=== PATIENT | female | born 1940 | race Caucasian/White ===

== ENCOUNTER 2018-07-04 18:54 | Inpatient (IN) | payer OTHER, MEDICARE, SELFPAY ==
--- NOTE | 2018-07-04 01:15 | RAD_ITS ---
STUDY: X-RAY - ABDOMEN/PELVIS REASON FOR EXAM: Female, 78 years old. MID AND LOWER ABD PAIN ALONG WITH N/V/D THAT STARTED YESTERDAY. NG PLACEMENT. TECHNIQUE: Single AP view of the abdomen / pelvis. COMPARISON: None. FINDINGS: Normal visualized lung bases. NG tube is seen its tip is at the gastric fundus is in good position. There is an unremarkable bowel gas pattern. There is no demonstrated free abdominal air. The visualized liver, spleen and kidneys are grossly normal in size and morphology. Normal soft tissue structures. Normal visualized osseous structures. RAD/Abdomen Single View (Portable) IMPRESSION: Normal x-ray examination of the abdomen and pelvis. Electronically Signed: Alexi John MD at 2:31 EDT Tel , Service support ,
[2018-07-04 18:55] VITALS: BP 155/90; PULSE 73; PULSE 81; RESP 14; RESP 18; TEMP 36.2; O2SAT 97; O2SAT 99; BMI 28.4
--- NOTE | 2018-07-04 20:11 | CT_ITS ---
STUDY: CT ABDOMEN AND PELVIS WITH CONTRAST REASON FOR EXAM: Female, 78 years old. Low abdominal pain RADIATION DOSAGE (If Supplied By Facility): CTDIvol = ( 16.19 ) mGy, DLP = ( 1059.67 ) mGycm TECHNIQUE: Transaxial images were obtained from the lower chest to the upper thighs with oral contrast. 100 ml of Isovue 300 contrast was administered. Sagittal and coronal images were reconstructed. Individualized dose optimization techniques were used for this CT. COMPARISON: None. FINDINGS: There is a small calcified granuloma in the periphery of the right lower lobe. There is no pleural effusion. The heart is normal in size. The liver is unremarkable. The gallbladder and biliary system are unremarkable. The spleen is unremarkable. The pancreas is unremarkable. The adrenal glands are unremarkable. The right kidney is unremarkable. There is no dilatation of the collecting system in the right kidney. There are benign cysts in the left kidney. The largest measures 4.5 cm in the lower pole. There is no dilatation of the collecting system in the left kidney. There is pyloric wall thickening. There are dilated loops of small bowel. Distal small bowel is decompressed. There are diverticula in the distal colon without adjacent stranding. The appendix is visualized and appears normal. There are minimal vascular calcifications. The inferior vena cava is unremarkable. The retroperitoneum is unremarkable. There is minimal free fluid in the left paracolic gutter. The urinary bladder is unremarkable. The uterus is normal in appearance. There are no abnormal masses in the adnexal regions. There is minimal fluid in the pelvis. There is a small umbilical hernia containing fat. There are moderate degenerative changes in the visualized spine. There is mild levoscoliosis of the lumbar spine. CT/Abdomen/Pelvis WITH Contrast IMPRESSION: There are findings of small bowel obstruction. The transition may be in the left pelvis or left lower quadrant. There is minimal ascites. There is no free air. There is diverticulosis of the distal colon. Electronically Signed: Tonya Alexander MD at 22:46 EDT Tel Direct: [phone], Service support ,
--- NOTE | 2018-07-04 20:11 | EKG12_ITS ---
Test Reason : NAUSEA Blood Pressure : / mmHG Vent. Rate : 060 BPM Atrial Rate : 060 BPM P-R Int : 134 ms QRS Dur : 074 ms QT Int : 480 ms P-R-T Axes : 067 070 231 degrees QTc Int : 480 ms Normal sinus rhythm Left ventricular hypertrophy T wave abnormality, consider inferior ischemia T wave abnormality, consider anterolateral ischemia Prolonged QT Abnormal ECG Confirmed by BJ JONES ([id number]), makeup editor ASHLEY TELLEZ ([id number]) on 07/09/2018 8:47:55 AM Referred By: Confirmed By:BJ JONES
[2018-07-04 20:13] LABS: Absolute Lymphocyte Count 1.32 X10^3/ul (0.83-4.51); Hematocrit 44.1 % (37-47); Hemoglobin 14.6 g/dl (12.0-15.0); Lymphocyte # 1.32 X10^3/ul (4.0); Lymphocyte % 17.1 % (19-41); Mean Corp Hgb Conc 33.1 g/gl (32-36); Mean Corpuscular Volume 87.5 fL (81-99); Mean Platelet Vol. 11.3 fl (6.2-12.0); Monocyte# 0.42 X10^3/uL; Monocyte% 5.4 % (0-10); Neutrophil # 5.96 X10^3/uL (2.7-7.7); Neutrophil % 77.4 % (47-70); Platelet Count 320 K/mm3 (150-450); RBC Distribution Width SD 44.2 fl (35.1-43.9); Red Blood Count 5.04 M/mm3 (4.2-5.4); White Blood Count 7.7 K/mm3 (4.4-11.0)
--- NOTE | 2018-07-04 20:14 | ED.DCSUM_ITS ---
- ER Visit Summary Date of Service: 07/04/18 Chief Complaint: Abdominal pain History of Present Illness: The patient is a 78 F presenting with nausea, vomiting, abdominal pain. She states this started yesterday. She had constipation yesterday but was able to have a small bowel movement this morning. She has felt nauseated with abdominal cramping throughout the day today. She denies fever. Denies chest pain or shortness of breath. Physical Examination: Vitals are stable. Patient is afebrile. Alert no acute distress. HEENT exam is unremarkable. Neck is supple. Lungs are clear and equal bilaterally. Heart is regular rate and rhythm. Abdomen is soft mild diffuse tenderness, no rebound or guarding. Extremities are unremarkable. Skin is warm and dry. No focal neurologic deficit. Remainder of exam is unremarkable. Emergency Department Course and Treatment: Patient was given morphine, Zofran IV. CBC, chemistries unremarkable other than glucose 147. AST is 39. Lipase is 52. Urinalysis unremarkable. Troponin is negative. Lactic acid is 1.9. EKG is sinus with anterior lateral and inferior T wave inversion. This is seen on previous EKG, T wave inversion is now more pronounced. Patient denies chest pain. CT abdomen pelvis shows there are findings of small bowel obstruction. The transition may be in the left pelvis or left lower quadrant. There is minimal ascites. There is no free air. There is diverticulosis of the distal colon. NG tube was ordered. Discussed with Dr. Sultana and Dr. Christine. Patient will be admitted. Disposition: Admission Impression: Small bowel obstruction This note was generated with [employer] dictation software. It may contain incorrect words, spelling, and punctuation that were not noted in review of the chart prior to signing ED Disposition - Plan for ED Patient: Chief Complaint: Nausea/Vomiting/Diarrhea Referrals: Meryl Mott MD [Primary Care Provider] -
[2018-07-04 20:19] LABS: POSITIVE COUNT NO; POSITIVE DIFFERENTIAL NO; POSITIVE MORPHOLOGY NO
[2018-07-04] MEDS: Ondansetron 4 MG/2 ML Vial IV (20:25)
[2018-07-04] MEDS: Morphine 4 MG/ML Syringe IV (20:29)
[2018-07-04 20:35] LABS: Anion Gap 8 (5-15); BUN 16 mg/dL (7-18); BUN/Creat Ratio 19.3 RATIO (10-20); Calcium,Total 10.2 mg/dL (8.5-10.1); Chloride 99 mmol/L (98-107); Creatinine, Serum 0.83 mg/dL (0.55-1.02); EST Glomerular Filtration Rate 71 mL/min (>60); Est Glom Filt Rate - Afr Amer 86 mL/min (>60); Estimated Creatinine Clearance 53.98 ml/min; Glucose 147 mg/dL (74-106); Potassium 4.8 mmol/L (3.5-5.1); Sodium Level 137 mmol/L (136-145)
[2018-07-04 20:54] VITALS: BP 148/70; PULSE 66; RESP 14; O2SAT 95
[2018-07-04 21:01] LABS: AST(SGOT) 39 U/L (15-37); Alanine Aminotransfer ALT/SGPT 31 U/L (13-56); Albumin, Serum 3.8 g/dL (3.2-5.0); Alkaline Phosphatase 81 U/L (45-117); Globulin 4.7 g/dL (2.2-4.2); Lipase 52 U/L (73-393); Protein, Total 8.5 g/dL (6.4-8.2)
[2018-07-04 21:06] LABS: Lactic Acid 1.9 mmol/L (0.4-2.0)
[2018-07-04 21:26] LABS: Bacteria 0 SEEN /hpf (None Seen); Mucous, Urine 0 SEEN /hpf (<or=2+)
[2018-07-04 21:33] LABS: Color, Urine Yellow (Yellow); Glucose, Dipstick Normal (Normal); Leukocyte Esterase-Dipstick 25 /ul (Negative); Nitrite-Dipstick Negative (Negative); Occult Blood-Urine 10 /ul (Negative); Protein-Dipstick 30 mg/dl (Negative); Urine Clarity Sl. Cloudy (Clear); Urine Urobilinogen 1 mg/dl (Normal)
[2018-07-04 21:47] LABS: Urine Bilirubin Dipstick 1 mg/dL (Negative)
[2018-07-04 21:49] LABS: Ketone-Dipstick 150 mg/dl (Negative)
--- NOTE | 2018-07-04 21:49 | ED.RN ---
lab called with critical lab results. urine ketones 150. Dr. kirby made aware no new orders at this time
[2018-07-04 21:50] LABS: Hyaline Cast 0-5 SEEN /lpf (0-5); Red Blood Cells-Urine 0-5 SEEN /hpf (0-5); Squamous Epithelial Cells - UA 0-5 SEEN /hpf (5-10); White Blood Cells 0-5 SEEN /hpf (0-5)
[2018-07-04 22:25] VITALS: BP 150/78; PULSE 83; RESP 16; O2SAT 98
--- NOTE | 2018-07-04 23:45 | PCM.HP.STD ---
Problem List (1) SBO (small bowel obstruction) Status: Acute (2) Acute electrocardiogram changes Status: Acute (3) HTN (hypertension) Status: Chronic Qualifiers: Hypertension type: essential hypertension Qualified Code(s): I10 - Essential (primary) hypertension (4) HLD (hyperlipidemia) Status: Chronic Qualifiers: Hyperlipidemia type: unspecified Qualified Code(s): E78.5 - Hyperlipidemia, unspecified (5) Diabetes mellitus, type II Status: Chronic Qualifiers: Diabetes mellitus termite control service representative insulin use: without senior care use Diabetes mellitus complication status: with unspecified complications Qualified Code(s): E11.8 - Type 2 diabetes mellitus with unspecified complications History of Present Illness Date of Admission: 07/04/18 Chief Complaint: Abdominal pain, N/V 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 Patient noted following initial loose stools she had no stools until this morning and noted it was a small mildly loose brown stool. Patient notes that her abdomen has felt bloated. Any attempts at oral intake today have resulted in emesis. Workup in the ED included CBC with WBC 7.7, heme globin 14.6, platelet 320 without marked shift, CMP with glucose 147, lactic acid 1.9, calcium 10.2, AST/ALT 39/31, troponin <0.015, EKG w/ non-specific T wave inversions noted on prior EKGs, more marked than prior, lipase 52, urinalysis with specific gravity 1.020 with ketones with evidence of dehydration, CT A/P w/ findings of a small bowel obstruction with possible transition in the left pelvis or left lower quadrant with minimal ascites and no evidence of free air with noted diverticulosis of the distal colon. In the ED patient administered normal saline, Zofran and morphine. Following discussions with the ED physician planned placement NG tube in the ED. ED physician discussed case with Dr. Sultana, surgeon who plans to continue to follow. Past Medical History Past Medical History (Chronic Problems): Chronic Problems HTN (hypertension) (Chronic) HLD (hyperlipidemia) (Chronic) Diabetes mellitus, type II (Chronic) Allergies Penicillins [PCN] Allergy (Verified 07/04/18 19:44) Rash albuterol [From Ventolin HFA] Adverse Reaction (Verified 07/04/18 19:44) Other Home Medications: Ambulatory Orders Medication Instructions Recorded Albuterol IH (ProAir) [Proair Hfa] 2 puff INHALATION Q4H PRN PRN 07/04/18 Aspirin E.C. [Ecotrin] 325 mg PO DAILY 07/04/18 Atorvastatin Calcium [Lipitor] 40 mg PO DAILY 07/04/18 Budesonide/Formoterol 160/4.5 2 puff INHALATION BID PRN 07/04/18 [Symbicort 160/4.5 Mcg Inhaler (SP)] Felodipine [Plendil] 10 mg PO DAILY 07/04/18 Hydrochlorothiazide [Hctz] 25 mg PO DAILY 07/04/18 Metoprolol Succinate 100 mg PO DAILY 07/04/18 Potassium Chloride 10 meq PO DAILY 07/04/18 Ramipril 10 mg PO DAILY 07/04/18 Surgical History: - - Fibroid myomectomy, tonsillectomy, bilateral hand surgery, right knee arthroscopic surgery. 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 Paternal History Items: - - Patient notes a maternal and paternal family history of heart disease with UT in her father at age 45 and in her mother at age 87 as well as a history of diabetes in both. Review of Systems Constitutional: Reports: Malaise, Weakness, Fatigue. Denies: Chills, Fever, Weight Change HEENT: Denies: Head Aches, Sinus Congestion, Sinus Drainage Cardiovascular: Denies: Chest Pain, Palpitations Respiratory: Denies: Cough, Shortness of breath at rest, Sputum production Gastrointestinal: Reports: Abdominal Pain, Diarrhea, Nausea, Vomiting Genitourinary: Denies: Dysuria Musculoskeletal: Denies: Joint Pain, Joint Tenderness Skin: Denies: Rash, Wounds Neurological: Denies: Numbness, Tingling, Focal weakness Psychiatric: Denies: Anxiety, Depression, Homicidal Ideations, Suicidal Ideations Hematologic/ Lymphatic: Denies: Easy Bruising, Easy Bleeding VTE Information - Inpt Only VTE Present on Admission: No VTE Mechan Device Prophylaxis: SCD's VTE Pharm Prophylaxis ordered?: Yes Patient Problems: Active and Suspected Problems SBO (small bowel obstruction) (Acute) Acute electrocardiogram changes (Acute) Subjective: Seated upright in the ED bed, fatigued appearance, notes pain mildly improved after recent morphine. Objective: Physical Examination: General: awake, alert, oriented x 3 and cooperative, seated upright in the ED bed, notes pain still ongoing, lessened w/ recent regimen. Skin: normal color, turgor, no icterus, cyanosis. HEENT: AT/NC, EOMI, PERRLA, dry MM, no carotid bruits or JVD noted. Lungs: CTA bilaterally, moderate effort, mild decrease BL bases, no rales, ronchi or wheezing. Heart: Regular rate and rhythm; no gallop, rub audible. Abdomen: soft, mildly generalized discomfort w/ palpation, moderate distention, absent BS, difficult to assess HSM secondary to discomfort. Extremities: no cyanosis, clubbing, or edema. Neurological: patient awake, alert, oriented x 3; cognitive function intact; pupils equally reactive to light and accomodation; cranial nerves II-XII grossly normal, moving all 4 extremities, no focal deficits, strength moderately to severely globally decreased secondary to acute presentation. Psychiatric: affect appears fatigued, no acute evidence of depressive or anxiety feelings. - Physical Exam Vital Signs Temp Pulse Resp BP Pulse Ox 97.2 F L 83 16 150/78 H 98 07/04/18 18:55 07/04/18 22:25 07/04/18 22:25 07/04/18 22:25 07/04/18 22:25 Oxygen Delivery Method Room Air Weight: 176 lb 2.389 oz Body Mass Index (BMI) 28.4 Laboratory Tests Past 24 Hrs 07/04/18 07/04/18 07/04/18 19:43 19:43 19:43 WBC 7.7 RBC 5.04 Hgb 14.6 Hct 44.1 MCV 87.5 MCH 29.0 MCHC 33.1 RDW 14.0 RDW Differential 44.2 H Plt Count 320 MPV 11.3 Immature Gran % (Auto) 0.100 Neut % (Auto) 77.4 H Lymph % (Auto) 17.1 L [place] % (Auto) 5.4 Eos % (Auto) 0.0 Baso % (Auto) 0.0 Absolute Neuts (auto) 6.0 Absolute Lymphs (auto) 1.32 Total Counted Not Reportable Sodium 137 Potassium 4.8 Chloride 99 Carbon Dioxide 30.0 Anion Gap 8 BUN 16 Creatinine 0.83 Estim Creat Clear Calc 53.98 Est GFR (MDRD) Af Amer 86 Est GFR (MDRD) Non-Af 71 BUN/Creatinine Ratio 19.3 Glucose 147 H Lactic Acid Calcium 10.2 H Total Bilirubin 0.70 Direct Bilirubin 0.10 AST 39 H ALT 31 Alkaline Phosphatase 81 Troponin I < 0.015 Total Protein 8.5 H Albumin 3.8 Globulin 4.7 H Lipase 52 L Urine Color Urine Clarity Urine pH Ur Specific [place] Urine Protein Urine Glucose (UA) Urine Ketones Urine Occult Blood Urine Nitrite Urine Bilirubin Urine Urobilinogen Ur Leukocyte Esterase Urine RBC Urine WBC Ur Squamous Epith Cells Urine Bacteria Hyaline Casts Urine Mucus 07/04/18 07/04/18 20:20 21:15 WBC RBC Hgb Hct MCV MCH MCHC RDW RDW Differential Plt Count MPV Immature Gran % (Auto) Neut % (Auto) Lymph % (Auto) [place] % (Auto) Eos % (Auto) Baso % (Auto) Absolute Neuts (auto) Absolute Lymphs (auto) Total Counted Sodium Potassium Chloride Carbon Dioxide Anion Gap BUN Creatinine Estim Creat Clear Calc Est GFR (MDRD) Af Amer Est GFR (MDRD) Non-Af BUN/Creatinine Ratio Glucose Lactic Acid 1.9 Calcium Total Bilirubin Direct Bilirubin AST ALT Alkaline Phosphatase Troponin I Total Protein Albumin Globulin Lipase Urine Color Yellow Urine Clarity Sl. Cloudy Urine pH 6.0 Ur Specific [place] 1.020 Urine Protein 30 H Urine Glucose (UA) Normal Urine Ketones 150 H Urine Occult Blood 10 H Urine Nitrite Negative Urine Bilirubin 1 H Urine Urobilinogen 1 H Ur Leukocyte Esterase 25 H Urine RBC 0-5 SEEN Urine WBC 0-5 SEEN Ur Squamous Epith Cells 0-5 SEEN Urine Bacteria 0 SEEN Hyaline Casts 0-5 SEEN Urine Mucus 0 SEEN Assessment/Plan All Active Problems SBO (small bowel obstruction) (Acute) Acute electrocardiogram changes (Acute) The patient is a 78 y/o F w/ PMHx: HTN, HLD, Diabetes mellitus type II, Asthma who presents to the [facility] ED on 07/04/18 with onset of generalized abdominal discomfort described as cramping starting the day prior following food intake, specifically her Cleary with then onset of loose bowels and on day of ED presentation worsened cramping with nausea and vomiting. (1) Abdominal pain, nausea, emesis w/ SBO: In the ED work-up included CT A/P w/ findings of a small bowel obstruction with possible transition in the left pelvis or left lower quadrant with minimal ascites and no evidence of free air with noted diverticulosis of the distal colon. Will admit to MS telemetry, maintain on IVFs, continue NGT to suction, strict I&Os, IV pain/anti-emetics PRN, serial KUB as needed to montior bowel function, Famotidine IV, maintain NPO on bowel rest. General surgery Dr. Sultana consulted, pending. (2) EKG Changes: Diffuse T-wave inversions, noted on prior EKGs, more pronounced upon current presentation, maintain on telemetry, repeat EKG in a.m., cycle cardiac enzymes, obtain magnesium level with supplementation if appropriate, obtain echo in case of operative needs. (3) Diabetes mellitus type II: Hold oral home regimen, NPO status, accu checks q 6 hours w/ ISS. (4) Chronic Asthma: ATC duonebs, PRN albuterol, HOB, IS parameters. (5) Hypertension: Holding oral medications, PRN hydralazine. (6) Hyperlipidemia: Hold home statin regimen. (7) DVT Prophylaxis: SCDs, lovenox. Code Visit Inpatient E&M: 47804 Init Hosp L3
--- NOTE | 2018-07-04 23:54 | HP.PCM_ITS ---
Problem List (1) SBO (small bowel obstruction) Status: Acute (2) Acute electrocardiogram changes Status: Acute (3) HTN (hypertension) Status: Chronic Qualifiers: Hypertension type: essential hypertension Qualified Code(s): I10 - Essential (primary) hypertension (4) HLD (hyperlipidemia) Status: Chronic Qualifiers: Hyperlipidemia type: unspecified Qualified Code(s): E78.5 - Hyperlipidemia, unspecified (5) Diabetes mellitus, type II Status: Chronic Qualifiers: Diabetes mellitus long term care administrator insulin use: without residential use Diabetes mellitus complication status: with unspecified complications Qualified Code(s): E11.8 - Type 2 diabetes mellitus with unspecified complications History of Present Illness Date of Admission: 07/04/18 Chief Complaint: Abdominal pain, N/V 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 Patient noted following initial loose stools she had no stools until this morning and noted it was a small mildly loose brown stool. Patient notes that her abdomen has felt bloated. Any attempts at oral intake today have resulted in emesis. Workup in the ED included CBC with WBC 7.7, heme globin 14.6, platelet 320 without marked shift, CMP with glucose 147, lactic acid 1.9, calcium 10.2, AST/ALT 39/31, troponin <0.015, EKG w/ non- specific T wave inversions noted on prior EKGs, more marked than prior, lipase 52, urinalysis with specific gravity 1.020 with ketones with evidence of dehydration, CT A/P w/ findings of a small bowel obstruction with possible transition in the left pelvis or left lower quadrant with minimal ascites and no evidence of free air with noted diverticulosis of the distal colon. In the ED patient administered normal saline, Zofran and morphine. Following discussions with the ED physician planned placement NG tube in the ED. ED physician discussed case with Dr. Sultana, surgeon who plans to continue to follow. Past Medical History Past Medical History (Chronic Problems): Chronic Problems HTN (hypertension) (Chronic) HLD (hyperlipidemia) (Chronic) Diabetes mellitus, type II (Chronic) Allergies Penicillins [PCN] Allergy (Verified 07/04/18 19:44) Rash albuterol [From Ventolin HFA] Adverse Reaction (Verified 07/04/18 19:44) Other Home Medications: Ambulatory Orders Medication Instructions Recorded Albuterol IH (ProAir) [Proair Hfa] 2 puff INHALATION Q4H PRN PRN 07/04/18 Aspirin E.C. [Ecotrin] 325 mg PO DAILY 07/04/18 Atorvastatin Calcium [Lipitor] 40 mg PO DAILY 07/04/18 Budesonide/Formoterol 160/4.5 2 puff INHALATION BID PRN 07/04/18 [Symbicort 160/4.5 Mcg Inhaler (SP)] Felodipine [Plendil] 10 mg PO DAILY 07/04/18 Hydrochlorothiazide [Hctz] 25 mg PO DAILY 07/04/18 Metoprolol Succinate 100 mg PO DAILY 07/04/18 Potassium Chloride 10 meq PO DAILY 07/04/18 Ramipril 10 mg PO DAILY 07/04/18 Surgical History: - - Fibroid myomectomy, tonsillectomy, bilateral hand surgery, right knee arthroscopic surgery. 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 Paternal History Items: - - Patient notes a maternal and paternal family history of heart disease with CA in her father at age 45 and in her mother at age 87 as well as a history of diabetes in both. Review of Systems Constitutional: Reports: Malaise, Weakness, Fatigue. Denies: Chills, Fever, Weight Change HEENT: Denies: Head Aches, Sinus Congestion, Sinus Drainage Cardiovascular: Denies: Chest Pain, Palpitations Respiratory: Denies: Cough, Shortness of breath at rest, Sputum production Gastrointestinal: Reports: Abdominal Pain, Diarrhea, Nausea, Vomiting Genitourinary: Denies: Dysuria Musculoskeletal: Denies: Joint Pain, Joint Tenderness Skin: Denies: Rash, Wounds Neurological: Denies: Numbness, Tingling, Focal weakness Psychiatric: Denies: Anxiety, Depression, Homicidal Ideations, Suicidal Ideations Hematologic/ Lymphatic: Denies: Easy Bruising, Easy Bleeding VTE Information - Inpt Only VTE Present on Admission: No VTE Mechan Device Prophylaxis: SCD's VTE Pharm Prophylaxis ordered?: Yes Patient Problems: Active and Suspected Problems SBO (small bowel obstruction) (Acute) Acute electrocardiogram changes (Acute) Subjective: Seated upright in the ED bed, fatigued appearance, notes pain mildly improved after recent morphine. Objective: Physical Examination: General: awake, alert, oriented x 3 and cooperative, seated upright in the ED bed, notes pain still ongoing, lessened w/ recent regimen. Skin: normal color, turgor, no icterus, cyanosis. HEENT: AT/NC, EOMI, PERRLA, dry MM, no carotid bruits or JVD noted. Lungs: CTA bilaterally, moderate effort, mild decrease BL bases, no rales, ronchi or wheezing. Heart: Regular rate and rhythm; no gallop, rub audible. Abdomen: soft, mildly generalized discomfort w/ palpation, moderate distention, absent BS, difficult to assess HSM secondary to discomfort. Extremities: no cyanosis, clubbing, or edema. Neurological: patient awake, alert, oriented x 3; cognitive function intact; pupils equally reactive to light and accomodation; cranial nerves II-XII grossly normal, moving all 4 extremities, no focal deficits, strength moderately to severely globally decreased secondary to acute presentation. Psychiatric: affect appears fatigued, no acute evidence of depressive or anxiety feelings. - Physical Exam Vital Signs Temp Pulse Resp BP Pulse Ox 97.2 F L 83 16 150/78 H 98 07/04/18 18:55 07/04/18 22:25 07/04/18 22:25 07/04/18 22:25 07/04/18 22:25 Oxygen Delivery Method Room Air Weight: 176 lb 2.389 oz Body Mass Index (BMI) 28.4 Laboratory Tests Past 24 Hrs 07/04/18 07/04/18 07/04/18 19:43 19:43 19:43 WBC 7.7 RBC 5.04 Hgb 14.6 Hct 44.1 MCV 87.5 MCH 29.0 MCHC 33.1 RDW 14.0 RDW Differential 44.2 H Plt Count 320 MPV 11.3 Immature Gran % (Auto) 0.100 Neut % (Auto) 77.4 H Lymph % (Auto) 17.1 L [place] % (Auto) 5.4 Eos % (Auto) 0.0 Baso % (Auto) 0.0 Absolute Neuts (auto) 6.0 Absolute Lymphs (auto) 1.32 Total Counted Not Reportable Sodium 137 Potassium 4.8 Chloride 99 Carbon Dioxide 30.0 Anion Gap 8 BUN 16 Creatinine 0.83 Estim Creat Clear Calc 53.98 Est GFR (MDRD) Af Amer 86 Est GFR (MDRD) Non-Af 71 BUN/Creatinine Ratio 19.3 Glucose 147 H Lactic Acid Calcium 10.2 H Total Bilirubin 0.70 Direct Bilirubin 0.10 AST 39 H ALT 31 Alkaline Phosphatase 81 Troponin I < 0.015 Total Protein 8.5 H Albumin 3.8 Globulin 4.7 H Lipase 52 L Urine Color Urine Clarity Urine pH Ur Specific [place] Urine Protein Urine Glucose (UA) Urine Ketones Urine Occult Blood Urine Nitrite Urine Bilirubin Urine Urobilinogen Ur Leukocyte Esterase Urine RBC Urine WBC Ur Squamous Epith Cells Urine Bacteria Hyaline Casts Urine Mucus 07/04/18 07/04/18 20:20 21:15 WBC RBC Hgb Hct MCV MCH MCHC RDW RDW Differential Plt Count MPV Immature Gran % (Auto) Neut % (Auto) Lymph % (Auto) [place] % (Auto) Eos % (Auto) Baso % (Auto) Absolute Neuts (auto) Absolute Lymphs (auto) Total Counted Sodium Potassium Chloride Carbon Dioxide Anion Gap BUN Creatinine Estim Creat Clear Calc Est GFR (MDRD) Af Amer Est GFR (MDRD) Non-Af BUN/Creatinine Ratio Glucose Lactic Acid 1.9 Calcium Total Bilirubin Direct Bilirubin AST ALT Alkaline Phosphatase Troponin I Total Protein Albumin Globulin Lipase Urine Color Yellow Urine Clarity Sl. Cloudy Urine pH 6.0 Ur Specific [place] 1.020 Urine Protein 30 H Urine Glucose (UA) Normal Urine Ketones 150 H Urine Occult Blood 10 H Urine Nitrite Negative Urine Bilirubin 1 H Urine Urobilinogen 1 H Ur Leukocyte Esterase 25 H Urine RBC 0-5 SEEN Urine WBC 0-5 SEEN Ur Squamous Epith Cells 0-5 SEEN Urine Bacteria 0 SEEN Hyaline Casts 0-5 SEEN Urine Mucus 0 SEEN Assessment/Plan All Active Problems SBO (small bowel obstruction) (Acute) Acute electrocardiogram changes (Acute) The patient is a 78 y/o F w/ PMHx: HTN, HLD, Diabetes mellitus type II, Asthma who presents to the [facility] ED on 07/04/18 with onset of generalized abdominal discomfort described as cramping starting the day prior following food intake, specifically her Cleary with then onset of loose bowels and on day of ED presentation worsened cramping with nausea and vomiting. (1) Abdominal pain, nausea, emesis w/ SBO: In the ED work-up included CT A/P w/ findings of a small bowel obstruction with possible transition in the left pelvis or left lower quadrant with minimal ascites and no evidence of free air with noted diverticulosis of the distal colon. Will admit to MS telemetry, maintain on IVFs, continue NGT to suction, strict I&Os, IV pain/anti-emetics PRN, serial KUB as needed to montior bowel function, Famotidine IV, maintain NPO on bowel rest. General surgery Dr. Sultana consulted, pending. (2) EKG Changes: Diffuse T-wave inversions, noted on prior EKGs, more pronounced upon current presentation, maintain on telemetry, repeat EKG in a.m., cycle cardiac enzymes, obtain magnesium level with supplementation if appropriate, obtain echo in case of operative needs. (3) Diabetes mellitus type II: Hold oral home regimen, NPO status, accu checks q 6 hours w/ ISS. (4) Chronic Asthma: ATC duonebs, PRN albuterol, HOB, IS parameters. (5) Hypertension: Holding oral medications, PRN hydralazine. (6) Hyperlipidemia: Hold home statin regimen. (7) DVT Prophylaxis: SCDs, lovenox. Code Visit Inpatient E&M: 24941 Init Hosp L3
[2018-07-05] VITALS (16 sets, daily range): BP systolic 124–176; BP diastolic 63–90; PULSE 73–102; RESP 16–18; TEMP 36.8–37.2; O2SAT 93–98; BMI 28.4
[2018-07-05] MEDS: Lidocaine 4% 5 ML Ampul 2 ML INHALATION (00:24)
[2018-07-05] MEDS: Morphine 4 MG/ML Syringe IV (00:26)
--- NOTE | 2018-07-05 02:45 | ECHOD_ITS ---
[id number] ECHO^ECHOD^Echo Complete [id number] TAG_START Cardiovascular Services Echocardiogram [facility] [place] [id number] Ordering Physician: Yadira Christine TAG_ENDED TAG_START Name: CARO BARRON Study Date: 07/05/2018 08:16 AM BP: 143/63 mmHg Patient Location: MS3^MS302^1 BSA: 1.9 m2 : 1940 Gender: Female Height: 66 in Age: 78 yrs Weight: 176 lb History: ABD PAIN, HTN, HLD, DM II, + cardiac fam Hx (dad @ 45). TAG_ENDED Reason For Study: ABN EKG Procedure This was a 2D Doppler, Color Flow transthoracic echocardiogram. Exam performed portable in patient room. Left Ventricle Mild concentric left ventricular hypertrophy. The estimated ejection fraction is 75 %. Stage 1 diastolic dysfunction. No regional wall motion abnormalities noted. TAG_START I Segments Size 1-2 small X - Cannot 1 - Normal 2 - 3 - Akinetic 4 - Dyskinetic3-5 moderate Interpret Hypokinetic 6-14 large 5 - Aneurysmal 15-16 diffuse TAG_ENDED Right Ventricle Normal size and thickness. Normal systolic function. Atria Normal left atrium. Normal right atrium. Normal atrial septum. Mitral Valve The mitral valve is structurally normal. No prolapse or stenosis seen. Tricuspid Valve Normal tricuspid valve. Trivial tricuspid valve insufficiency. Right ventricular systolic pressure estimated to be 32 mmHg. Aortic Valve Trisinus/trileaflet aortic valve. Mild diffuse aortic valve thickening. Mild aortic stenosis. Peak aortic valve gradient 19 mmHg. Mean aortic valve gradient 11 mmHg. Pulmonic Valve Normal pulmonic valve. Great Vessels Normal aortic root. Normal arch. Normal inferior vena cava. Inferior vena cava collapse with sniff. Pericardium/Pleural No pericardial effusion. MMode/2D Measurements & Calculations LVIDd: 3.9 cm IVSd: 1.3 cm LVOT diam: 2.0 cm LVIDs: 2.3 cm LVPWd: 1.2 cm LVOT area: 3.1 cm2 RVDd: 2.8 cm FS: 41.2 % Ao root diam: 3.0 cm LAV(MOD-bp): 47.5 ml LA A4 area: 17.7 cm2 LAV(MOD-bp) Indexed: 25.1 ml/m2 LAV(MOD-sp2): 47.0 ml LAV(MOD-sp4): 45.1 ml LA dimension(2D): 3.5 cm RA A4 area: 14.3 cm2 Time Measurements MV dec time: 0.23 sec Doppler Measurements & Calculations MV E max víctor: 75.6 cm/sec Lat Peak E' Víctor: 7.3 cm/sec Med Peak E' Víctor: 5.9 cm/sec MV A max víctor: 95.8 cm/sec E/E' lat: 10.3 E/E' med: 12.7 MV E/A: 0.79 Ao V2 max: 220.3 cm/sec LV V1 max: 143.9 cm/sec SV(LVOT): 94.6 ml Ao max P.4 mmHg LV V1 max P.3 mmHg Ao V2 mean: 153.1 cm/sec LV V1 mean P.8 mmHg Ao mean P.6 mmHg LV V1 mean: 102.8 cm/sec Ao V2 VTI: 39.6 cm LV V1 VTI: 30.9 cm RITA(I,D): 2.4 cm2 RITA(V,D): 2.0 cm2 PA V2 max: 119.2 cm/sec TR max víctor: 258.6 cm/sec TR max P.8 mmHg Interpretation Summary Mild concentric left ventricular hypertrophy. The estimated ejection fraction is 75 %. Stage 1 diastolic dysfunction. Trivial tricuspid valve insufficiency. Right ventricular systolic pressure estimated to be 32 mmHg. Mild aortic stenosis. Compared to echo report dated 06/24/2008, no appreciable changes noted. TAG_START TAG_ENDED Ordering Physician: Yadira Christine Referring Physician: Meryl Mott Performed By: Tatyana Harris RDCS, RVT
[2018-07-05] MEDS: 0.9% NaCl Peripheral Flush Adult/Peds IV (03:05)
[2018-07-05] MEDS: 0.9% Normal Saline 1,000 ML 125 ML IV ×2 (03:05→11:00)
[2018-07-05 03:20] LABS: Bedside Glucose 122 mg/dL (70-110)
--- NOTE | 2018-07-05 05:10 | RAD_ITS ---
STUDY: X-RAY - ABDOMEN/PELVIS REASON FOR EXAM: Female, 78 years old. History of small bowel obstruction. TECHNIQUE: Single AP view of the abdomen / pelvis. COMPARISON: Comparison is made with prior examination dated July 05, 2018 at 1:12 AM. FINDINGS: A nasogastric tube is seen with the tip in the body of the stomach. There are dilated small bowel loops in the left upper quadrant and left mid abdomen suggestive of a early or incomplete small bowel obstruction. A small amount of fecal material is seen in the colon. The visualized liver, spleen and kidneys are grossly normal in size and morphology. Contrast is seen within the urinary bladder. There are diffuse degenerative changes of the visualized lumbar spine. RAD/Abdomen Single View (Portable) IMPRESSION: Mildly distended small bowel loops in the left upper quadrant and left midabdomen. Follow-up is recommended. Electronically Signed: Ajith Blunt MD at 9:49 EDT Tel [phone], Service support ,
--- NOTE | 2018-07-05 05:55 | EKG12_ITS ---
Test Reason : AM Blood Pressure : / mmHG Vent. Rate : 086 BPM Atrial Rate : 086 BPM P-R Int : 138 ms QRS Dur : 074 ms QT Int : 384 ms P-R-T Axes : 061 053 223 degrees QTc Int : 459 ms Normal sinus rhythm T wave abnormality, consider inferior ischemia T wave abnormality, consider anterolateral ischemia Abnormal ECG When compared with ECG of 25-JUN-2008 07:35, MANUAL COMPARISON REQUIRED, DATA IS UNCONFIRMED Confirmed by BJ JONES ([id number]), editorial director ASHLEY TELLEZ ([id number]) on 07/09/2018 12:45:53 PM Referred By: TRAN Confirmed By:BJ JONES
[2018-07-05 06:18] LABS: Absolute Lymphocyte Count 1.34 X10^3/ul (0.83-4.51); Absolute Neutrophil Count 5.1 X10^3/uL (2.0-7.7); Basophil# 0.01 X10^3/uL; Basophil% 0.1 % (0-1); Hematocrit 37.7 % (37-47); Hemoglobin 12.4 g/dl (12.0-15.0); Lymphocyte # 1.34 X10^3/ul (4.0); Lymphocyte % 18.9 % (19-41); Mean Corp Hgb Conc 32.9 g/gl (32-36); Mean Corpuscular Hgb 28.7 pg (27.0-32.0); Mean Corpuscular Volume 87.3 fL (81-99); Mean Platelet Vol. 10.5 fl (6.2-12.0); Monocyte# 0.61 X10^3/uL; Monocyte% 8.6 % (0-10); Neutrophil # 5.13 X10^3/uL (2.7-7.7); Neutrophil % 72.3 % (47-70); Platelet Count 267 K/mm3 (150-450); RBC Distribution Width CV 13.7 % (11.6-14.6); RBC Distribution Width SD 42.9 fl (35.1-43.9); Red Blood Count 4.32 M/mm3 (4.2-5.4); White Blood Count 7.1 K/mm3 (4.4-11.0)
[2018-07-05 06:25] LABS: POSITIVE COUNT NO; POSITIVE DIFFERENTIAL NO; POSITIVE MORPHOLOGY NO
[2018-07-05 06:26] LABS: Bedside Glucose 119 mg/dL (70-110)
[2018-07-05 06:28] LABS: Anion Gap 9 (5-15); BUN 14 mg/dL (7-18); BUN/Creat Ratio 25.5 RATIO (10-20); Calcium,Total 8.9 mg/dL (8.5-10.1); Chloride 104 mmol/L (98-107); Creatinine, Serum 0.55 mg/dL (0.55-1.02); EST Glomerular Filtration Rate 114 mL/min (>60); Est Glom Filt Rate - Afr Amer 138 mL/min (>60); Glucose 120 mg/dL (74-106); Potassium 3.2 mmol/L (3.5-5.1); Sodium Level 141 mmol/L (136-145)
[2018-07-05] MEDS: Ipratropium/Albuterol Sulfate 3 ML AMPUL.NEB INHALATION ×3 (06:43→18:48)
--- NOTE | 2018-07-05 07:26 | PCM.CONS.GEN ---
Reason for Consult Date of Consultation: 07/05/18 History of Present Illness: The patient is a 78 year old F who yesterday noted the onset of abdominal discomfort, abdominal pain nausea and vomiting and obstipation. she is a professor at the [employer]. She initially wondered if she was developing a stomach flu or viral infection related to the students. She stayed home and stayed in bed after canceling her classes when her pain became more severe. As this persisted, she presented to the [facility] emergency department. Evaluation there included a CT scan of the abdomen and pelvis which demonstrated a small bowel obstruction which was felt to be at also having a transition point with a scant amount of free fluid. The patient had a previous laparoscopic uterine myomectomy performed in the past by Dr. Adam. She had no other abdominal surgical procedures. a nasogastric tube was placed. This morning, the patient notes minimal abdominal pain. She feels that her bowels are starting to wake up a bit but she has not had flatus or bowel movement yet Past Medical History Past Medical History (Chronic Problems): Chronic Problems HTN (hypertension) (Chronic) HLD (hyperlipidemia) (Chronic) Diabetes mellitus, type II (Chronic) Allergies Penicillins [PCN] Allergy (Verified 07/04/18 19:44) Rash albuterol [From Ventolin HFA] Adverse Reaction (Verified 07/04/18 19:44) Other Home Medications: Ambulatory Orders Medication Instructions Recorded Albuterol IH (ProAir) [Proair Hfa] 2 puff INHALATION Q4H PRN PRN 07/04/18 Aspirin E.C. [Ecotrin] 325 mg PO DAILY 07/04/18 Atorvastatin Calcium [Lipitor] 40 mg PO DAILY 07/04/18 Budesonide/Formoterol 160/4.5 2 puff INHALATION BID PRN 07/04/18 [Symbicort 160/4.5 Mcg Inhaler (SP)] Felodipine [Plendil] 10 mg PO DAILY 07/04/18 Hydrochlorothiazide [Hctz] 25 mg PO DAILY 07/04/18 Metoprolol Succinate 100 mg PO DAILY 07/04/18 Potassium Chloride 10 meq PO DAILY 07/04/18 Ramipril 10 mg PO DAILY 07/04/18 Surgical History: - - Fibroid myomectomy, tonsillectomy, bilateral hand surgery, right knee arthroscopic surgery. 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 Paternal History Items: - - Patient notes a maternal and paternal family history of heart disease with SC in her father at age 45 and in her mother at age 87 as well as a history of diabetes in both. Review of Systems Constitutional: Reports: Anorexia. Denies: Chills, Fever, Weight Change HEENT: Denies: Head Aches, Sinus Congestion, Sinus Drainage Cardiovascular: Denies: Chest Pain, Palpitations Respiratory: Denies: Cough, Shortness of breath at rest, Sputum production Gastrointestinal: Reports: Abdominal Pain, Nausea, Vomiting Genitourinary: Denies: Dysuria Musculoskeletal: Denies: Joint Pain, Joint Tenderness Skin: Denies: Rash, Wounds Neurological: Denies: Numbness, Tingling, Focal weakness Psychiatric: Denies: Anxiety, Depression, Homicidal Ideations, Suicidal Ideations Hematologic/ Lymphatic: Denies: Easy Bruising, Easy Bleeding Patient Problems: Active and Suspected Problems SBO (small bowel obstruction) (Acute) Acute electrocardiogram changes (Acute) - Physical Exam General: Alert, Oriented x3, Cooperative HEENT: Atraumatic, PERRLA, EOMI, Normocephalic Neck: Supple, No JVD, Negative Carotid Bruits Lungs: Clear to auscultation, Normal air movement Cardiovascular: Regular rate, No murmurs Abdomen: Soft, Non Tender, Hypoactive Bowel Sounds Extremities: No edema, Capillary Refill Less than 3 Seconds Skin: No rashes, No breakdown Musculoskeletal: No Tenderness to Palpation of Joints or Extremities Neurological: Cranial nerves II-XII grossly intact Psych/Mental Status: Normal Affect, Appropriate Vital Signs Temp Pulse Resp BP Pulse Ox 98.9 F 84 16 143/63 H 97 07/05/18 02:39 07/05/18 04:04 07/05/18 02:39 07/05/18 02:39 07/05/18 02:39 Oxygen Delivery Method Room Air Weight: 80 kg Body Mass Index (BMI) 28.4 Intake and Output for Last 24 Hours 07/03/18 07/04/18 07/05/18 23:59 23:59 23:59 Intake Total 644 / 644 Output Total 950 / 950 Balance -306 / -306 Laboratory Tests Past 24 Hrs 07/04/18 07/04/18 07/04/18 19:43 19:43 19:43 WBC 7.7 RBC 5.04 Hgb 14.6 Hct 44.1 MCV 87.5 MCH 29.0 MCHC 33.1 RDW 14.0 RDW Differential 44.2 H Plt Count 320 MPV 11.3 Immature Gran % (Auto) 0.100 Neut % (Auto) 77.4 H Lymph % (Auto) 17.1 L [place] % (Auto) 5.4 Eos % (Auto) 0.0 Baso % (Auto) 0.0 Absolute Neuts (auto) 6.0 Absolute Lymphs (auto) 1.32 Total Counted Not Reportable Sodium 137 Potassium 4.8 Chloride 99 Carbon Dioxide 30.0 Anion Gap 8 BUN 16 Creatinine 0.83 Estim Creat Clear Calc 53.98 Est GFR (MDRD) Af Amer 86 Est GFR (MDRD) Non-Af 71 BUN/Creatinine Ratio 19.3 Glucose 147 H Lactic Acid Calcium 10.2 H Magnesium Total Bilirubin 0.70 Direct Bilirubin 0.10 AST 39 H ALT 31 Alkaline Phosphatase 81 Troponin I < 0.015 Total Protein 8.5 H Albumin 3.8 Globulin 4.7 H Lipase 52 L Urine Color Urine Clarity Urine pH Ur Specific [place] Urine Protein Urine Glucose (UA) Urine Ketones Urine Occult Blood Urine Nitrite Urine Bilirubin Urine Urobilinogen Ur Leukocyte Esterase Urine RBC Urine WBC Ur Squamous Epith Cells Urine Bacteria Hyaline Casts Urine Mucus 07/04/18 07/04/18 07/05/18 20:20 21:15 03:16 WBC RBC Hgb Hct MCV MCH MCHC RDW RDW Differential Plt Count MPV Immature Gran % (Auto) Neut % (Auto) Lymph % (Auto) [place] % (Auto) Eos % (Auto) Baso % (Auto) Absolute Neuts (auto) Absolute Lymphs (auto) Total Counted Sodium Potassium Chloride Carbon Dioxide Anion Gap BUN Creatinine Estim Creat Clear Calc Est GFR (MDRD) Af Amer Est GFR (MDRD) Non-Af BUN/Creatinine Ratio Glucose Lactic Acid 1.9 Calcium Magnesium 2.0 Total Bilirubin Direct Bilirubin AST ALT Alkaline Phosphatase Troponin I < 0.015 Total Protein Albumin Globulin Lipase Urine Color Yellow Urine Clarity Sl. Cloudy Urine pH 6.0 Ur Specific [place] 1.020 Urine Protein 30 H Urine Glucose (UA) Normal Urine Ketones 150 H Urine Occult Blood 10 H Urine Nitrite Negative Urine Bilirubin 1 H Urine Urobilinogen 1 H Ur Leukocyte Esterase 25 H Urine RBC 0-5 SEEN Urine WBC 0-5 SEEN Ur Squamous Epith Cells 0-5 SEEN Urine Bacteria 0 SEEN Hyaline Casts 0-5 SEEN Urine Mucus 0 SEEN 07/05/18 07/05/18 05:50 05:50 WBC 7.1 RBC 4.32 Hgb 12.4 Hct 37.7 MCV 87.3 MCH 28.7 MCHC 32.9 RDW 13.7 RDW Differential 42.9 Plt Count 267 MPV 10.5 Immature Gran % (Auto) 0.100 Neut % (Auto) 72.3 H Lymph % (Auto) 18.9 L [place] % (Auto) 8.6 Eos % (Auto) 0.0 Baso % (Auto) 0.1 Absolute Neuts (auto) 5.1 Absolute Lymphs (auto) 1.34 Total Counted Not Reportable Sodium 141 Potassium 3.2 L Chloride 104 Carbon Dioxide 28.0 Anion Gap 9 BUN 14 Creatinine 0.55 Estim Creat Clear Calc 44.80 Est GFR (MDRD) Af Amer 138 Est GFR (MDRD) Non-Af 114 BUN/Creatinine Ratio 25.5 H Glucose 120 H Lactic Acid Calcium 8.9 Magnesium Total Bilirubin Direct Bilirubin AST ALT Alkaline Phosphatase Troponin I < 0.015 Total Protein Albumin Globulin Lipase Urine Color Urine Clarity Urine pH Ur Specific [place] Urine Protein Urine Glucose (UA) Urine Ketones Urine Occult Blood Urine Nitrite Urine Bilirubin Urine Urobilinogen Ur Leukocyte Esterase Urine RBC Urine WBC Ur Squamous Epith Cells Urine Bacteria Hyaline Casts Urine Mucus POC Glucose 07/05/18 07/05/18 06:19 03:08 POC Glucose 119 H 122 H Assessment/Plan All Active Problems SBO (small bowel obstruction) (Acute) Acute electrocardiogram changes (Acute) small bowel obstruction - pain improving. Will continue NG to low suction and bowel rest. serial exams and obstructive series. anticipate will resolve with conservative treatment. patient is instructed to call the nurse immediately if she is any worsening abdominal pain. We discussed the fact that 70% of small bowel obstructions resolved with conservative treatment.
[2018-07-05] MEDS: Enoxaparin 40 MG/0.4 ML Syringe SC (09:29)
--- NOTE | 2018-07-05 11:01 | PCM.PN.HOSP ---
Patient Problems: Active and Suspected Problems SBO (small bowel obstruction) (Acute) Acute electrocardiogram changes (Acute) Subjective: Abdominal pain is improved, no Flatus or Bm but feels movement Vitals/I&O's: Vital Signs Temp Pulse Resp BP Pulse Ox 98.3 F 93 18 145/68 H 93 07/05/18 08:30 07/05/18 08:30 07/05/18 08:30 07/05/18 08:30 07/05/18 08:30 Oxygen Delivery Method Room Air Weight: 176 lb 5.917 oz Body Mass Index (BMI) 28.4 Intake and Output for Last 24 Hours 07/03/18 07/04/18 07/05/18 23:59 23:59 23:59 Intake Total 769 / 769 Output Total 950 / 950 Balance -181 / -181 General: Alert, Oriented x3, Cooperative, No apparent distress HEENT: Atraumatic, EOMI, Normocephalic Oral: Moist Mucosa Neck: Supple, No JVD Lungs: Clear to auscultation, Normal air movement, No rhonchi, No wheeze, No rales Cardiovascular: Regular rate, Regular Rhythm, Normal S1, Normal S2, No murmurs Abdomen: Soft, Non Tender, Non-Distended, No Hepato-splenomegaly Extremities: No edema, Capillary Refill Less than 3 Seconds Skin: No rashes, No breakdown Neurological: Neuro grossly intact, Sensory exam intact to light touch and pain Psych/Mental Status: Normal Affect, Appropriate Laboratory Results 07/04/18 19:43: WBC 7.7, RBC 5.04, Hgb 14.6, Hct 44.1, MCV 87.5, MCH 29.0, MCHC 33.1, RDW 14.0, RDW Differential 44.2 H, Plt Count 320, MPV 11.3, Immature Gran % (Auto) 0.100, Neut % (Auto) 77.4 H, Lymph % (Auto) 17.1 L, [place] % (Auto) 5.4, Eos % (Auto) 0.0, Baso % (Auto) 0.0, Absolute Neuts (auto) 6.0, Absolute Lymphs (auto) 1.32, Total Counted Not Reportable 07/04/18 19:43: Sodium 137, Potassium 4.8, Chloride 99, Carbon Dioxide 30.0, Anion Gap 8, BUN 16, Creatinine 0.83, Estim Creat Clear Calc 53.98, Est GFR (MDRD) Af Amer 86, Est GFR (MDRD) Non-Af 71, BUN/Creatinine Ratio 19.3, Glucose 147 H, Calcium 10.2 H 07/04/18 19:43: Total Bilirubin 0.70, Direct Bilirubin 0.10, AST 39 H, ALT 31, Alkaline Phosphatase 81, Troponin I < 0.015, Total Protein 8.5 H, Albumin 3.8, Globulin 4.7 H, Lipase 52 L 07/04/18 20:20: Lactic Acid 1.9 07/04/18 21:15: Urine Color Yellow, Urine Clarity Sl. Cloudy, Urine pH 6.0, Ur Specific [place] 1.020, Urine Protein 30 H, Urine Glucose (UA) Normal, Urine Ketones 150 H, Urine Occult Blood 10 H, Urine Nitrite Negative, Urine Bilirubin 1 H, Urine Urobilinogen 1 H, Ur Leukocyte Esterase 25 H, Urine RBC 0-5 SEEN, Urine WBC 0-5 SEEN, Ur Squamous Epith Cells 0-5 SEEN, Urine Bacteria 0 SEEN, Hyaline Casts 0-5 SEEN, Urine Mucus 0 SEEN 07/05/18 03:08: POC Glucose 122 H 07/05/18 03:16: Magnesium 2.0, Troponin I < 0.015 07/05/18 05:50: WBC 7.1, RBC 4.32, Hgb 12.4, Hct 37.7, MCV 87.3, MCH 28.7, MCHC 32.9, RDW 13.7, RDW Differential 42.9, Plt Count 267, MPV 10.5, Immature Gran % (Auto) 0.100, Neut % (Auto) 72.3 H, Lymph % (Auto) 18.9 L, [place] % (Auto) 8.6, Eos % (Auto) 0.0, Baso % (Auto) 0.1, Absolute Neuts (auto) 5.1, Absolute Lymphs (auto) 1.34, Total Counted Not Reportable 07/05/18 05:50: Sodium 141, Potassium 3.2 L, Chloride 104, Carbon Dioxide 28.0, Anion Gap 9, BUN 14, Creatinine 0.55, Estim Creat Clear Calc 44.80, Est GFR (MDRD) Af Amer 138, Est GFR (MDRD) Non-Af 114, BUN/Creatinine Ratio 25.5 H, Glucose 120 H, Calcium 8.9, Troponin I < 0.015 07/05/18 06:19: POC Glucose 119 H 07/05/18 09:15: Troponin I < 0.015 Current Medications Albuterol Sulfate (Ventolin Aerosols) 2.5 mg INHALATION Q2H PRN PRN PRN Reason: dyspnea, wheezing Albuterol/Ipratropium (Duoneb) 3 ml INHALATION Q6HWA.RT [facility] Last Admin: 07/05/18 06:43 Dose: 3 ml Enoxaparin Sodium (Lovenox) 40 mg SC DAILY@1000 JP Last Admin: 07/05/18 09:29 Dose: 40 mg Hydralazine HCl (Apresoline Iv) 10 mg IV Q4H PRN PRN PRN Reason: SBP > 160 Sodium Chloride () 1,000 mls @ 125 mls/hr IV .Q8H [facility] Last Admin: 07/05/18 03:05 Dose: 125 mls/hr Famotidine 20 mg/ Sodium (Chloride) 10 mls @ 300 mls/hr IV Q12 [facility] Last Admin: 07/05/18 10:55 Dose: 300 mls/hr Insulin Human Lispro (Humalog Kwikpen (Bkc)) 0 unit SC Q6 [facility]; Protocol Last Admin: 07/05/18 06:32 Dose: Not Given Magnesium Hydroxide (Milk Of Magnesia) 30 ml PO DAILY PRN PRN PRN Reason: Constipation Metoprolol Succinate (Toprol Xl (Beta Vitor)) 100 mg PO DAILY [facility] Morphine Sulfate () 2 - 4 mg IV Q4H PRN PRN PRN Reason: PAIN Morphine Sulfate () 2 - 4 mg IV Q4H PRN PRN PRN Reason: PAIN Ondansetron HCl (Zofran) 4 mg IV Q8H PRN PRN PRN Reason: NAUSEA/VOMITING Phenol/Menthol (Chloraseptic (Bkc)) 5 spray MM Q2H PRN PRN PRN Reason: SORE THROAT Promethazine HCl (Phenergan) 12.5 mg IV Q6H PRN PRN PRN Reason: NAUSEA/VOMITING Sodium Chloride () 5 - 30 ml IV UD PRN PRN Reason: SALINE FLUSH Last Admin: 07/05/18 03:05 Dose: 10 ml Medical Necessity - Tobacco Use Smoking Status: Never smoker Tobacco Use: Non-smoker Assessment/Plan All Active Problems SBO (small bowel obstruction) (Acute) Acute electrocardiogram changes (Acute) 1. SBO from a prior omentectomy 39 years ago/Hypokalemia - CT consistent with SBO - NGT to LIWS - Can clamp for BB - IVF@100 - replace KCl, if not PO intake tomorrow will switch to D51/2NS+KCl - Pepcid 2. T wave inversion in the inferior and anteriolateral leads/HTN/HLD -She denies chest pain and states that she has never had a heart attack - Not new changes - Troponin is negative x4 - Echo completed, read is pending - Hold oral medications except BB, monitor HTN, PRN hydralazine - Hold statin until tolerating PO 3. DM2 - Hold home regime - SSI and monitor 4. Chronic asthma - Duoneb and albuterol nebs PRN wheeze DVT: SCD/Lovenox Diet: NPO Code Visit Inpatient E&M: 10945 Subs Hosp L2
--- NOTE | 2018-07-05 11:09 | PN_ITS ---
Patient Problems: Active and Suspected Problems SBO (small bowel obstruction) (Acute) Acute electrocardiogram changes (Acute) Subjective: Abdominal pain is improved, no Flatus or Bm but feels movement Vitals/I&O's: Vital Signs Temp Pulse Resp BP Pulse Ox 98.3 F 93 18 145/68 H 93 07/05/18 08:30 07/05/18 08:30 07/05/18 08:30 07/05/18 08:30 07/05/18 08:30 Oxygen Delivery Method Room Air Weight: 176 lb 5.917 oz Body Mass Index (BMI) 28.4 Intake and Output for Last 24 Hours 07/03/18 07/04/18 07/05/18 23:59 23:59 23:59 Intake Total 769 / 769 Output Total 950 / 950 Balance -181 / -181 General: Alert, Oriented x3, Cooperative, No apparent distress HEENT: Atraumatic, EOMI, Normocephalic Oral: Moist Mucosa Neck: Supple, No JVD Lungs: Clear to auscultation, Normal air movement, No rhonchi, No wheeze, No rales Cardiovascular: Regular rate, Regular Rhythm, Normal S1, Normal S2, No murmurs Abdomen: Soft, Non Tender, Non-Distended, No Hepato-splenomegaly Extremities: No edema, Capillary Refill Less than 3 Seconds Skin: No rashes, No breakdown Neurological: Neuro grossly intact, Sensory exam intact to light touch and pain Psych/Mental Status: Normal Affect, Appropriate Laboratory Results 07/04/18 19:43: WBC 7.7, RBC 5.04, Hgb 14.6, Hct 44.1, MCV 87.5, MCH 29.0, MCHC 33.1, RDW 14.0, RDW Differential 44.2 H, Plt Count 320, MPV 11.3, Immature Gran % (Auto) 0.100, Neut % (Auto) 77.4 H, Lymph % (Auto) 17.1 L, [place] % (Auto) 5.4, Eos % (Auto) 0.0, Baso % (Auto) 0.0, Absolute Neuts (auto) 6.0, Absolute Lymphs (auto) 1.32, Total Counted Not Reportable 07/04/18 19:43: Sodium 137, Potassium 4.8, Chloride 99, Carbon Dioxide 30.0, Anion Gap 8, BUN 16, Creatinine 0.83, Estim Creat Clear Calc 53.98, Est GFR (MDRD) Af Amer 86, Est GFR (MDRD) Non-Af 71, BUN/Creatinine Ratio 19.3, Glucose 147 H, Calcium 10.2 H 07/04/18 19:43: Total Bilirubin 0.70, Direct Bilirubin 0.10, AST 39 H, ALT 31, Alkaline Phosphatase 81, Troponin I < 0.015, Total Protein 8.5 H, Albumin 3.8, Globulin 4.7 H, Lipase 52 L 07/04/18 20:20: Lactic Acid 1.9 07/04/18 21:15: Urine Color Yellow, Urine Clarity Sl. Cloudy, Urine pH 6.0, Ur Specific [place] 1.020, Urine Protein 30 H, Urine Glucose (UA) Normal, Urine Ketones 150 H, Urine Occult Blood 10 H, Urine Nitrite Negative, Urine Bilirubin 1 H, Urine Urobilinogen 1 H, Ur Leukocyte Esterase 25 H, Urine RBC 0-5 SEEN, Urine WBC 0-5 SEEN, Ur Squamous Epith Cells 0-5 SEEN, Urine Bacteria 0 SEEN, Hyaline Casts 0-5 SEEN, Urine Mucus 0 SEEN 07/05/18 03:08: POC Glucose 122 H 07/05/18 03:16: Magnesium 2.0, Troponin I < 0.015 07/05/18 05:50: WBC 7.1, RBC 4.32, Hgb 12.4, Hct 37.7, MCV 87.3, MCH 28.7, MCHC 32.9, RDW 13.7, RDW Differential 42.9, Plt Count 267, MPV 10.5, Immature Gran % (Auto) 0.100, Neut % (Auto) 72.3 H, Lymph % (Auto) 18.9 L, [place] % (Auto) 8.6, Eos % (Auto) 0.0, Baso % (Auto) 0.1, Absolute Neuts (auto) 5.1, Absolute Lymphs (auto) 1.34, Total Counted Not Reportable 07/05/18 05:50: Sodium 141, Potassium 3.2 L, Chloride 104, Carbon Dioxide 28.0, Anion Gap 9, BUN 14, Creatinine 0.55, Estim Creat Clear Calc 44.80, Est GFR (MDRD) Af Amer 138, Est GFR (MDRD) Non-Af 114, BUN/Creatinine Ratio 25.5 H, Glucose 120 H, Calcium 8.9, Troponin I < 0.015 07/05/18 06:19: POC Glucose 119 H 07/05/18 09:15: Troponin I < 0.015 Current Medications Albuterol Sulfate (Ventolin Aerosols) 2.5 mg INHALATION Q2H PRN PRN PRN Reason: dyspnea, wheezing Albuterol/Ipratropium (Duoneb) [address] [facility] Last Admin: 07/05/18 06:43 Dose: 3 ml Enoxaparin Sodium (Lovenox) 40 mg SC DAILY@1000 JP Last Admin: 07/05/18 09:29 Dose: 40 mg Hydralazine HCl (Apresoline Iv) 10 mg IV Q4H PRN PRN PRN Reason: SBP > 160 Sodium Chloride () 1,000 mls @ 125 mls/hr IV .Q8H [facility] Last Admin: 07/05/18 03:05 Dose: 125 mls/hr Famotidine 20 mg/ Sodium (Chloride) 10 mls @ 300 mls/hr IV Q12 [facility] Last Admin: 07/05/18 10:55 Dose: 300 mls/hr Insulin Human Lispro (Humalog Kwikpen (Bkc)) 0 unit SC Q6 [facility]; Protocol Last Admin: 07/05/18 06:32 Dose: Not Given Magnesium Hydroxide (Milk Of Magnesia) 30 ml PO DAILY PRN PRN PRN Reason: Constipation Metoprolol Succinate (Toprol Xl (Beta Vitor)) [address] [facility] Morphine Sulfate () 2 - 4 mg IV Q4H PRN PRN PRN Reason: PAIN Morphine Sulfate () 2 - 4 mg IV Q4H PRN PRN PRN Reason: PAIN Ondansetron HCl (Zofran) 4 mg IV Q8H PRN PRN PRN Reason: NAUSEA/VOMITING Phenol/Menthol (Chloraseptic (Bkc)) 5 spray MM Q2H PRN PRN PRN Reason: SORE THROAT Promethazine HCl (Phenergan) 12.5 mg IV Q6H PRN PRN PRN Reason: NAUSEA/VOMITING Sodium Chloride () 5 - 30 ml IV UD PRN PRN Reason: SALINE FLUSH Last Admin: 07/05/18 03:05 Dose: 10 ml Medical Necessity - Tobacco Use Smoking Status: Never smoker Tobacco Use: Non-smoker Assessment/Plan All Active Problems SBO (small bowel obstruction) (Acute) Acute electrocardiogram changes (Acute) 1. SBO from a prior omentectomy 39 years ago/Hypokalemia - CT consistent with SBO - NGT to LIWS - Can clamp for BB - IVF@100 - replace KCl, if not PO intake tomorrow will switch to D51/2NS+KCl - Pepcid 2. T wave inversion in the inferior and anteriolateral leads/HTN/HLD -She denies chest pain and states that she has never had a heart attack - Not new changes - Troponin is negative x4 - Echo completed, read is pending - Hold oral medications except BB, monitor HTN, PRN hydralazine - Hold statin until tolerating PO 3. DM2 - Hold home regime - SSI and monitor 4. Chronic asthma - Duoneb and albuterol nebs PRN wheeze DVT: SCD/Lovenox Diet: NPO Code Visit Inpatient E&M: 66200 Subs Hosp L2
[2018-07-05 11:41] LABS: Bedside Glucose 104 mg/dL (70-110)
--- NOTE | 2018-07-05 11:50 | CASEMGMT ---
RN SHAY Face to Face with patient for initial transition planning/care coordination assessment. RN CM introduced self and role at [facility]. Patient lying in bed, alert and oriented. Patient willing to participate in assessment and is able to answer all questions appropriately. Care providers, pharmacy, and demographics verified. Patient wishes to discharge home, denies need for home health at this time. Patient states she has no further needs or concerns at this time. CM to follow for discharge planning needs that may arise. PCP: [facility] Specialists: None Preferred Pharmacy: [facility] Insurance: [employer] Prescription Benefit: [employer] Living Will/HPOA: yes LNOK: Patient has friends and neighbors Living Arrangements: Lives alone in [address], independent. 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 Angela SIMON, RN, CM
[2018-07-05] MEDS: Metoprolol(XL)Succ 100 MG Tablet PO (14:29)
[2018-07-05 18:15] LABS: Bedside Glucose 99 mg/dL (70-110)
[2018-07-05] MEDS: hydrALAZINE 20 MG/ML Vial 10 MG IV (19:51)
[2018-07-05] MEDS: Ondansetron 4 MG/2 ML Vial IV (20:05)
[2018-07-05] MEDS: Morphine 2 MG/ML Syringe IV (20:06)
--- NOTE | 2018-07-05 23:54 | NURSING ---
pt bs 130, felt warm, temp taken, 100.3 ta.
[2018-07-06] VITALS (16 sets, daily range): BP systolic 144–168; BP diastolic 74–88; PULSE 74–109; RESP 16–18; TEMP 36.7–37.4; O2SAT 93–96
[2018-07-06 00:31] LABS: Bedside Glucose 130 mg/dL (70-110)
--- NOTE | 2018-07-06 01:19 | NURSING ---
assisted the pt up to the restroom, then into bed per her request.
[2018-07-06] MEDS: 0.9% Normal Saline 1,000 ML 125 ML IV ×3 (03:28→20:05)
--- NOTE | 2018-07-06 05:00 | RAD_ITS ---
STUDY: X-RAY - ABDOMEN/PELVIS REASON FOR EXAM: Female, 78 years old. History of small bowel obstruction. TECHNIQUE: AP supine and decubitus views of the abdomen and pelvis. COMPARISON: 07/05/2018. FINDINGS: There again is a nasogastric tube with its tip in the region of the gastric fundus however the sidehole is close to the gastroesophageal junction. There again are dilated small bowel loops in the left upper quadrant unchanged since the prior examination which could be due to partial small bowel obstruction. There is no demonstrated free abdominal air. The visualized liver, spleen and kidneys are grossly normal in size. Normal soft tissue structures. There are diffuse degenerative changes of the visualized lumbar spine. RAD/Abd Inc Decub and/or Erect IMPRESSION: Persistent dilatation of proximal small bowel loops in the left upper quadrant essentially unchanged since the prior examination. Electronically Signed: Carlo Yañez MD at 8:22 EDT Tel , Service support ,
[2018-07-06 05:55] LABS: Absolute Lymphocyte Count 0.95 X10^3/ul (0.83-4.51); Basophil# 0.01 X10^3/uL; Basophil% 0.1 % (0-1); Eosinophil# 0.01 X10^3/uL; Eosinophils% 0.1 % (0-5); Hematocrit 37.2 % (37-47); Lymphocyte # 0.95 X10^3/ul (4.0); Lymphocyte % 14.2 % (19-41); Mean Corp Hgb Conc 32.3 g/gl (32-36); Mean Corpuscular Hgb 28.5 pg (27.0-32.0); Mean Corpuscular Volume 88.4 fL (81-99); Mean Platelet Vol. 10.5 fl (6.2-12.0); Monocyte# 0.74 X10^3/uL; Monocyte% 11.1 % (0-10); Neutrophil # 4.95 X10^3/uL (2.7-7.7); Neutrophil % 74.4 % (47-70); Platelet Count 247 K/mm3 (150-450); RBC Distribution Width CV 13.9 % (11.6-14.6); RBC Distribution Width SD 44.1 fl (35.1-43.9); Red Blood Count 4.21 M/mm3 (4.2-5.4); White Blood Count 6.7 K/mm3 (4.4-11.0)
[2018-07-06 06:04] LABS: Anion Gap 11 (5-15); BUN 7 mg/dL (7-18); BUN/Creat Ratio 16.2 RATIO (10-20); Calcium,Total 8.6 mg/dL (8.5-10.1); Chloride 106 mmol/L (98-107); Creatinine, Serum 0.43 mg/dL (0.55-1.02); EST Glomerular Filtration Rate 151 mL/min (>60); Est Glom Filt Rate - Afr Amer 182 mL/min (>60); Glucose 99 mg/dL (74-106); Potassium 3.4 mmol/L (3.5-5.1); Sodium Level 143 mmol/L (136-145)
[2018-07-06 06:14] LABS: POSITIVE COUNT NO; POSITIVE DIFFERENTIAL NO; POSITIVE MORPHOLOGY NO
[2018-07-06] MEDS: Ipratropium/Albuterol Sulfate 3 ML AMPUL.NEB INHALATION ×2 (06:25→13:05)
[2018-07-06 06:41] LABS: Bedside Glucose 105 mg/dL (70-110)
[2018-07-06] MEDS: Metoprolol(XL)Succ 100 MG Tablet PO (09:36)
[2018-07-06] MEDS: Enoxaparin 40 MG/0.4 ML Syringe SC (09:36)
--- NOTE | 2018-07-06 11:01 | PCM.PN.HOSP ---
Patient Problems: Active and Suspected Problems SBO (small bowel obstruction) (Acute) Acute electrocardiogram changes (Acute) Subjective: Feels better, had a small BM and lots of flatus. No abdominal pain today Vitals/I&O's: Vital Signs Temp Pulse Resp BP Pulse Ox 98.3 F 87 16 153/76 H 96 07/06/18 10:53 07/06/18 10:53 07/06/18 10:53 07/06/18 10:53 07/06/18 10:53 Oxygen Delivery Method Room Air Weight: 176 lb 5.917 oz Body Mass Index (BMI) 28.4 Intake and Output for Last 24 Hours 07/04/18 07/05/18 07/06/18 23:59 23:59 23:59 Intake Total 3280 / 3280 1753 / 1753 Output Total 2100 / 2100 1200 / 1200 Balance 1180 / 1180 553 / 553 General: Alert, Oriented x3, Cooperative, No apparent distress HEENT: Atraumatic, EOMI, Normocephalic Oral: Moist Mucosa Neck: Supple, No JVD Lungs: Clear to auscultation, Normal air movement, No rhonchi, No wheeze, No rales Cardiovascular: Regular rate, Regular Rhythm, Normal S1, Normal S2, No murmurs Abdomen: Soft, Non Tender, Non-Distended, No Hepato-splenomegaly Extremities: No edema, Capillary Refill Less than 3 Seconds Skin: No rashes, No breakdown Neurological: Neuro grossly intact, Sensory exam intact to light touch and pain Psych/Mental Status: Normal Affect, Appropriate Laboratory Results 07/05/18 11:33: POC Glucose 104 07/05/18 18:09: POC Glucose 99 07/05/18 23:51: POC Glucose 130 H 07/06/18 05:25: WBC 6.7, RBC 4.21, Hgb 12.0, Hct 37.2, MCV 88.4, MCH 28.5, MCHC 32.3, RDW 13.9, RDW Differential 44.1 H, Plt Count 247, MPV 10.5, Immature Gran % (Auto) 0.100, Neut % (Auto) 74.4 H, Lymph % (Auto) 14.2 L, [place] % (Auto) 11.1 H, Eos % (Auto) 0.1, Baso % (Auto) 0.1, Absolute Neuts (auto) 5.0, Absolute Lymphs (auto) 0.95, Total Counted Not Reportable 07/06/18 05:25: Sodium 143, Potassium 3.4 L, Chloride 106, Carbon Dioxide 26.0, Anion Gap 11, BUN 7, Creatinine 0.43 L, Estim Creat Clear Calc 44.80, Est GFR (MDRD) Af Amer 182, Est GFR (MDRD) Non-Af 151, BUN/Creatinine Ratio 16.2, Glucose 99, Calcium 8.6 07/06/18 06:32: POC Glucose 105 Current Medications Albuterol Sulfate (Ventolin Aerosols) 2.5 mg INHALATION Q2H PRN PRN PRN Reason: dyspnea, wheezing Albuterol/Ipratropium (Duoneb) 3 ml INHALATION Q6HWA.RT [facility] Last Admin: 07/06/18 06:25 Dose: 3 ml Enoxaparin Sodium (Lovenox) 40 mg SC DAILY@1000 JP Last Admin: 07/06/18 09:36 Dose: 40 mg Hydralazine HCl (Apresoline Iv) 10 mg IV Q4H PRN PRN PRN Reason: SBP > 160 Last Admin: 07/05/18 19:51 Dose: 10 mg Sodium Chloride () 1,000 mls @ 125 mls/hr IV .Q8H [facility] Last Admin: 07/06/18 03:28 Dose: 125 mls/hr Famotidine 20 mg/ Sodium (Chloride) 10 mls @ 300 mls/hr IV Q12 [facility] Last Admin: 07/06/18 09:36 Dose: 300 mls/hr Insulin Human Lispro (Humalog Kwikpen (Bkc)) 0 unit SC Q6 [facility]; Protocol Last Admin: 07/06/18 07:19 Dose: Not Given Magnesium Hydroxide (Milk Of Magnesia) 30 ml PO DAILY PRN PRN PRN Reason: Constipation Metoprolol Succinate (Toprol Xl (Beta Vitor)) 100 mg PO DAILY [facility] Last Admin: 07/06/18 09:36 Dose: 100 mg Morphine Sulfate () 2 - 4 mg IV Q4H PRN PRN PRN Reason: PAIN Last Admin: 07/05/18 20:06 Dose: 2 mg Morphine Sulfate () 2 - 4 mg IV Q4H PRN PRN PRN Reason: PAIN Ondansetron HCl (Zofran) 4 mg IV Q8H PRN PRN PRN Reason: NAUSEA/VOMITING Last Admin: 07/05/18 20:05 Dose: 4 mg Phenol/Menthol (Chloraseptic (Bkc)) 5 spray MM Q2H PRN PRN PRN Reason: SORE THROAT Promethazine HCl (Phenergan) 12.5 mg IV Q6H PRN PRN PRN Reason: NAUSEA/VOMITING Sodium Chloride () 5 - 30 ml IV UD PRN PRN Reason: SALINE FLUSH Last Admin: 07/05/18 03:05 Dose: 10 ml Medical Necessity - Tobacco Use Smoking Status: Never smoker Tobacco Use: Non-smoker Assessment/Plan All Active Problems SBO (small bowel obstruction) (Acute) Acute electrocardiogram changes (Acute) 1. SBO from a prior omentectomy 39 years ago/Hypokalemia - CT consistent with SBO - Clamp NGT today and start clears - IVF@100 - Pepcid - replace KCl 2. T wave inversion in the inferior and anteriolateral leads/HTN/HLD -She denies chest pain and states that she has never had a heart attack - Not new changes - Troponin is negative x4 - Echo normal - Restart her meds if she tolerates clears today 3. DM2 - Hold home regime - SSI and monitor 4. Chronic asthma - Duoneb and albuterol nebs PRN wheeze DVT: SCD/Lovenox Diet: Clears Code Visit Inpatient E&M: 69266 Subs Hosp L2
--- NOTE | 2018-07-06 11:04 | PN_ITS ---
Patient Problems: Active and Suspected Problems SBO (small bowel obstruction) (Acute) Acute electrocardiogram changes (Acute) Subjective: Feels better, had a small BM and lots of flatus. No abdominal pain today Vitals/I&O's: Vital Signs Temp Pulse Resp BP Pulse Ox 98.3 F 87 16 153/76 H 96 07/06/18 10:53 07/06/18 10:53 07/06/18 10:53 07/06/18 10:53 07/06/18 10:53 Oxygen Delivery Method Room Air Weight: 176 lb 5.917 oz Body Mass Index (BMI) 28.4 Intake and Output for Last 24 Hours 07/04/18 07/05/18 07/06/18 23:59 23:59 23:59 Intake Total 3280 / 3280 1753 / 1753 Output Total 2100 / 2100 1200 / 1200 Balance 1180 / 1180 553 / 553 General: Alert, Oriented x3, Cooperative, No apparent distress HEENT: Atraumatic, EOMI, Normocephalic Oral: Moist Mucosa Neck: Supple, No JVD Lungs: Clear to auscultation, Normal air movement, No rhonchi, No wheeze, No rales Cardiovascular: Regular rate, Regular Rhythm, Normal S1, Normal S2, No murmurs Abdomen: Soft, Non Tender, Non-Distended, No Hepato-splenomegaly Extremities: No edema, Capillary Refill Less than 3 Seconds Skin: No rashes, No breakdown Neurological: Neuro grossly intact, Sensory exam intact to light touch and pain Psych/Mental Status: Normal Affect, Appropriate Laboratory Results 07/05/18 11:33: POC Glucose 104 07/05/18 18:09: POC Glucose 99 07/05/18 23:51: POC Glucose 130 H 07/06/18 05:25: WBC 6.7, RBC 4.21, Hgb 12.0, Hct 37.2, MCV 88.4, MCH 28.5, MCHC 32.3, RDW 13.9, RDW Differential 44.1 H, Plt Count 247, MPV 10.5, Immature Gran % (Auto) 0.100, Neut % (Auto) 74.4 H, Lymph % (Auto) 14.2 L, [place] % (Auto) 11.1 H, Eos % (Auto) 0.1, Baso % (Auto) 0.1, Absolute Neuts (auto) 5.0, Absolute Lymphs (auto) 0.95, Total Counted Not Reportable 07/06/18 05:25: Sodium 143, Potassium 3.4 L, Chloride 106, Carbon Dioxide 26.0, Anion Gap 11, BUN 7, Creatinine 0.43 L, Estim Creat Clear Calc 44.80, Est GFR (MDRD) Af Amer 182, Est GFR (MDRD) Non-Af 151, BUN/Creatinine Ratio 16.2, Glucose 99, Calcium 8.6 07/06/18 06:32: POC Glucose 105 Current Medications Albuterol Sulfate (Ventolin Aerosols) 2.5 mg INHALATION Q2H PRN PRN PRN Reason: dyspnea, wheezing Albuterol/Ipratropium (Duoneb) 3 ml INHALATION Q6HWA.RT [facility] Last Admin: 07/06/18 06:25 Dose: 3 ml Enoxaparin Sodium (Lovenox) 40 mg SC DAILY@1000 [facility] Last Admin: 07/06/18 09:36 Dose: 40 mg Hydralazine HCl (Apresoline Iv) 10 mg IV Q4H PRN PRN PRN Reason: SBP > 160 Last Admin: 07/05/18 19:51 Dose: 10 mg Sodium Chloride () 1,000 mls @ 125 mls/hr IV .Q8H [facility] Last Admin: 07/06/18 03:28 Dose: 125 mls/hr Famotidine 20 mg/ Sodium (Chloride) 10 mls @ 300 mls/hr IV Q12 [facility] Last Admin: 07/06/18 09:36 Dose: 300 mls/hr Insulin Human Lispro (Humalog Kwikpen (Bkc)) 0 unit SC Q6 [facility]; Protocol Last Admin: 07/06/18 07:19 Dose: Not Given Magnesium Hydroxide (Milk Of Magnesia) 30 ml PO DAILY PRN PRN PRN Reason: Constipation Metoprolol Succinate (Toprol Xl (Beta Vitor)) 100 mg PO DAILY [facility] Last Admin: 07/06/18 09:36 Dose: 100 mg Morphine Sulfate () 2 - 4 mg IV Q4H PRN PRN PRN Reason: PAIN Last Admin: 07/05/18 20:06 Dose: 2 mg Morphine Sulfate () 2 - 4 mg IV Q4H PRN PRN PRN Reason: PAIN Ondansetron HCl (Zofran) 4 mg IV Q8H PRN PRN PRN Reason: NAUSEA/VOMITING Last Admin: 07/05/18 20:05 Dose: 4 mg Phenol/Menthol (Chloraseptic (Bkc)) 5 spray MM Q2H PRN PRN PRN Reason: SORE THROAT Promethazine HCl (Phenergan) 12.5 mg IV Q6H PRN PRN PRN Reason: NAUSEA/VOMITING Sodium Chloride () 5 - 30 ml IV UD PRN PRN Reason: SALINE FLUSH Last Admin: 07/05/18 03:05 Dose: 10 ml Medical Necessity - Tobacco Use Smoking Status: Never smoker Tobacco Use: Non-smoker Assessment/Plan All Active Problems SBO (small bowel obstruction) (Acute) Acute electrocardiogram changes (Acute) 1. SBO from a prior omentectomy 39 years ago/Hypokalemia - CT consistent with SBO - Clamp NGT today and start clears - IVF@100 - Pepcid - replace KCl 2. T wave inversion in the inferior and anteriolateral leads/HTN/HLD -She denies chest pain and states that she has never had a heart attack - Not new changes - Troponin is negative x4 - Echo normal - Restart her meds if she tolerates clears today 3. DM2 - Hold home regime - SSI and monitor 4. Chronic asthma - Duoneb and albuterol nebs PRN wheeze DVT: SCD/Lovenox Diet: Clears Code Visit Inpatient E&M: 26380 Subs Hosp L2
--- NOTE | 2018-07-06 11:25 | PN.SURG_ITS ---
Patient Problems: Active and Suspected Problems SBO (small bowel obstruction) (Acute) Acute electrocardiogram changes (Acute) Subjective: ambulating well has passed small amounts of flatus no bowel movement - Physical Exam General: Alert, Oriented x3 Oral: Moist Mucosa Neck: Supple Lungs: Normal air movement Abdomen: Soft, Non Tender Vital Signs Temp Pulse Resp BP Pulse Ox 98.3 F 87 16 153/76 H 96 07/06/18 10:53 07/06/18 10:53 07/06/18 10:53 07/06/18 10:53 07/06/18 10:53 Oxygen Delivery Method Room Air Weight: 80 kg Body Mass Index (BMI) 28.4 Intake and Output for Last 24 Hours 07/04/18 07/05/18 07/06/18 23:59 23:59 23:59 Intake Total 3280 / 3280 1753 / 1753 Output Total 2100 / 2100 1200 / 1200 Balance 1180 / 1180 553 / 553 Laboratory Tests Past 24 Hrs 07/06/18 07/06/18 05:25 05:25 WBC 6.7 RBC 4.21 Hgb 12.0 Hct 37.2 MCV 88.4 MCH 28.5 MCHC 32.3 RDW 13.9 RDW Differential 44.1 H Plt Count 247 MPV 10.5 Immature Gran % (Auto) 0.100 Neut % (Auto) 74.4 H Lymph % (Auto) 14.2 L [place] % (Auto) 11.1 H Eos % (Auto) 0.1 Baso % (Auto) 0.1 Absolute Neuts (auto) 5.0 Absolute Lymphs (auto) 0.95 Total Counted Not Reportable Sodium 143 Potassium 3.4 L Chloride 106 Carbon Dioxide 26.0 Anion Gap 11 BUN 7 Creatinine 0.43 L Estim Creat Clear Calc 44.80 Est GFR (MDRD) Af Amer 182 Est GFR (MDRD) Non-Af 151 BUN/Creatinine Ratio 16.2 Glucose 99 Calcium 8.6 POC Glucose 07/06/18 07/05/18 07/05/18 06:32 23:51 18:09 POC Glucose 105 130 H 99 07/05/18 11:33 POC Glucose 104 Medical Necessity - Tobacco Use Smoking Status: Never smoker Tobacco Use: Non-smoker Assessment/Plan All Active Problems SBO (small bowel obstruction) (Acute) Acute electrocardiogram changes (Acute) Impression: partial small bowel obstruction - resolving Plan: encourage ambulation continue observation NG tube clamped, if tolerates will d/c tomorrow
[2018-07-06 11:41] LABS: Bedside Glucose 103 mg/dL (70-110)
[2018-07-06 17:30] LABS: Bedside Glucose 95 mg/dL (70-110)
[2018-07-06] MEDS: hydrALAZINE 20 MG/ML Vial 10 MG IV (20:04)
[2018-07-07] VITALS (14 sets, daily range): BP systolic 148–157; BP diastolic 69–90; PULSE 76–93; RESP 16–18; TEMP 36.6–37.2; O2SAT 96–98
[2018-07-07 00:30] LABS: Bedside Glucose 105 mg/dL (70-110)
[2018-07-07] MEDS: 0.9% Normal Saline 1,000 ML 125 ML IV ×3 (04:07→20:35)
[2018-07-07 06:36] LABS: Bedside Glucose 100 mg/dL (70-110)
[2018-07-07] MEDS: Ipratropium/Albuterol Sulfate 3 ML AMPUL.NEB INHALATION ×2 (06:42→14:10)
[2018-07-07 08:09] LABS: Anion Gap 13 (5-15); BUN 8 mg/dL (7-18); BUN/Creat Ratio 20.7 RATIO (10-20); Calcium,Total 8.5 mg/dL (8.5-10.1); Chloride 102 mmol/L (98-107); Creatinine, Serum 0.39 mg/dL (0.55-1.02); EST Glomerular Filtration Rate 172 mL/min (>60); Est Glom Filt Rate - Afr Amer 208 mL/min (>60); Glucose 86 mg/dL (74-106); Magnesium 1.9 mg/dL (1.6-2.6); Potassium 3.4 mmol/L (3.5-5.1); Sodium Level 139 mmol/L (136-145)
[2018-07-07] MEDS: Enoxaparin 40 MG/0.4 ML Syringe SC (09:19)
[2018-07-07] MEDS: Metoprolol(XL)Succ 100 MG Tablet PO (09:19)
--- NOTE | 2018-07-07 09:54 | PN_ITS ---
Patient Problems: Active and Suspected Problems SBO (small bowel obstruction) (Acute) Acute electrocardiogram changes (Acute) Subjective: Feels better, did not sleep well because of diarrhea. No emesis or nausea. Vitals/I&O's: Vital Signs Temp Pulse Resp BP Pulse Ox 98.9 F 89 18 157/90 H 96 07/07/18 02:18 07/07/18 09:19 07/07/18 06:42 07/07/18 02:18 07/07/18 06:42 Oxygen Delivery Method Room Air Weight: 176 lb 5.917 oz Body Mass Index (BMI) 28.4 Intake and Output for Last 24 Hours 07/05/18 07/06/18 07/07/18 23:59 23:59 23:59 Intake Total 3280 / 3280 3583 / 3583 1260 / 1260 Output Total 2100 / 2100 1600 / 1600 1250 / 1250 Balance 1180 / 1180 1982 General: Alert, Oriented x3, Cooperative, No apparent distress HEENT: Atraumatic, EOMI, Normocephalic Oral: Moist Mucosa Neck: Supple, No JVD Lungs: Clear to auscultation, Normal air movement, No rhonchi, No wheeze, No rales Cardiovascular: Regular rate, Regular Rhythm, Normal S1, Normal S2, No murmurs Abdomen: Soft, Non Tender, Non-Distended, No Hepato-splenomegaly Extremities: No edema, Capillary Refill Less than 3 Seconds Skin: No rashes, No breakdown Neurological: Neuro grossly intact, Sensory exam intact to light touch and pain Psych/Mental Status: Normal Affect, Appropriate Laboratory Results 07/06/18 11:33: POC Glucose 103 07/06/18 17:24: POC Glucose 95 07/07/18 00:21: POC Glucose 105 07/07/18 06:26: POC Glucose 100 07/07/18 06:35: Sodium 139, Potassium 3.4 L, Chloride 102, Carbon Dioxide 24.0, Anion Gap 13, BUN 8, Creatinine 0.39 L, Estim Creat Clear Calc 44.80, Est GFR (MDRD) Af Amer 208, Est GFR (MDRD) Non-Af 172, BUN/Creatinine Ratio 20.7 H, Glucose 86, Calcium 8.5, Magnesium 1.9 Current Medications Albuterol Sulfate (Ventolin Aerosols) 2.5 mg INHALATION Q2H PRN PRN PRN Reason: dyspnea, wheezing Albuterol/Ipratropium (Duoneb) 3 ml INHALATION Q6HWA.RT [facility] Last Admin: 07/07/18 06:42 Dose: 3 ml Enoxaparin Sodium (Lovenox) 40 mg SC DAILY@1000 JP Last Admin: 07/07/18 09:19 Dose: 40 mg Hydralazine HCl (Apresoline Iv) 10 mg IV Q4H PRN PRN PRN Reason: SBP > 160 Last Admin: 07/06/18 20:04 Dose: 10 mg Sodium Chloride () 1,000 mls @ 125 mls/hr IV .Q8H JP Last Admin: 07/07/18 04:07 Dose: 125 mls/hr Famotidine 20 mg/ Sodium (Chloride) 10 mls @ 300 mls/hr IV Q12 [facility] Last Admin: 07/07/18 09:19 Dose: 300 mls/hr Insulin Human Lispro (Humalog Kwikpen (Bkc)) 0 unit SC Q6 JP; Protocol Last Admin: 07/07/18 06:39 Dose: Not Given Magnesium Hydroxide (Milk Of Magnesia) 30 ml PO DAILY PRN PRN PRN Reason: Constipation Metoprolol Succinate (Toprol Xl (Beta Vitor)) 100 mg PO DAILY [facility] Last Admin: 07/07/18 09:19 Dose: 100 mg Morphine Sulfate () 2 - 4 mg IV Q4H PRN PRN PRN Reason: PAIN Last Admin: 07/05/18 20:06 Dose: 2 mg Morphine Sulfate () 2 - 4 mg IV Q4H PRN PRN PRN Reason: PAIN Ondansetron HCl (Zofran) 4 mg IV Q8H PRN PRN PRN Reason: NAUSEA/VOMITING Last Admin: 07/05/18 20:05 Dose: 4 mg Phenol/Menthol (Chloraseptic (Bkc)) 5 spray MM Q2H PRN PRN PRN Reason: SORE THROAT Promethazine HCl (Phenergan) 12.5 mg IV Q6H PRN PRN PRN Reason: NAUSEA/VOMITING Sodium Chloride () 5 - 30 ml IV UD PRN PRN Reason: SALINE FLUSH Last Admin: 07/05/18 03:05 Dose: 10 ml Medical Necessity - Tobacco Use Smoking Status: Never smoker Tobacco Use: Non-smoker Assessment/Plan All Active Problems SBO (small bowel obstruction) (Acute) Acute electrocardiogram changes (Acute) 1. SBO from a prior omentectomy 39 years ago/Hypokalemia - CT consistent with SBO - DC NGT and start full liquid diet - IVF@125 - Pepcid - replace KCl 2. T wave inversion in the inferior and anteriolateral leads/HTN/HLD -She denies chest pain and states that she has never had a heart attack - Not new changes - Troponin is negative x4 - Echo normal 3. DM2 - Hold home regime - SSI and monitor 4. Chronic asthma - Duoneb and albuterol nebs PRN wheeze - Restart home inhalers DVT: SCD/Lovenox Diet: Fulls Code Visit Inpatient E&M: 09668 Subs Hosp L2
--- NOTE | 2018-07-07 10:29 | PCM.PN.SRG ---
Patient Problems: Active and Suspected Problems SBO (small bowel obstruction) (Acute) Acute electrocardiogram changes (Acute) Subjective: Patient feeling improved, now with diarrhea, passing flatus - Physical Exam General: Alert, Oriented x3 Oral: Moist Mucosa Abdomen: Bowel Sounds Present, Soft Vital Signs Temp Pulse Resp BP Pulse Ox 98.9 F 89 18 157/90 H 96 07/07/18 02:18 07/07/18 09:19 07/07/18 06:42 07/07/18 02:18 07/07/18 06:42 Oxygen Delivery Method Room Air Weight: 80 kg Body Mass Index (BMI) 28.4 Intake and Output for Last 24 Hours 07/05/18 07/06/18 07/07/18 23:59 23:59 23:59 Intake Total 3280 / 3280 3583 / 3583 1260 / 1260 Output Total 2100 / 2100 1600 / 1600 1250 / 1250 Balance 1180 / 1180 1982 Laboratory Tests Past 24 Hrs 07/07/18 06:35 Sodium 139 Potassium 3.4 L Chloride 102 Carbon Dioxide 24.0 Anion Gap 13 BUN 8 Creatinine 0.39 L Estim Creat Clear Calc 44.80 Est GFR (MDRD) Af Amer 208 Est GFR (MDRD) Non-Af 172 BUN/Creatinine Ratio 20.7 H Glucose 86 Calcium 8.5 Magnesium 1.9 POC Glucose 07/07/18 07/07/18 07/06/18 06:26 00:21 17:24 POC Glucose 100 105 95 07/06/18 11:33 POC Glucose 103 Medical Necessity - Tobacco Use Smoking Status: Never smoker Tobacco Use: Non-smoker Assessment/Plan All Active Problems SBO (small bowel obstruction) (Acute) Acute electrocardiogram changes (Acute) Impression: partial small bowel obstruction - resolved Plan: Can discharge to home from a surgical standpoint, I will sign off patient as no further surgical intervention required - small bowel obstruction has resolved I have recommended that patient follow up in the surgery clinic with Dr. Sultana for consideration of SBFT - patient understands
--- NOTE | 2018-07-07 10:32 | DCINST_ITS ---
Discharge Diet: No Restrictions Discharge Activity: Return to Normal Activity, May not drive while taking narcotic pain medications. Allergies/Adverse Reactions: Allergies Penicillins [PCN] Allergy (Verified 07/04/18 19:44) Rash albuterol [From Ventolin HFA] Adverse Reaction (Verified 07/04/18 19:44) Other Medications to take at Discharge Albuterol IH (ProAir) [Proair Hfa] 2 puff INHALATION Q4H PRN PRN 07/04/18 Aspirin E.C. [Ecotrin] 325 mg PO DAILY 07/04/18 Atorvastatin Calcium [Lipitor] 40 mg PO DAILY 07/04/18 Budesonide/Formoterol 160/4.5 [Symbicort 160/4.5 Mcg Inhaler (SP)] 2 puff INHALATION BID PRN 07/04/18 Felodipine [Plendil] 10 mg PO DAILY 07/04/18 Hydrochlorothiazide [Hctz] 25 mg PO DAILY 07/04/18 Metoprolol Succinate 100 mg PO DAILY 07/04/18 Potassium Chloride 10 meq PO DAILY 07/04/18 Ramipril 10 mg PO DAILY 07/04/18 Primary Care Physician: Meryl Mott MD [Primary Care Provider] - Test Results: Test results from this visit will be discussed in further detail at your follow- up appointment, if applicable. Please Follow Up With: Maxim Sultana MD - call When: to be seen in 1-2 weeks after discharge, please call for date and time
[2018-07-07] MEDS: Atorvastatin Calcium 40 MG Tablet PO (11:03)
[2018-07-07] MEDS: amLODIPine 10 MG Tablet PO (11:03)
[2018-07-07] MEDS: hydroCHLOROthiazide 25 MG Tablet PO (11:03)
[2018-07-07] MEDS: Ramipril 10 MG Capsule PO (11:03)
[2018-07-07 17:36] LABS: Bedside Glucose 118 mg/dL (70-110)
[2018-07-07] MEDS: Famotidine 20 MG Tablet PO (21:35)
[2018-07-07 22:56] LABS: Bedside Glucose 111 mg/dL (70-110)
[2018-07-08] VITALS (13 sets, daily range): BP systolic 134–163; BP diastolic 70–101; PULSE 77–107; RESP 16–18; TEMP 36.7–37.6; O2SAT 95–98
[2018-07-08] MEDS: 0.9% Normal Saline 1,000 ML 125 ML IV ×3 (04:52→21:27)
[2018-07-08 06:46] LABS: Anion Gap 12 (5-15); BUN 10 mg/dL (7-18); BUN/Creat Ratio 25.5 RATIO (10-20); Calcium,Total 8.8 mg/dL (8.5-10.1); Chloride 103 mmol/L (98-107); Creatinine, Serum 0.39 mg/dL (0.55-1.02); EST Glomerular Filtration Rate 169 mL/min (>60); Est Glom Filt Rate - Afr Amer 204 mL/min (>60); Glucose 102 mg/dL (74-106); Potassium 3.5 mmol/L (3.5-5.1); Sodium Level 138 mmol/L (136-145)
[2018-07-08 06:51] LABS: Bedside Glucose 98 mg/dL (70-110)
[2018-07-08] MEDS: Budesonide Respules 0.5 MG/2 ML AMPUL.NEB. INHALATION ×2 (07:15→19:35)
--- NOTE | 2018-07-08 07:39 | PCM.PN.SRG ---
Patient Problems: Active and Suspected Problems SBO (small bowel obstruction) (Acute) Acute electrocardiogram changes (Acute) Subjective: Patient states that she is passing large amounts of flatus, also with diarrhea - Physical Exam General: Alert, Oriented x3 Oral: Moist Mucosa Abdomen: Bowel Sounds Present, Soft Vital Signs Temp Pulse Resp BP Pulse Ox 98.7 F 85 16 143/75 H 96 07/08/18 04:55 07/08/18 04:55 07/08/18 04:55 07/08/18 04:55 07/08/18 04:55 Oxygen Delivery Method Room Air Weight: 80 kg Body Mass Index (BMI) 28.4 Intake and Output for Last 24 Hours 07/06/18 07/07/18 07/08/18 23:59 23:59 23:59 Intake Total 3583 / 3583 3209 / 3209 1564 / 1564 Output Total 1600 / 1600 1250 / 1250 Balance 1982 / 1982 1958 / 1958 1564 / 1564 Laboratory Tests Past 24 Hrs 07/07/18 07/08/18 06:35 05:54 Sodium 139 138 Potassium 3.4 L 3.5 Chloride 102 103 Carbon Dioxide 24.0 23.0 Anion Gap 13 12 BUN 8 10 Creatinine 0.39 L 0.39 L Estim Creat Clear Calc 44.80 44.80 Est GFR (MDRD) Af Amer 208 204 Est GFR (MDRD) Non-Af 172 169 BUN/Creatinine Ratio 20.7 H 25.5 H Glucose 86 102 Calcium 8.5 8.8 Magnesium 1.9 POC Glucose 07/08/18 07/07/18 07/07/18 06:46 21:33 16:43 POC Glucose 98 111 H 118 H Medical Necessity - Tobacco Use Smoking Status: Never smoker Tobacco Use: Non-smoker Assessment/Plan All Active Problems SBO (small bowel obstruction) (Acute) Acute electrocardiogram changes (Acute) Impression: partial small bowel obstruction - resolved, now with diarrhea Plan: Can discharge to home from a surgical standpoint I have recommended that patient follow up in the surgery clinic with Dr. Sultana for consideration of SBFT - patient understands
[2018-07-08] MEDS: Ramipril 10 MG Capsule PO (09:23)
[2018-07-08] MEDS: Enoxaparin 40 MG/0.4 ML Syringe SC (09:24)
[2018-07-08] MEDS: Atorvastatin Calcium 40 MG Tablet PO (09:24)
[2018-07-08] MEDS: Metoprolol(XL)Succ 100 MG Tablet PO (09:24)
[2018-07-08] MEDS: hydroCHLOROthiazide 25 MG Tablet PO (09:24)
[2018-07-08] MEDS: amLODIPine 10 MG Tablet PO (09:24)
[2018-07-08] MEDS: Famotidine 20 MG Tablet PO ×2 (09:24→21:28)
[2018-07-08 11:45] LABS: Bedside Glucose 108 mg/dL (70-110)
[2018-07-08] MEDS: 0.9% NaCl Peripheral Flush Adult/Peds IV (12:36)
[2018-07-08] MEDS: Ondansetron 4 MG/2 ML Vial IV ×2 (12:36→23:34)
--- NOTE | 2018-07-08 12:40 | NURSING ---
called to room by ASSOCIATE SALES MANAGER as pt had large emesis in trash cane. medicated with zofran. pt states she has had lots of belching all morning. states abd pain ok visible emesis on gown in yellow/green in color. liberal arts teacher assisting with personal care. encouraged pt to attempt to use emesis basin so can be measured. pt denies all further needs from this nurse. liberal arts teacher remains with pt.
--- NOTE | 2018-07-08 13:42 | PCM.PROGNOTE ---
Patient Problems: Active and Suspected Problems SBO (small bowel obstruction) (Acute) Acute electrocardiogram changes (Acute) Subjective: Chief complaint: Follow-up after admission for small bowel obstruction and EKG changes. Patient seen and examined. No acute events overnight. She has been complaining of watery profuse diarrhea and persistent belching. She denied significant abdominal pain but she reported heartburn. She is still distended. Her vital signs are stable. - Physical Exam General: Alert, Oriented x3, Cooperative, - - She is uncomfortable because of abdominal distention. HEENT: Atraumatic, PERRLA, EOMI, Normocephalic Oral: Moist Mucosa, No Gingival or Mucosal Lesions/ Ulcerations Neck: Supple, No JVD, Negative Carotid Bruits, Trachea Midline, Thyroid Normal Size and Texture Lungs: Clear to auscultation, No rhonchi, No wheeze, No rales, Diminished Cardiovascular: Regular rate, Regular Rhythm, Normal S1, Normal S2, PMI Normal Abdomen: Bowel Sounds Present, Soft, Non Tender, Hypoactive Bowel Sounds, Distended Extremities: No clubbing, No cyanosis, No edema Skin: No rashes, No breakdown Lymphatic: No Cervical, Supraclavicular, or Inguinal Adenopathy Neurological: Cranial nerves II-XII grossly intact, Motor Exam 5/5 strength throughout Psych/Mental Status: Normal Affect, Appropriate, Alert and oriented to time, place, person, mood and affect Vital Signs Temp Pulse Resp BP Pulse Ox 98.9 F 87 16 154/84 H 96 07/08/18 12:11 07/08/18 12:11 07/08/18 12:11 07/08/18 12:11 07/08/18 12:11 Oxygen Delivery Method Room Air Weight: 176 lb 5.917 oz Body Mass Index (BMI) 28.4 Intake and Output for Last 24 Hours 07/06/18 07/07/18 07/08/18 23:59 23:59 23:59 Intake Total 3583 / 3583 3209 / 3209 1564 / 1564 Output Total 1600 / 1600 1250 / 1250 Balance 1982 / 1958 1564 / 1564 Laboratory Tests Past 24 Hrs 07/08/18 05:54 Sodium 138 Potassium 3.5 Chloride 103 Carbon Dioxide 23.0 Anion Gap 12 BUN 10 Creatinine 0.39 L Estim Creat Clear Calc 44.80 Est GFR (MDRD) Af Amer 204 Est GFR (MDRD) Non-Af 169 BUN/Creatinine Ratio 25.5 H Glucose 102 Calcium 8.8 POC Glucose 07/08/18 07/08/18 07/07/18 11:41 06:46 21:33 POC Glucose 108 98 111 H 07/07/18 16:43 POC Glucose 118 H Medical Necessity - Tobacco Use Smoking Status: Never smoker Tobacco Use: Non-smoker Assessment/Plan All Active Problems SBO (small bowel obstruction) (Acute) Acute electrocardiogram changes (Acute) This is a 78 years old female patient presented to the emergency room because of abdominal pain with nausea and vomiting and she was found to have small bowel obstruction also found to have EKG changes without symptoms of chest pain shortness of breath. #1 small bowel obstruction: She is still having diarrhea and abdominal distention. She has no more significant abdominal pain. NG tube taken out. Her vital signs are stable. General surgery on the case. She is on full liquid diet. She is on IV fluids, IV antiemetics and IV morphine as needed for pain. Plan: Continue same treatment, repeat CBC and BMP tomorrow morning, repeat KUB tomorrow morning. #2 EKG changes: Without chest pain or shortness of breath. Her troponin is negative x3. 2D echocardiogram revealed ejection fraction of 75%, stage I diastolic dysfunction and mild aortic stenosis. ACS ruled out. #3 type 2 diabetes mellitus: Blood sugar stable. Continue sliding scale. #4 hypertension: Blood pressure stable, continue Norvasc and as needed IV hydralazine as well as HCTZ and metoprolol. #5 hyperlipidemia: Continue statins. #6 chronic asthma: Clinically stable, pulse ox is maintained on room air. Continue albuterol as needed and Pulmicort twice daily. #7 DVT prophylaxis: Subcu Lovenox. This note was generated with [employer] dictation software. It may contain incorrect words, spelling, and punctuation that were not noted in checking the note before signing. Code Visit Inpatient E&M: 03614 Subs Hosp L2
[2018-07-08] MEDS: Glucerna Shake 120 ML LIQUID PO ×2 (16:35→19:00)
[2018-07-08 16:45] LABS: Bedside Glucose 102 mg/dL (70-110)
[2018-07-08] MEDS: Ipratropium/Albuterol Sulfate 3 ML AMPUL.NEB INHALATION (19:34)
--- NOTE | 2018-07-08 21:04 | NURSING ---
pt drank the glucerna and now is starting to have bloating and discomfort again. pt ambulating in the [place] to relieve pressure.
[2018-07-08 21:45] LABS: Bedside Glucose 117 mg/dL (70-110)
--- NOTE | 2018-07-08 23:34 | NURSING ---
pt has been feeling bad ever since the glucerna this evening, pt feeling bloated and very gassy and is now spitting up bile and is very unconfortable, prn zofran given,
[2018-07-09] VITALS (25 sets, daily range): BP systolic 113–154; BP diastolic 59–86; PULSE 79–118; RESP 16–24; TEMP 36.6–38.1; O2SAT 88–100; BMI 28.3; BMI 28.4
--- NOTE | 2018-07-09 01:51 | NURSING ---
pt still pretty miserable, spitting up and nauseated, prn phenergan given
[2018-07-09] MEDS: proMETHazine 25 MG/ML Syringe 12.5 MG IV (01:52)
--- NOTE | 2018-07-09 04:34 | NURSING ---
pt was sleeping and woke vomitting, 700+ out of brown liquid. xray waiting till she got cleaned up and xray was completed, will get a stat reading.
--- NOTE | 2018-07-09 05:00 | RAD_ITS ---
STUDY: X-RAY - ABDOMEN/PELVIS REASON FOR EXAM: Female, 78 years old. Vomiting TECHNIQUE: Supine, upright, and left lateral decubitus views. COMPARISON: None. FINDINGS: Normal visualized lung bases. Enteric tube has been removed. Progressing distention of small bowel loops, now measuring up to 4.2 cm in diameter. Multiple acute air-fluid levels. There is no demonstrated free abdominal air. The visualized liver, spleen and kidneys are grossly normal in size and morphology. Normal soft tissue structures. There are diffuse degenerative changes of the visualized lumbar spine. RAD/Abd Inc Decub and/or Erect IMPRESSION: Progressing obstructive bowel gas pattern. Electronically Signed: Zi Willis MD at 5:08 EDT Tel , Service support ,
[2018-07-09] MEDS: 0.9% Normal Saline 1,000 ML 125 ML IV ×2 (05:10→17:40)
--- NOTE | 2018-07-09 06:15 | RAD_ITS ---
STUDY: X-RAY - ABDOMEN/PELVIS REASON FOR EXAM: Female, 78 years old. NG tube placement TECHNIQUE: Single AP view of the abdomen / pelvis. COMPARISON: 07/09/2018 FINDINGS: Enteric tube tip in the distal stomach or proximal duodenum. Stable obstructive bowel gas pattern. There is no demonstrated free abdominal air. The visualized liver, spleen and kidneys are grossly normal in size and morphology. Normal soft tissue structures. Normal visualized osseous structures. RAD/Abdomen Single View IMPRESSION: Enteric tube tip in the distal stomach or proximal duodenum. Stable obstructive bowel gas pattern. Electronically Signed: Zi Willis MD at 6:56 EDT Tel , Service support ,
[2018-07-09 06:25] LABS: Absolute Lymphocyte Count 0.49 X10^3/ul (0.83-4.51); Absolute Neutrophil Count 2.6 X10^3/uL (2.0-7.7); Eosinophil# 0.01 X10^3/uL; Eosinophils% 0.3 % (0-5); Hematocrit 35.8 % (37-47); Hemoglobin 11.8 g/dl (12.0-15.0); Lymphocyte # 0.49 X10^3/ul (4.0); Lymphocyte % 12.7 % (19-41); Mean Corpuscular Hgb 28.6 pg (27.0-32.0); Mean Corpuscular Volume 86.7 fL (81-99); Mean Platelet Vol. 10.9 fl (6.2-12.0); Monocyte# 0.71 X10^3/uL; Monocyte% 18.4 % (0-10); Neutrophil # 2.64 X10^3/uL (2.7-7.7); Neutrophil % 68.3 % (47-70); Platelet Count 219 K/mm3 (150-450); RBC Distribution Width CV 13.7 % (11.6-14.6); RBC Distribution Width SD 42.3 fl (35.1-43.9); Red Blood Count 4.13 M/mm3 (4.2-5.4); White Blood Count 3.9 K/mm3 (4.4-11.0)
[2018-07-09] MEDS: Morphine 4 MG/ML Syringe IV ×2 (06:25→21:59)
[2018-07-09 06:26] LABS: Differential Indicated SCAN CRITERIA MET; POSITIVE COUNT NO; POSITIVE DIFFERENTIAL YES; POSITIVE MORPHOLOGY YES
[2018-07-09 06:41] LABS: Anion Gap 15 (5-15); BUN 15 mg/dL (7-18); BUN/Creat Ratio 31.3 RATIO (10-20); Calcium,Total 8.7 mg/dL (8.5-10.1); Chloride 103 mmol/L (98-107); Creatinine, Serum 0.48 mg/dL (0.55-1.02); EST Glomerular Filtration Rate 134 mL/min (>60); Est Glom Filt Rate - Afr Amer 162 mL/min (>60); Glucose 110 mg/dL (74-106); Potassium 3.1 mmol/L (3.5-5.1); Sodium Level 141 mmol/L (136-145)
[2018-07-09] MEDS: Ipratropium/Albuterol Sulfate 3 ML AMPUL.NEB INHALATION (06:57)
[2018-07-09] MEDS: Budesonide Respules 0.5 MG/2 ML AMPUL.NEB. INHALATION (06:57)
[2018-07-09 07:02] LABS: Differential Comment SCANNED
[2018-07-09] MEDS: Ondansetron 4 MG/2 ML Vial IV ×2 (07:04→21:59)
[2018-07-09 07:36] LABS: Bedside Glucose 120 mg/dL (70-110)
[2018-07-09 07:47] LABS: Magnesium 1.9 mg/dL (1.6-2.6); Phosphorus 3.1 mg/dL (2.5-4.9)
[2018-07-09 07:48] LABS: ALB/GLOB Ratio 0.9 RATIO (0.9-2.4); AST(SGOT) 16 U/L (15-37); Alanine Aminotransfer ALT/SGPT 18 U/L (13-56); Alkaline Phosphatase 49 U/L (45-117); Globulin 3.4 g/dL (2.2-4.2); Protein, Total 6.4 g/dL (6.4-8.2)
[2018-07-09] MEDS: Metoprolol Tartrate 5 MG/5 ML Vial IV ×2 (08:51→17:40)
--- NOTE | 2018-07-09 08:54 | PCM.PROGNOTE ---
Patient Problems: Active and Suspected Problems SBO (small bowel obstruction) (Acute) Acute electrocardiogram changes (Acute) Subjective: Chief complaint: Follow-up after admission for small bowel obstruction. Patient seen and examined. Overnight, she has been throwing up. She is still complaining of watery stool. Abdominal distention still there. Denied nausea or vomiting. Denies fever chills. Denies chest pain or shortness of breath. She is slightly tachycardic, other vital signs are stable. - Physical Exam General: Alert, Oriented x3, Cooperative, - - She is in mild discomfort because of abdominal pain. HEENT: Atraumatic, PERRLA, EOMI, Normocephalic Oral: Moist Mucosa, No Gingival or Mucosal Lesions/ Ulcerations Neck: Supple, No JVD, Negative Carotid Bruits, Trachea Midline, Thyroid Normal Size and Texture Lungs: Clear to auscultation, No rhonchi, No wheeze, No rales, Diminished Cardiovascular: Regular rate, Regular Rhythm, Normal S1, Normal S2, PMI Normal, Tachycardic Abdomen: Soft, Non Tender, Hypoactive Bowel Sounds, Distended Extremities: No clubbing, No cyanosis, No edema Skin: No rashes, No breakdown Lymphatic: No Cervical, Supraclavicular, or Inguinal Adenopathy Neurological: Cranial nerves II-XII grossly intact, Neuro grossly intact Psych/Mental Status: Normal Affect, Appropriate, Alert and oriented to time, place, person, mood and affect Vital Signs Temp Pulse Resp BP Pulse Ox 97.8 F 118 H 20 H 137/74 H 94 07/09/18 07:57 07/09/18 08:51 07/09/18 07:57 07/09/18 08:51 07/09/18 07:57 Oxygen Delivery Method Room Air Weight: 176 lb 5.917 oz Body Mass Index (BMI) 28.3 Intake and Output for Last 24 Hours 07/07/18 07/08/18 07/09/18 23:59 23:59 23:59 Intake Total 3209 / 3209 1564 / 1564 2240 / 2240 Output Total 1250 / 1250 1400 / 1400 Balance 195 / 195 1564 / 1564 840 / 840 Laboratory Tests Past 24 Hrs 07/09/18 07/09/18 07/09/18 05:30 05:30 05:30 WBC 3.9 L RBC 4.13 L Hgb 11.8 L Hct 35.8 L MCV 86.7 MCH 28.6 MCHC 33.0 RDW 13.7 RDW Differential 42.3 Plt Count 219 MPV 10.9 Immature Gran % (Auto) 0.300 Neut % (Auto) 68.3 Lymph % (Auto) 12.7 L [place] % (Auto) 18.4 H Eos % (Auto) 0.3 Baso % (Auto) 0.0 Absolute Neuts (auto) 2.6 Absolute Lymphs (auto) 0.49 L Total Counted Not Reportable Differential Comment SCANNED Sodium 141 Cancelled Potassium 3.1 L Cancelled Chloride 103 Cancelled Carbon Dioxide 23.0 Cancelled Anion Gap 15 Cancelled BUN 15 Cancelled Creatinine 0.48 L Cancelled Estim Creat Clear Calc 44.80 Cancelled Est GFR (MDRD) Af Amer 162 Cancelled Est GFR (MDRD) Non-Af 134 Cancelled BUN/Creatinine Ratio 31.3 H Cancelled Glucose 110 H Cancelled Calcium 8.7 Cancelled Phosphorus Magnesium Total Bilirubin 0.50 Cancelled AST 16 Cancelled ALT 18 Cancelled Alkaline Phosphatase 49 Cancelled Total Protein 6.4 Cancelled Albumin 3.0 L Cancelled Globulin 3.4 Cancelled Albumin/Globulin Ratio 0.9 Cancelled 07/09/18 05:30 WBC RBC Hgb Hct MCV MCH MCHC RDW RDW Differential Plt Count MPV Immature Gran % (Auto) Neut % (Auto) Lymph % (Auto) [place] % (Auto) Eos % (Auto) Baso % (Auto) Absolute Neuts (auto) Absolute Lymphs (auto) Total Counted Differential Comment Sodium Potassium Chloride Carbon Dioxide Anion Gap BUN Creatinine Estim Creat Clear Calc Est GFR (MDRD) Af Amer Est GFR (MDRD) Non-Af BUN/Creatinine Ratio Glucose Calcium Phosphorus 3.1 Magnesium 1.9 Total Bilirubin AST ALT Alkaline Phosphatase Total Protein Albumin Globulin Albumin/Globulin Ratio POC Glucose 07/09/18 07/08/18 07/08/18 07:02 21:32 16:38 POC Glucose 120 H 117 H 102 07/08/18 11:41 POC Glucose 108 Clinical Impression(s) from Imaging Studies. Abdomen X-Ray 07/09/18 05:00 IMPRESSION: Progressing obstructive bowel gas pattern. Electronically Signed: Zi Willis MD at 5:08 EDT Tel , Service support , KUB X-Ray 07/09/18 06:15 IMPRESSION: Enteric tube tip in the distal stomach or proximal duodenum. Stable obstructive bowel gas pattern. Electronically Signed: Zi Willis MD at 6:56 EDT Tel , Service support , Medical Necessity - Tobacco Use Smoking Status: Never smoker Tobacco Use: Non-smoker Assessment/Plan All Active Problems SBO (small bowel obstruction) (Acute) Acute electrocardiogram changes (Acute) This is a 78 years old female patient presented to the emergency room because of abdominal pain with nausea and vomiting and she was found to have small bowel obstruction also found to have EKG changes without symptoms of chest pain shortness of breath. #1 small bowel obstruction: Patient still symptomatic with abdominal distention and profuse diarrhea, had couple of vomiting episodes last night. Repeat x-ray abdomen revealed worsening bowel obstruction pattern. NG tube reinserted by general surgery. Apart from tachycardia, vital signs are stable. Routine blood work from today reviewed, revealed mild hypokalemia. She is on potassium replacement. LFT, magnesium and phosphorus are normal. Decision was made to take patient for laparoscopic laparotomy this morning. #2 EKG changes: Without chest pain or shortness of breath. Her troponin is negative x3. 2D echocardiogram revealed ejection fraction of 75%, stage I diastolic dysfunction and mild aortic stenosis. ACS ruled out. #3 type 2 diabetes mellitus: Blood sugar stable. Continue sliding scale. #4 hypertension: Blood pressure stable but she is tachycardic, continue Norvasc and as needed IV hydralazine, will change metoprolol to IV metoprolol 5 mg every 6 hours. #5 hyperlipidemia: Continue statins. #6 chronic asthma: Clinically stable, pulse ox is maintained on room air. Continue albuterol as needed and Pulmicort twice daily. #7 DVT prophylaxis: Subcu Lovenox. This note was generated with [employer] dictation software. It may contain incorrect words, spelling, and punctuation that were not noted in checking the note before signing. Code Visit Inpatient E&M: 87399 Subs Hosp L2
--- NOTE | 2018-07-09 08:59 | PN_ITS ---
Patient Problems: Active and Suspected Problems SBO (small bowel obstruction) (Acute) Acute electrocardiogram changes (Acute) Subjective: Chief complaint: Follow-up after admission for small bowel obstruction. Patient seen and examined. Overnight, she has been throwing up. She is still complaining of watery stool. Abdominal distention still there. Denied nausea or vomiting. Denies fever chills. Denies chest pain or shortness of breath. She is slightly tachycardic, other vital signs are stable. - Physical Exam General: Alert, Oriented x3, Cooperative, - - She is in mild discomfort because of abdominal pain. HEENT: Atraumatic, PERRLA, EOMI, Normocephalic Oral: Moist Mucosa, No Gingival or Mucosal Lesions/ Ulcerations Neck: Supple, No JVD, Negative Carotid Bruits, Trachea Midline, Thyroid Normal Size and Texture Lungs: Clear to auscultation, No rhonchi, No wheeze, No rales, Diminished Cardiovascular: Regular rate, Regular Rhythm, Normal S1, Normal S2, PMI Normal, Tachycardic Abdomen: Soft, Non Tender, Hypoactive Bowel Sounds, Distended Extremities: No clubbing, No cyanosis, No edema Skin: No rashes, No breakdown Lymphatic: No Cervical, Supraclavicular, or Inguinal Adenopathy Neurological: Cranial nerves II-XII grossly intact, Neuro grossly intact Psych/Mental Status: Normal Affect, Appropriate, Alert and oriented to time, place, person, mood and affect Vital Signs Temp Pulse Resp BP Pulse Ox 97.8 F 118 H 20 H 137/74 H 94 07/09/18 07:57 07/09/18 08:51 07/09/18 07:57 07/09/18 08:51 07/09/18 07:57 Oxygen Delivery Method Room Air Weight: 176 lb 5.917 oz Body Mass Index (BMI) 28.3 Intake and Output for Last 24 Hours 07/07/18 07/08/18 07/09/18 23:59 23:59 23:59 Intake Total 3209 / 3209 1564 / 1564 2240 / 2240 Output Total 1250 / 1250 1400 / 1400 Balance 195 / 195 1564 / 1564 840 / 840 Laboratory Tests Past 24 Hrs 07/09/18 07/09/18 07/09/18 05:30 05:30 05:30 WBC 3.9 L RBC 4.13 L Hgb 11.8 L Hct 35.8 L MCV 86.7 MCH 28.6 MCHC 33.0 RDW 13.7 RDW Differential 42.3 Plt Count 219 MPV 10.9 Immature Gran % (Auto) 0.300 Neut % (Auto) 68.3 Lymph % (Auto) 12.7 L Walker % (Auto) 18.4 H Eos % (Auto) 0.3 Baso % (Auto) 0.0 Absolute Neuts (auto) 2.6 Absolute Lymphs (auto) 0.49 L Total Counted Not Reportable Differential Comment SCANNED Sodium 141 Cancelled Potassium 3.1 L Cancelled Chloride 103 Cancelled Carbon Dioxide 23.0 Cancelled Anion Gap 15 Cancelled BUN 15 Cancelled Creatinine 0.48 L Cancelled Estim Creat Clear Calc 44.80 Cancelled Est GFR (MDRD) Af Amer 162 Cancelled Est GFR (MDRD) Non-Af 134 Cancelled BUN/Creatinine Ratio 31.3 H Cancelled Glucose 110 H Cancelled Calcium 8.7 Cancelled Phosphorus Magnesium Total Bilirubin 0.50 Cancelled AST 16 Cancelled ALT 18 Cancelled Alkaline Phosphatase 49 Cancelled Total Protein 6.4 Cancelled Albumin 3.0 L Cancelled Globulin 3.4 Cancelled Albumin/Globulin Ratio 0.9 Cancelled 07/09/18 05:30 WBC RBC Hgb Hct MCV MCH MCHC RDW RDW Differential Plt Count MPV Immature Gran % (Auto) Neut % (Auto) Lymph % (Auto) Walker % (Auto) Eos % (Auto) Baso % (Auto) Absolute Neuts (auto) Absolute Lymphs (auto) Total Counted Differential Comment Sodium Potassium Chloride Carbon Dioxide Anion Gap BUN Creatinine Estim Creat Clear Calc Est GFR (MDRD) Af Amer Est GFR (MDRD) Non-Af BUN/Creatinine Ratio Glucose Calcium Phosphorus 3.1 Magnesium 1.9 Total Bilirubin AST ALT Alkaline Phosphatase Total Protein Albumin Globulin Albumin/Globulin Ratio POC Glucose 07/09/18 07/08/18 07/08/18 07:02 21:32 16:38 POC Glucose 120 H 117 H 102 07/08/18 11:41 POC Glucose 108 Clinical Impression(s) from Imaging Studies. Abdomen X-Ray 07/09/18 05:00 IMPRESSION: Progressing obstructive bowel gas pattern. Electronically Signed: Zi Willis MD at 5:08 EDT Tel , Service support , KUB X-Ray 07/09/18 06:15 IMPRESSION: Enteric tube tip in the distal stomach or proximal duodenum. Stable obstructive bowel gas pattern. Electronically Signed: Zi Willis MD at 6:56 EDT Tel , Service support , Medical Necessity - Tobacco Use Smoking Status: Never smoker Tobacco Use: Non-smoker Assessment/Plan All Active Problems SBO (small bowel obstruction) (Acute) Acute electrocardiogram changes (Acute) This is a 78 years old female patient presented to the emergency room because of abdominal pain with nausea and vomiting and she was found to have small bowel obstruction also found to have EKG changes without symptoms of chest pain sh ortness of breath. #1 small bowel obstruction: Patient still symptomatic with abdominal distention and profuse diarrhea, had couple of vomiting episodes last night. Repeat x-ray abdomen revealed worsening bowel obstruction pattern. NG tube reinserted by general surgery. Apart from tachycardia, vital signs are stable. Routine blood work from today reviewed, revealed mild hypokalemia. She is on potassium replacement. LFT, magnesium and phosphorus are normal. Decision was made to take patient for laparoscopic laparotomy this morning. #2 EKG changes: Without chest pain or shortness of breath. Her troponin is negative x3. 2D echocardiogram revealed ejection fraction of 75%, stage I diastolic dysfunction and mild aortic stenosis. ACS ruled out. #3 type 2 diabetes mellitus: Blood sugar stable. Continue sliding scale. #4 hypertension: Blood pressure stable but she is tachycardic, continue Norvasc and as needed IV hydralazine, will change metoprolol to IV metoprolol 5 mg every 6 hours. #5 hyperlipidemia: Continue statins. #6 chronic asthma: Clinically stable, pulse ox is maintained on room air. Continue albuterol as needed and Pulmicort twice daily. #7 DVT prophylaxis: Subcu Lovenox. This note was generated with [employer] dictation software. It may contain incorrect words, spelling, and punctuation that were not noted in checking the note before signing. Code Visit Inpatient E&M: 29522 Subs Hosp L2
--- NOTE | 2018-07-09 11:48 | PCA ---
pt off floor
--- NOTE | 2018-07-09 12:11 | PCM.PN.SRG ---
Patient Problems: Active and Suspected Problems SBO (small bowel obstruction) (Acute) Acute electrocardiogram changes (Acute) Subjective: increasing abdominal pain - Physical Exam General: Alert, Oriented x3 Lungs: Clear to auscultation, Normal air movement Cardiovascular: Regular Rhythm, No murmurs, Tachycardic Abdomen: Soft, Hypoactive Bowel Sounds, Distended, Tender Vital Signs Temp Pulse Resp BP Pulse Ox 97.8 F 99 20 H 134/73 H 97 07/09/18 07:57 07/09/18 09:12 07/09/18 08:58 07/09/18 08:58 07/09/18 10:57 Oxygen Delivery Method Room Air Weight: 80 kg Body Mass Index (BMI) 28.3 Intake and Output for Last 24 Hours 07/07/18 07/08/18 07/09/18 23:59 23:59 23:59 Intake Total 3209 / 3209 1564 / 1564 2240 / 2240 Output Total 1250 / 1250 1700 / 1700 Balance 1959 / 195 1564 / 1564 540 / 540 Laboratory Tests Past 24 Hrs 07/09/18 07/09/18 07/09/18 05:30 05:30 05:30 WBC 3.9 L RBC 4.13 L Hgb 11.8 L Hct 35.8 L MCV 86.7 MCH 28.6 MCHC 33.0 RDW 13.7 RDW Differential 42.3 Plt Count 219 MPV 10.9 Immature Gran % (Auto) 0.300 Neut % (Auto) 68.3 Lymph % (Auto) 12.7 L [place] % (Auto) 18.4 H Eos % (Auto) 0.3 Baso % (Auto) 0.0 Absolute Neuts (auto) 2.6 Absolute Lymphs (auto) 0.49 L Total Counted Not Reportable Differential Comment SCANNED Sodium 141 Cancelled Potassium 3.1 L Cancelled Chloride 103 Cancelled Carbon Dioxide 23.0 Cancelled Anion Gap 15 Cancelled BUN 15 Cancelled Creatinine 0.48 L Cancelled Estim Creat Clear Calc 44.80 Cancelled Est GFR (MDRD) Af Amer 162 Cancelled Est GFR (MDRD) Non-Af 134 Cancelled BUN/Creatinine Ratio 31.3 H Cancelled Glucose 110 H Cancelled Calcium 8.7 Cancelled Phosphorus Magnesium Total Bilirubin 0.50 Cancelled AST 16 Cancelled ALT 18 Cancelled Alkaline Phosphatase 49 Cancelled Total Protein 6.4 Cancelled Albumin 3.0 L Cancelled Globulin 3.4 Cancelled Albumin/Globulin Ratio 0.9 Cancelled 07/09/18 05:30 WBC RBC Hgb Hct MCV MCH MCHC RDW RDW Differential Plt Count MPV Immature Gran % (Auto) Neut % (Auto) Lymph % (Auto) [place] % (Auto) Eos % (Auto) Baso % (Auto) Absolute Neuts (auto) Absolute Lymphs (auto) Total Counted Differential Comment Sodium Potassium Chloride Carbon Dioxide Anion Gap BUN Creatinine Estim Creat Clear Calc Est GFR (MDRD) Af Amer Est GFR (MDRD) Non-Af BUN/Creatinine Ratio Glucose Calcium Phosphorus 3.1 Magnesium 1.9 Total Bilirubin AST ALT Alkaline Phosphatase Total Protein Albumin Globulin Albumin/Globulin Ratio POC Glucose 07/09/18 07/08/18 07/08/18 07:02 21:32 16:38 POC Glucose 120 H 117 H 102 Medical Necessity - Tobacco Use Smoking Status: Never smoker Tobacco Use: Non-smoker Assessment/Plan All Active Problems SBO (small bowel obstruction) (Acute) Acute electrocardiogram changes (Acute) small bowel obstruction - vomiting overnight - KUB worsening small bowel obstruction WIll replace NG, give K, plan for exploratory laparoscopy/laparotomy lysis of adhesions for bowel obstruction. The patient understands the risks, benefits, possible complicaitons and altenatives and consents to the planned procedure.
--- NOTE | 2018-07-09 13:08 | PCA ---
pt off floor
[2018-07-09] MEDS: Bupivacaine Mpf 0.5% 30 ML VIAL (13:27)
--- NOTE | 2018-07-09 13:34 | PCM.OPRPT ---
Report of Operation Date of Procedure: 07/09/18 Pre-Operative Diagnosis: worsening small bowel obstruction Post-Operative Diagnosis: small bowel obstruction - adhesions to uterus and omental band Surgery/Procedure Performed:: laparoscopic exploration, laparoscopy lysis of adhesions. Description of Surgical Findings:: as above ecological economist: Margaret Napier Type of Anesthesia:: General Anesthesiologist: Ranjith CruzE Specimen's removed: none Drains: NG and martin - urine 150 Estimated Blood Loss (mL): minimal Fluids Replaced: 800 Description of Procedure: The patient was brought to the operating suite. Sign in was performed verifying patient, site, procedure, position, and DVT prophylaxis with SCDs. Patient received 900 mg of clindamycin . Following induction of general anesthetic. The patient?s abdomen was prepped and draped in the usual fashion. Timeout was performed verifying patient, site, position. Local anesthetic was injected below the umbilicus. Incision made and dissection carried down to the umbilical root fascia. 2 stay sutures were placed. Incision made in the fascia, the peritoneum entered under direct visualization. A 10 mm Truong trocar was inserted and secured with the stay sutures. Pneumoperitoneum to 15 mmHg was insufflated. 3- 5mm ports were placed left lower quadrant and midline sites. Visual inspection revealed significantly proximally distended small bowel with some superficial hemorrhage with no signs of compromised bowel. The distal bowel going into the ileocecal valve was collapsed. As the bowel was run proximally, 2 loops of bowel adherent to the previous uterine myomectomy site were noted to be adhesed. Laparoscopic lysis of adhesions was undertaken with Metzenbaum scissors carefully removing those 2 loops of bowel. The bowel was examined and there were no signs of injury to the bowel. The bowel was still noted to be somewhat collapsed at this point. As it was run proximally, omentum was noted to be densely adherent to the retroperitoneum and this loop caused kinking of the small bowel with proximal dilatation.this band was released laparoscopically with the Metzenbaum scissors. the small bowel was then run from the terminal ileum as far proximally as possible noting that the 2 areas of adhesed bowel had no signs or significant serosal injury and the obvious transition point from more collapsed to proximally distended with slightly hemorrhagic bowel was run as far as possible and there were noted to be no other obstructive sites. Following this, Interceed was placed on the uterus to prevent future adhesions. An 0 PDS figure 8 sutures placed on the umbilical port site. Pneumoperitoneum was reestablished. 5mm ports were removed under direct visualization with no signs of bleeding. Pneumoperitoneum was released. The Truong trocar was removed. The umbilical fascial suture was secured area did skin was closed with interrupted 4-0 Monocryl subcuticular sutures. Steri-Strips and bandages were applied. The patient was brought to recovery room in stable condition.
--- NOTE | 2018-07-09 13:37 | OP.PCM_ITS ---
Report of Operation Date of Procedure: 07/09/18 Pre-Operative Diagnosis: worsening small bowel obstruction Post-Operative Diagnosis: small bowel obstruction - adhesions to uterus and omental band Surgery/Procedure Performed:: laparoscopic exploration, laparoscopy lysis of adhesions. Description of Surgical Findings:: as above bait tier: Margaret Napier Type of Anesthesia:: General Anesthesiologist: Ranjith CruzE Specimen's removed: none Drains: NG and martin - urine 150 Estimated Blood Loss (mL): minimal Fluids Replaced: 800 Description of Procedure: The patient was brought to the operating suite. Sign in was performed verifying patient, site, procedure, position, and DVT prophylaxis with SCDs. Patient received 900 mg of clindamycin . Following induction of general anesthetic. The patient?s abdomen was prepped and draped in the usual fashion. Timeout was performed verifying patient, site, position. Local anesthetic was injected below the umbilicus. Incision made and dissection carried down to the umbilical root fascia. 2 stay sutures were placed. Incision made in the fascia, the peritoneum entered under direct visualization. A 10 mm Truong trocar was inserted and secured with the stay sutures. Pneumoperitoneum to 15 mmHg was insufflated. 3- 5mm ports were placed left lower quadrant and midline sites. Visual inspection revealed significantly proximally distended small bowel with s ome superficial hemorrhage with no signs of compromised bowel. The distal bowel going into the ileocecal valve was collapsed. As the bowel was run proximally, 2 loops of bowel adherent to the previous uterine myomectomy site were noted to be adhesed. Laparoscopic lysis of adhesions was undertaken with Metzenbaum scissors carefully removing those 2 loops of bowel. The bowel was examined and there were no signs of injury to the bowel. The bowel was still noted to be somewhat collapsed at this point. As it was run proximally, omentum was noted to be densely adherent to the retroperitoneum and this loop caused kinking of the small bowel with proximal dilatation.this band was released laparoscopically with the Metzenbaum scissors. the small bowel was then run from the terminal ileum as far proximally as possible noting that the 2 areas of adhesed bowel had no signs or significant serosal injury and the obvious transition point from more collapsed to proximally distended with slightly hemorrhagic bowel was run as far as possible and there were noted to be no other obstructive sites. Following this, Interceed was placed on the uterus to prevent future adhesions. An 0 PDS figure 8 sutures placed on the umbilical port site. Pneumoperitoneum was reestablished. 5mm ports were removed under direct visualization with no signs of bleeding. Pneumoperitoneum was released. The Truong trocar was removed. The umbilical fascial suture was secured area did skin was closed with interrupted 4-0 Monocryl subcuticular sutures. Steri- Strips and bandages were applied. The patient was brought to recovery room in stable condition.
[2018-07-09 14:06] LABS: Bedside Glucose 106 mg/dL (70-110)
[2018-07-09 18:41] LABS: Bedside Glucose 104 mg/dL (70-110)
--- NOTE | 2018-07-09 21:42 | RAD_ITS ---
STUDY: X-RAY CHEST REASON FOR EXAM: Female, 78 years old. Abnormal lung sounds TECHNIQUE: AP port COMPARISON: None. FINDINGS: There appears to be very tiny right pleural effusion and basilar atelectasis.. Right infrahilar calcified granulomata are present Borderline cardiomegaly. Normal mediastinum and mariano. Normal visualized pulmonary arteries. Mildly calcified aortic arch and descending thoracic aorta. Normal visualized thoracic spine. Normal visualized ribs, clavicles, and shoulders. Nasogastric tube is present with tip in distal stomach There is no demonstrated abnormality of the visualized soft tissue structures of the upper abdomen. RAD/Chest 1 View (Portable) IMPRESSION: Mild right basilar atelectasis and tiny right pleural effusion Electronically Signed: Yobani Ace MD at 23:10 EDT , Service support ,
--- NOTE | 2018-07-09 21:49 | NURSING ---
pt temp 100.5. resp 24, o2 at 2lnc 98%. resp shallow, lungs with crackles lll and anterior, dim right. call placed to the dr to notify of her crackles.
[2018-07-09] MEDS: Menthol/Lanolin/Calamine/Znox 113 GM Tube 1 APPLIC TOPICAL (22:01)
[2018-07-09] MEDS: Albuterol 2.5 MG/3 ML VIAL.NEB. INHALATION (23:51)
[2018-07-10] VITALS (22 sets, daily range): BP systolic 105–134; BP diastolic 51–68; PULSE 99–120; RESP 16–28; TEMP 36.4–37.5; O2SAT 93–98
[2018-07-10 00:46] LABS: Bedside Glucose 99 mg/dL (70-110)
[2018-07-10] MEDS: Morphine 2 MG/ML Syringe IV ×4 (01:41→14:10)
[2018-07-10 04:53] LABS: Bacteria 0 SEEN /hpf (None Seen)
[2018-07-10 05:09] LABS: Color, Urine Yellow (Yellow); Glucose, Dipstick Normal (Normal); Leukocyte Esterase-Dipstick 100 /ul (Negative); Nitrite-Dipstick Negative (Negative); Occult Blood-Urine 25 /ul (Negative); Protein-Dipstick 30 mg/dl (Negative); Urine Clarity Sl. Cloudy (Clear); Urine Urobilinogen Normal (Normal)
[2018-07-10 05:16] LABS: Ketone-Dipstick 150 mg/dl (Negative); Mucous, Urine 2+ /hpf (<or=2+); Squamous Epithelial Cells - UA 0-5 SEEN /hpf (5-10); Urine Bilirubin Dipstick 1 mg/dL (Negative)
[2018-07-10 05:17] LABS: Hyaline Cast 0-5 SEEN /lpf (0-5); Red Blood Cells-Urine 0-5 SEEN /hpf (0-5); White Blood Cells 5-10 SEEN /hpf (0-5)
[2018-07-10 06:24] LABS: Absolute Lymphocyte Count 0.55 X10^3/ul (0.83-4.51); Basophil# 0.01 X10^3/uL; Basophil% 0.3 % (0-1); Eosinophil# 0.05 X10^3/uL; Eosinophils% 1.6 % (0-5); Hematocrit 34.8 % (37-47); Hemoglobin 11.5 g/dl (12.0-15.0); Lymphocyte # 0.55 X10^3/ul (4.0); Lymphocyte % 17.3 % (19-41); Mean Corpuscular Volume 87.9 fL (81-99); Mean Platelet Vol. 10.7 fl (6.2-12.0); Monocyte# 0.52 X10^3/uL; Monocyte% 16.4 % (0-10); Neutrophil # 2.03 X10^3/uL (2.7-7.7); Neutrophil % 63.8 % (47-70); Platelet Count 198 K/mm3 (150-450); RBC Distribution Width SD 44.6 fl (35.1-43.9); Red Blood Count 3.96 M/mm3 (4.2-5.4); White Blood Count 3.2 K/mm3 (4.4-11.0)
[2018-07-10] MEDS: Budesonide Respules 0.5 MG/2 ML AMPUL.NEB. INHALATION ×2 (06:34→19:03)
[2018-07-10] MEDS: Ipratropium/Albuterol Sulfate 3 ML AMPUL.NEB INHALATION ×3 (06:34→19:03)
[2018-07-10 06:37] LABS: Anion Gap 12 (5-15); BUN 7 mg/dL (7-18); BUN/Creat Ratio 16.1 RATIO (10-20); Calcium,Total 8.2 mg/dL (8.5-10.1); Chloride 104 mmol/L (98-107); Creatinine, Serum 0.44 mg/dL (0.55-1.02); EST Glomerular Filtration Rate 149 mL/min (>60); Est Glom Filt Rate - Afr Amer 181 mL/min (>60); Glucose 87 mg/dL (74-106); Potassium 3.1 mmol/L (3.5-5.1); Sodium Level 141 mmol/L (136-145)
[2018-07-10 06:50] LABS: Differential Indicated SCAN CRITERIA MET; POSITIVE COUNT NO; POSITIVE DIFFERENTIAL YES; POSITIVE MORPHOLOGY YES
[2018-07-10 06:59] LABS: Differential Comment SCANNED
[2018-07-10] MEDS: Morphine 2 MG/ML Syringe IM (06:59)
[2018-07-10] MEDS: Metoprolol Tartrate 5 MG/5 ML Vial IV ×3 (07:05→17:48)
[2018-07-10 07:21] LABS: Bedside Glucose 89 mg/dL (70-110)
[2018-07-10] MEDS: Menthol/Lanolin/Calamine/Znox 113 GM Tube 1 APPLIC TOPICAL (09:11)
--- NOTE | 2018-07-10 09:43 | PN_ITS ---
Patient Problems: Active and Suspected Problems SBO (small bowel obstruction) (Acute) Acute electrocardiogram changes (Acute) Subjective: Chief complaint: Follow-up after admission for small bowel obstruction status post laparoscopic exploration and laparoscopic lysis of adhesions. Patient seen and examined. No acute events overnight. She complains of abdominal distention, having less abdominal pain. She denied nausea vomiting. Has no flatus, no bowel movement this morning. She is tachycardic, other vitals are stable. - Physical Exam General: Alert, Oriented x3, Cooperative, - - She is in mild pain and discomfort because of the abdominal distention. HEENT: Atraumatic, PERRLA, EOMI, Normocephalic Oral: Moist Mucosa, No Gingival or Mucosal Lesions/ Ulcerations Neck: Supple, No JVD, Negative Carotid Bruits, Trachea Midline, Thyroid Normal Size and Texture Lungs: Clear to auscultation, No wheeze, No rales, Diminished, Rhonchi Cardiovascular: Regular rate, Regular Rhythm, Normal S1, Normal S2, PMI Normal, Tachycardic Abdomen: Soft, No Hepato-splenomegaly, Hypoactive Bowel Sounds, Tender Extremities: No clubbing, No cyanosis, No edema Skin: No rashes, No breakdown Lymphatic: No Cervical, Supraclavicular, or Inguinal Adenopathy Neurological: Cranial nerves II-XII grossly intact, Motor Exam 5/5 strength throughout Psych/Mental Status: Normal Affect, Appropriate, Alert and oriented to time, place, person, mood and affect Vital Signs Temp Pulse Resp BP Pulse Ox 98.7 F 101 H 20 H 134/62 H 95 07/10/18 06:00 07/10/18 07:56 07/10/18 06:34 07/10/18 07:05 07/10/18 06:34 Oxygen Flow Rate (L/min) 2 Oxygen Delivery Method Nasal Cannula Weight: 176 lb 5.917 oz Body Mass Index (BMI) 28.3 Intake and Output for Last 24 Hours 07/08/18 07/09/18 07/10/18 23:59 23:59 23:59 Intake Total 1564 / 1564 3104 / 3104 108 / 108 Output Total 3650 / 3650 500 / 500 Balance 1564 / 1564 -546 / -546 -392 / -392 Laboratory Tests Past 24 Hrs 07/09/18 07/10/18 07/10/18 22:50 05:10 05:10 WBC 3.2 L RBC 3.96 L Hgb 11.5 L Hct 34.8 L MCV 87.9 MCH 29.0 MCHC 33.0 RDW 14.0 RDW Differential 44.6 H Plt Count 198 MPV 10.7 Immature Gran % (Auto) 0.600 Neut % (Auto) 63.8 Lymph % (Auto) 17.3 L [place] % (Auto) 16.4 H Eos % (Auto) 1.6 Baso % (Auto) 0.3 Absolute Neuts (auto) 2.0 Absolute Lymphs (auto) 0.55 L Total Counted Not Reportable Differential Comment SCANNED Sodium 141 Potassium 3.1 L Chloride 104 Carbon Dioxide 25.0 Anion Gap 12 BUN 7 Creatinine 0.44 L Estim Creat Clear Calc 44.80 Est GFR (MDRD) Af Amer 181 Est GFR (MDRD) Non-Af 149 BUN/Creatinine Ratio 16.1 Glucose 87 Calcium 8.2 L Urine Color Yellow Urine Clarity Sl. Cloudy Urine pH 6.0 Ur Specific Beecher 1.020 Urine Protein 30 H Urine Glucose (UA) Normal Urine Ketones 150 H Urine Occult Blood 25 H Urine Nitrite Negative Urine Bilirubin 1 H Urine Urobilinogen Normal Ur Leukocyte Esterase 100 H Urine RBC 0-5 SEEN Urine WBC 5-10 SEEN Ur Squamous Epith Cells 0-5 SEEN Urine Bacteria 0 SEEN Hyaline Casts 0-5 SEEN Urine Mucus 2+ POC Glucose 07/10/18 07/10/18 07/09/18 07:03 00:27 17:44 POC Glucose 89 99 104 07/09/18 14:02 POC Glucose 106 Medical Necessity - Tobacco Use Smoking Status: Never smoker Tobacco Use: Non-smoker Assessment/Plan All Active Problems SBO (small bowel obstruction) (Acute) Acute electrocardiogram changes (Acute) This is a 78 years old female patient presented to the emergency room because of abdominal pain with nausea and vomiting and she was found to have small bowel obstruction also found to have EKG changes without symptoms of chest pain shortness of breath. #1 small bowel obstruction: Status post laparoscopic exploration and laparoscopic lysis of adhesions, postoperative day 1. She is on n.p.o., IV fluids and IV pain medications. She is still symptomatic, having less pain but still distended, no flatus. Apart from tachycardia, other vital signs are stable. Routine blood work was remarkable for hypokalemia. General surgery on the case. Plan to continue same treatment, repeat CBC and CMP tomorrow morning, replace potassium. #2 EKG changes: Without chest pain or shortness of breath. Her troponin is negative x3. 2D echocardiogram revealed ejection fraction of 75%, stage I diastolic dysfunction and mild aortic stenosis. ACS ruled out. #3 hypokalemia: Although she received multiple K riders yesterday, potassium still low at 3.1. Her magnesium and phosphorus was normal yesterday. Plan to replace potassium 1 IV potassium chloride, repeat BMP tomorrow morning. #4 type 2 diabetes mellitus: Blood sugar stable. Continue sliding scale. #5 hypertension: Blood pressure stable but she is tachycardic, continue Norvasc and as needed IV hydralazine, she is on IV metoprolol as well. #6 hyperlipidemia: Continue statins. #7 chronic asthma: Clinically stable, pulse ox is maintained on room air. Continue albuterol as needed and Pulmicort twice daily. #8 DVT prophylaxis: SCDs.. This note was generated with [employer] dictation software. It may contain incorrect words, spelling, and punctuation that were not noted in checking the note before signing. Code Visit Inpatient E&M: 28565 Subs Hosp L2
[2018-07-10] MEDS: 0.9% NaCl Peripheral Flush Adult/Peds IV ×2 (09:52→17:48)
[2018-07-10 12:35] LABS: Bedside Glucose 88 mg/dL (70-110)
[2018-07-10] MEDS: Lactated Ringers 500 ML 999 ML IV (17:30)
--- NOTE | 2018-07-10 17:30 | PN.SURG_ITS ---
Patient Problems: Active and Suspected Problems SBO (small bowel obstruction) (Acute) Acute electrocardiogram changes (Acute) - Physical Exam General: Alert, Oriented x3, Cooperative Lungs: Diminished - bases Cardiovascular: Regular rate, Regular Rhythm Abdomen: Bowel Sounds Present, Soft, Bowel Sounds Not Present, Distended Vital Signs Temp Pulse Resp BP Pulse Ox 98.8 F 107 H 20 H 127/68 H 93 07/10/18 09:00 07/10/18 15:59 07/10/18 12:20 07/10/18 12:04 07/10/18 12:00 Oxygen Flow Rate (L/min) 2 Oxygen Delivery Method Room Air Weight: 80 kg Body Mass Index (BMI) 28.3 Intake and Output for Last 24 Hours 07/08/18 07/09/18 07/10/18 23:59 23:59 23:59 Intake Total 1564 / 1564 3104 / 3104 370 / 370 Output Total 3650 / 3650 850 / 850 Balance 1564 / 1564 -546 / -546 -480 / -480 Laboratory Tests Past 24 Hrs 07/09/18 07/10/18 07/10/18 22:50 05:10 05:10 WBC 3.2 L RBC 3.96 L Hgb 11.5 L Hct 34.8 L MCV 87.9 MCH 29.0 MCHC 33.0 RDW 14.0 RDW Differential 44.6 H Plt Count 198 MPV 10.7 Immature Gran % (Auto) 0.600 Neut % (Auto) 63.8 Lymph % (Auto) 17.3 L [place] % (Auto) 16.4 H Eos % (Auto) 1.6 Baso % (Auto) 0.3 Absolute Neuts (auto) 2.0 Absolute Lymphs (auto) 0.55 L Total Counted Not Reportable Differential Comment SCANNED Sodium 141 Potassium 3.1 L Chloride 104 Carbon Dioxide 25.0 Anion Gap 12 BUN 7 Creatinine 0.44 L Estim Creat Clear Calc 44.80 Est GFR (MDRD) Af Amer 181 Est GFR (MDRD) Non-Af 149 BUN/Creatinine Ratio 16.1 Glucose 87 Calcium 8.2 L Urine Color Yellow Urine Clarity Sl. Cloudy Urine pH 6.0 Ur Specific [place] 1.020 Urine Protein 30 H Urine Glucose (UA) Normal Urine Ketones 150 H Urine Occult Blood 25 H Urine Nitrite Negative Urine Bilirubin 1 H Urine Urobilinogen Normal Ur Leukocyte Esterase 100 H Urine RBC 0-5 SEEN Urine WBC 5-10 SEEN Ur Squamous Epith Cells 0-5 SEEN Urine Bacteria 0 SEEN Hyaline Casts 0-5 SEEN Urine Mucus 2+ POC Glucose 07/10/18 07/10/18 07/10/18 12:02 07:03 00:27 POC Glucose 88 89 99 07/09/18 17:44 POC Glucose 104 Medical Necessity - Tobacco Use Smoking Status: Never smoker Tobacco Use: Non-smoker Assessment/Plan All Active Problems SBO (small bowel obstruction) (Acute) Acute electrocardiogram changes (Acute) small bowel obstruction - POD # 1 status post laparoscopic exploration with lysis of adhesions patient with significant NG output overnight. NG tube was adjusted because it was not working properly the [facility]. We'll continue to follow NG output. Patient with poor respiratory effort overnight. We'll have patient be out of bed in chair and encourage incentive spirometry use area Somewhat tachycardic blood pressure appropriate. We'll follow Urine output somewhat decreasing overnight. IV fluids were held due to concern of fluid overload and crackles in lung base feels more likely hyperventilation. We will chewing operative but if urine output decreases we'll resume IV fluids plus or minus bolus. Hypoactive to nonexistent bowel sounds. This is to be expected given the bowel obstruction to be of bowel distention. We'll maintain NG tube until good flatus and improved return of bowel function. Do not feel need for antibiotics currently area did we'll follow patient SCDs and Lovenox for DVT prophylaxis.
[2018-07-10 18:10] LABS: Bedside Glucose 93 mg/dL (70-110)
--- NOTE | 2018-07-10 21:17 | NURSING ---
Patient called out and reported to DESIRAE Bee that she has swallowed something. She stated she was sleeping and she woke up to her swallowing something. When nurse checked on patient, pt breathing was normal, respirations 16/min, sats 93% on RA. NG in place with LIWS. Nurse checked inside her mouth and did not see anything to back of he throat. Nurse swabbed mouth also. Will continue to monitor.
[2018-07-11] VITALS (21 sets, daily range): BP systolic 127–165; BP diastolic 68–94; PULSE 92–122; RESP 16–28; TEMP 36.7–37.2; O2SAT 87–100
[2018-07-11] MEDS: Metoprolol Tartrate 5 MG/5 ML Vial IV ×4 (00:32→18:47)
[2018-07-11] MEDS: 0.9% NaCl Peripheral Flush Adult/Peds IV ×3 (00:40→18:47)
[2018-07-11] MEDS: Menthol/Lanolin/Calamine/Znox 113 GM Tube 1 APPLIC TOPICAL ×3 (00:49→22:20)
[2018-07-11 01:26] LABS: Bedside Glucose 93 mg/dL (70-110)
[2018-07-11 06:02] LABS: ALB/GLOB Ratio 0.7 RATIO (0.9-2.4); AST(SGOT) 14 U/L (15-37); Alanine Aminotransfer ALT/SGPT 16 U/L (13-56); Albumin, Serum 2.3 g/dL (3.2-5.0); Alkaline Phosphatase 43 U/L (45-117); Anion Gap 11 (5-15); BUN 7 mg/dL (7-18); BUN/Creat Ratio 16.9 RATIO (10-20); Calcium,Total 8.7 mg/dL (8.5-10.1); Chloride 107 mmol/L (98-107); Creatinine, Serum 0.42 mg/dL (0.55-1.02); EST Glomerular Filtration Rate 158 mL/min (>60); Est Glom Filt Rate - Afr Amer 191 mL/min (>60); Globulin 3.2 g/dL (2.2-4.2); Glucose 93 mg/dL (74-106); Potassium 3.6 mmol/L (3.5-5.1); Protein, Total 5.5 g/dL (6.4-8.2); Sodium Level 145 mmol/L (136-145)
[2018-07-11 06:41] LABS: Absolute Lymphocyte Count 0.71 X10^3/ul (0.83-4.51); Absolute Neutrophil Count 3.1 X10^3/uL (2.0-7.7); Basophil# 0.02 X10^3/uL; Basophil% 0.4 % (0-1); Eosinophil# 0.09 X10^3/uL; Eosinophils% 1.9 % (0-5); Hematocrit 33.2 % (37-47); Hemoglobin 10.8 g/dl (12.0-15.0); Lymphocyte # 0.71 X10^3/ul (4.0); Lymphocyte % 15.2 % (19-41); Mean Corp Hgb Conc 32.5 g/gl (32-36); Mean Corpuscular Hgb 28.6 pg (27.0-32.0); Mean Corpuscular Volume 88.1 fL (81-99); Mean Platelet Vol. 10.4 fl (6.2-12.0); Monocyte# 0.73 X10^3/uL; Monocyte% 15.6 % (0-10); Neutrophil % 66.3 % (47-70); Platelet Count 216 K/mm3 (150-450); RBC Distribution Width CV 14.1 % (11.6-14.6); RBC Distribution Width SD 44.6 fl (35.1-43.9); Red Blood Count 3.77 M/mm3 (4.2-5.4); White Blood Count 4.7 K/mm3 (4.4-11.0)
[2018-07-11 06:43] LABS: Differential Indicated SCAN CRITERIA MET; POSITIVE COUNT NO; POSITIVE DIFFERENTIAL NO; POSITIVE MORPHOLOGY YES
[2018-07-11 07:01] LABS: Differential Comment SCANNED; Toxic Granulation 1+
[2018-07-11] MEDS: Ipratropium/Albuterol Sulfate 3 ML AMPUL.NEB INHALATION ×2 (07:04→19:16)
[2018-07-11] MEDS: Budesonide Respules 0.5 MG/2 ML AMPUL.NEB. INHALATION ×2 (07:04→19:30)
[2018-07-11 07:06] LABS: Bedside Glucose 98 mg/dL (70-110)
--- NOTE | 2018-07-11 08:07 | RAD_ITS ---
STUDY: X-RAY - ABDOMEN/PELVIS REASON FOR EXAM: Female, 78 years old. Nasogastric tube placement. TECHNIQUE: Two AP supine views of the abdomen and pelvis. COMPARISON: Comparison is made with prior study dated July 09, 2018. FINDINGS: The tip of the nasogastric tube is seen in the distal portion of the stomach. This is unchanged. Mild improvement in the small bowel obstruction. The visualized liver, spleen and kidneys are grossly normal in size and morphology. Questionable ascites in the pelvis. There are diffuse degenerative changes of the visualized lumbar spine. RAD/Abdomen Single View (Portable) IMPRESSION: The tip of the nasogastric tube is in the distal portion of the stomach. Electronically Signed: Ajith Blunt MD at 10:11 EDT Tel [phone], Service support ,
[2018-07-11] MEDS: Lactated Ringers 500 ML IV (08:10)
--- NOTE | 2018-07-11 09:12 | PCM.PROGNOTE ---
Patient Problems: Active and Suspected Problems SBO (small bowel obstruction) (Acute) Acute electrocardiogram changes (Acute) Subjective: Chief complaint: Follow-up after admission for small bowel obstruction status post laparoscopic exploration and laparoscopic lysis of adhesions. Patient seen and examined. No acute events overnight. Today, she is feeling minimally better, having less abdominal pain but still there. No gas and no bowel movement. Denied nausea vomiting. Apart from mild tachycardia, other vital signs are stable. - Physical Exam General: Alert, Oriented x3, Cooperative, No apparent distress HEENT: Atraumatic, PERRLA, EOMI, Normocephalic Oral: Moist Mucosa, No Gingival or Mucosal Lesions/ Ulcerations Neck: Supple, No JVD, Negative Carotid Bruits, Trachea Midline, Thyroid Normal Size and Texture Lungs: Clear to auscultation, No rhonchi, No wheeze, No rales, Diminished Cardiovascular: Regular rate, Regular Rhythm, Normal S1, Normal S2, PMI Normal, Tachycardic Abdomen: Soft, Hypoactive Bowel Sounds, Distended, Tender Extremities: No clubbing, No cyanosis, No edema Skin: No rashes, No breakdown Lymphatic: No Cervical, Supraclavicular, or Inguinal Adenopathy Neurological: Cranial nerves II-XII grossly intact, Neuro grossly intact Psych/Mental Status: Normal Affect, Appropriate, Alert and oriented to time, place, person, mood and affect Vital Signs Temp Pulse Resp BP Pulse Ox 98.4 F 110 H 18 127/68 H 98 07/11/18 07:51 07/11/18 08:30 07/11/18 08:30 07/11/18 07:51 07/11/18 08:30 Oxygen Flow Rate (L/min) 2 Oxygen Delivery Method Nasal Cannula Weight: 176 lb 5.917 oz Body Mass Index (BMI) 28.3 Intake and Output for Last 24 Hours 07/09/18 07/10/18 07/11/18 23:59 23:59 23:59 Intake Total 3104 / 3104 635 / 635 1541 / 1541 Output Total 3650 / 3650 1125 / 1125 435 / 435 Balance -546 / -546 -490 / -490 1106 / 1106 Laboratory Tests Past 24 Hrs 07/11/18 07/11/18 05:02 05:02 WBC 4.7 RBC 3.77 L Hgb 10.8 L Hct 33.2 L MCV 88.1 MCH 28.6 MCHC 32.5 RDW 14.1 RDW Differential 44.6 H Plt Count 216 MPV 10.4 Immature Gran % (Auto) 0.600 Neut % (Auto) 66.3 Lymph % (Auto) 15.2 L [place] % (Auto) 15.6 H Eos % (Auto) 1.9 Baso % (Auto) 0.4 Absolute Neuts (auto) 3.1 Absolute Lymphs (auto) 0.71 L Total Counted Not Reportable Differential Comment SCANNED Toxic Granulation 1+ Sodium 145 Potassium 3.6 Chloride 107 Carbon Dioxide 27.0 Anion Gap 11 BUN 7 Creatinine 0.42 L Estim Creat Clear Calc 44.80 Est GFR (MDRD) Af Amer 191 Est GFR (MDRD) Non-Af 158 BUN/Creatinine Ratio 16.9 Glucose 93 Calcium 8.7 Total Bilirubin 0.40 AST 14 L ALT 16 Alkaline Phosphatase 43 L Total Protein 5.5 L Albumin 2.3 L Globulin 3.2 Albumin/Globulin Ratio 0.7 L POC Glucose 07/11/18 07/11/18 07/10/18 06:30 00:28 17:37 POC Glucose 98 93 93 07/10/18 12:02 POC Glucose 88 Medical Necessity - Tobacco Use Smoking Status: Never smoker Tobacco Use: Non-smoker Assessment/Plan All Active Problems SBO (small bowel obstruction) (Acute) Acute electrocardiogram changes (Acute) This is a 78 years old female patient presented to the emergency room because of abdominal pain with nausea and vomiting and she was found to have small bowel obstruction also found to have EKG changes without symptoms of chest pain shortness of breath. #1 small bowel obstruction: Status post laparoscopic exploration and laparoscopic lysis of adhesions, postoperative day 2. Remained on n.p.o., IV fluids and IV pain medications. Still having abdominal pain, no flatus and no bowel movement. Apart from tachycardia, other vital signs are stable. Potassium replaced and corrected. General surgery on the case. KUB is done this morning. Plan to continue same treatment. #2 EKG changes: Without chest pain or shortness of breath. Her troponin is negative x3. 2D echocardiogram revealed ejection fraction of 75%, stage I diastolic dysfunction and mild aortic stenosis. ACS ruled out. #3 hypokalemia: Today's potassium is 3.6 mEq/L. Replaced and corrected. Her magnesium and phosphorus was normal from day before yesterday. #4 type 2 diabetes mellitus: Blood sugar stable. Continue sliding scale. #5 hypertension: Blood pressure stable but she is tachycardic, continue Norvasc and as needed IV hydralazine, she is on IV metoprolol as well. #6 hyperlipidemia: Continue statins. #7 chronic asthma: Clinically stable, pulse ox is maintained on room air. Continue albuterol as needed and Pulmicort twice daily. #8 DVT prophylaxis: SCDs.. This note was generated with [employer] dictation software. It may contain incorrect words, spelling, and punctuation that were not noted in checking the note before signing. Code Visit Inpatient E&M: 33213 Subs Hosp L2
[2018-07-11] MEDS: Lactated Ringers 1,000 ML 75 ML IV ×2 (09:34→22:20)
[2018-07-11] MEDS: Famotidine 20mg IV Push Syringe Q12 300 MG IV ×2 (11:05→22:19)
[2018-07-11] MEDS: Ondansetron 4 MG/2 ML Vial IV (12:54)
--- NOTE | 2018-07-11 13:21 | PCM.PN.SRG ---
Patient Problems: Active and Suspected Problems SBO (small bowel obstruction) (Acute) Acute electrocardiogram changes (Acute) Subjective: no flatus, incisional pain but improving - Physical Exam General: Alert, Oriented x3, Cooperative Lungs: Clear to auscultation, Diminished Cardiovascular: Regular rate, Regular Rhythm Abdomen: Soft, Hypoactive Bowel Sounds, Distended Vital Signs Temp Pulse Resp BP Pulse Ox 98.1 F 98 18 146/82 H 95 07/11/18 13:16 07/11/18 13:16 07/11/18 13:16 07/11/18 13:16 07/11/18 13:16 Oxygen Flow Rate (L/min) 2 Oxygen Delivery Method Room Air Weight: 80 kg Body Mass Index (BMI) 28.3 Intake and Output for Last 24 Hours 07/09/18 07/10/18 07/11/18 23:59 23:59 23:59 Intake Total 3104 / 3104 635 / 635 2343 / 2343 Output Total 3650 / 3650 1125 / 1125 735 / 735 Balance -546 / -546 -490 / -490 1608 / 1608 Microbiology Past 72 Hours 07/09/18 22:50 Urine Culture - Preliminary Urine Catheter - Barrera Culture exhibits no growth. Laboratory Tests Past 24 Hrs 07/11/18 07/11/18 05:02 05:02 WBC 4.7 RBC 3.77 L Hgb 10.8 L Hct 33.2 L MCV 88.1 MCH 28.6 MCHC 32.5 RDW 14.1 RDW Differential 44.6 H Plt Count 216 MPV 10.4 Immature Gran % (Auto) 0.600 Neut % (Auto) 66.3 Lymph % (Auto) 15.2 L [place] % (Auto) 15.6 H Eos % (Auto) 1.9 Baso % (Auto) 0.4 Absolute Neuts (auto) 3.1 Absolute Lymphs (auto) 0.71 L Total Counted Not Reportable Differential Comment SCANNED Toxic Granulation 1+ Sodium 145 Potassium 3.6 Chloride 107 Carbon Dioxide 27.0 Anion Gap 11 BUN 7 Creatinine 0.42 L Estim Creat Clear Calc 44.80 Est GFR (MDRD) Af Amer 191 Est GFR (MDRD) Non-Af 158 BUN/Creatinine Ratio 16.9 Glucose 93 Calcium 8.7 Total Bilirubin 0.40 AST 14 L ALT 16 Alkaline Phosphatase 43 L Total Protein 5.5 L Albumin 2.3 L Globulin 3.2 Albumin/Globulin Ratio 0.7 L POC Glucose 07/11/18 07/11/18 07/10/18 06:30 00:28 17:37 POC Glucose 98 93 93 Medical Necessity - Tobacco Use Smoking Status: Never smoker Tobacco Use: Non-smoker Assessment/Plan All Active Problems SBO (small bowel obstruction) (Acute) Acute electrocardiogram changes (Acute) small bowel obstruction - POD # 2 status post laparoscopic exploration with lysis of adhesions patient with significant NG output overnight. NG tube was adjusted because it was not working properly the [facility]. We'll continue to follow NG output. KUB demonstrated Patient with poor respiratory effort overnight. We'll have patient be out of bed in chair and encourage incentive spirometry use area Somewhat tachycardic blood pressure appropriate. We'll follow Urine output somewhat decreasing overnight. IV fluids were held due to concern of fluid overload and crackles in lung base feels more likely hyperventilation. We will chewing operative but if urine output decreases we'll resume IV fluids plus or minus bolus. Hypoactive to nonexistent bowel sounds. This is to be expected given the bowel obstruction to be of bowel distention. We'll maintain NG tube until good flatus and improved return of bowel function. Do not feel need for antibiotics currently area did we'll follow patient SCDs and Lovenox for DVT prophylaxis.
--- NOTE | 2018-07-11 14:56 | NURSING ---
pts' neighbor came and is helping her write some checks and pay some bills, pt is a&o x3, appreciative of neighbors' help
--- NOTE | 2018-07-11 15:41 | NURSING ---
Aware of Vitals from 1316 today.
--- NOTE | 2018-07-11 18:50 | NURSING ---
up to bsc. HR up to 140. pt denies symptoms of dizzyness. VS taken, see intervention.
[2018-07-11 19:01] LABS: Bedside Glucose 108 mg/dL (70-110)
[2018-07-11 22:31] LABS: Bedside Glucose 101 mg/dL (70-110)
[2018-07-12] VITALS (20 sets, daily range): BP systolic 136–160; BP diastolic 67–90; PULSE 98–119; RESP 18–24; TEMP 36.7–37.4; O2SAT 88–96
[2018-07-12] MEDS: Metoprolol Tartrate 5 MG/5 ML Vial IV ×4 (01:24→18:28)
[2018-07-12 01:41] LABS: Bedside Glucose 90 mg/dL (70-110)
[2018-07-12 05:50] LABS: Bedside Glucose 99 mg/dL (70-110)
[2018-07-12] MEDS: Ipratropium/Albuterol Sulfate 3 ML AMPUL.NEB INHALATION ×3 (06:31→19:13)
[2018-07-12] MEDS: Budesonide Respules 0.5 MG/2 ML AMPUL.NEB. INHALATION ×2 (06:31→19:13)
[2018-07-12] MEDS: Lactated Ringers 1,000 ML 50 ML IV ×2 (06:52→14:13)
--- NOTE | 2018-07-12 08:36 | PCM.PROGNOTE ---
Patient Problems: Active and Suspected Problems SBO (small bowel obstruction) (Acute) Acute electrocardiogram changes (Acute) Subjective: Chief complaint: Follow-up after admission for small bowel obstruction status post laparoscopic exploration and laparoscopic lysis of adhesions. Patient seen and examined. No acute events overnight. Today, she was able to pass flatus, she is having less abdominal pain. Denied nausea or vomiting. All over, she is feeling better. Blood pressure slightly elevated, mild tachycardia, other vital signs are stable. - Physical Exam General: Alert, Oriented x3, Cooperative, No apparent distress HEENT: Atraumatic, PERRLA, EOMI, Normocephalic Oral: Moist Mucosa, No Gingival or Mucosal Lesions/ Ulcerations Neck: Supple, No JVD, Negative Carotid Bruits, Trachea Midline, Thyroid Normal Size and Texture Lungs: Clear to auscultation, No rhonchi, No wheeze, No rales, Diminished Cardiovascular: Regular rate, Regular Rhythm, Normal S1, Normal S2, PMI Normal, Tachycardic Abdomen: Soft, Non Tender, Hypoactive Bowel Sounds, Distended Extremities: No clubbing, No cyanosis, No edema Skin: No rashes, No breakdown Lymphatic: No Cervical, Supraclavicular, or Inguinal Adenopathy Neurological: Cranial nerves II-XII grossly intact, Neuro grossly intact Psych/Mental Status: Normal Affect, Appropriate Vital Signs Temp Pulse Resp BP Pulse Ox 98.3 F 109 H 18 160/76 H 89 07/12/18 08:03 07/12/18 08:03 07/12/18 08:03 07/12/18 08:03 07/12/18 08:03 Oxygen Flow Rate (L/min) 2 Oxygen Delivery Method Room Air Weight: 176 lb 5.917 oz Body Mass Index (BMI) 28.3 Intake and Output for Last 24 Hours 07/10/18 07/11/18 07/12/18 23:59 23:59 23:59 Intake Total 635 / 635 3164 / 3164 927 / 927 Output Total 1125 / 1125 1435 / 1435 1325 / 1325 Balance -490 / -490 1729 / 1729 -398 / -398 Microbiology Past 72 Hours 07/09/18 22:50 Urine Culture - Preliminary Urine Catheter - Barrera Culture exhibits no growth. POC Glucose 07/12/18 07/12/18 07/11/18 05:28 01:17 22:09 POC Glucose 99 90 101 07/11/18 18:41 POC Glucose 108 Medical Necessity - Tobacco Use Smoking Status: Never smoker Tobacco Use: Non-smoker Assessment/Plan All Active Problems SBO (small bowel obstruction) (Acute) Acute electrocardiogram changes (Acute) This is a 78 years old female patient presented to the emergency room because of abdominal pain with nausea and vomiting and she was found to have small bowel obstruction, underwent laparoscopic exploration and laparoscopic lysis of adhesions, also found to have EKG changes without symptoms of chest pain shortness of breath. #1 small bowel obstruction: Status post laparoscopic exploration and laparoscopic lysis of adhesions, postoperative day 2. Remained on n.p.o., IV fluids and IV pain medications. Abdominal pain improved, she was able to pass flatus, no more nausea vomiting. NG tube taken out. Slightly tachycardic, blood pressure slightly elevated, other vital signs are stable. Potassium replaced and corrected. General surgery on the case. Plan: Continue same treatment, repeat CBC and CMP tomorrow morning, may start clear liquids later today. #2 EKG changes: Without chest pain or shortness of breath. Her troponin is negative x3. 2D echocardiogram revealed ejection fraction of 75%, stage I diastolic dysfunction and mild aortic stenosis. ACS ruled out. #3 hypokalemia: Yesterday's potassium is 3.6 mEq/L. Replaced and corrected. Her magnesium and phosphorus was normal from day before yesterday. #4 type 2 diabetes mellitus: Blood sugar stable. Continue sliding scale. #5 hypertension: Blood pressure slightly elevated, continue Norvasc, Altace and as needed IV hydralazine, she is on IV metoprolol as well. #6 hyperlipidemia: Continue statins. #7 chronic asthma: Clinically stable, Continue DuoNeb, albuterol as needed and Pulmicort twice daily. #8 DVT prophylaxis: SCDs.. This note was generated with [employer] dictation software. It may contain incorrect words, spelling, and punctuation that were not noted in checking the note before signing. Code Visit Inpatient E&M: 17465 Subs Hosp L2
[2018-07-12] MEDS: Menthol/Lanolin/Calamine/Znox 113 GM Tube 1 APPLIC TOPICAL (09:38)
[2018-07-12] MEDS: Famotidine 20mg IV Push Syringe Q12 300 MG IV ×2 (09:39→22:25)
[2018-07-12] MEDS: 0.9% NaCl Peripheral Flush Adult/Peds IV (09:39)
[2018-07-12 11:35] LABS: Bedside Glucose 87 mg/dL (70-110)
[2018-07-12] MEDS: Atorvastatin Calcium 40 MG Tablet PO (14:44)
[2018-07-12] MEDS: Ramipril 10 MG Capsule PO (14:44)
[2018-07-12] MEDS: hydroCHLOROthiazide 25 MG Tablet PO (14:44)
[2018-07-12] MEDS: amLODIPine 10 MG Tablet PO (14:45)
--- NOTE | 2018-07-12 15:02 | CASEMGMT ---
KRISTEN DAY in to talk to patient regarding discharge plans. Patient agreeable to [facility] for [facility] and therapy. Patient agreeable to [facility]. [facility] not in network with [employer] insurance. KRISTEN DAY called [facility] for [employer] insurance to arrange for C. KRISTEN DAY to continue to follow this patient and plan for a safe discharge.
[2018-07-12 16:35] LABS: Bedside Glucose 136 mg/dL (70-110)
--- NOTE | 2018-07-12 18:19 | PCM.PN.SRG ---
Patient Problems: Active and Suspected Problems SBO (small bowel obstruction) (Acute) Acute electrocardiogram changes (Acute) Subjective: passing flatus, want NG tube out - Physical Exam General: Alert, Oriented x3, Cooperative Lungs: Clear to auscultation, Normal air movement Cardiovascular: Regular rate, Regular Rhythm Abdomen: Bowel Sounds Present, Soft, Hypoactive Bowel Sounds, Distended - less so, Vital Signs Temp Pulse Resp BP Pulse Ox 98.3 F 119 H 18 150/90 H 94 07/12/18 16:24 07/12/18 17:50 07/12/18 16:24 07/12/18 16:24 07/12/18 16:24 Oxygen Flow Rate (L/min) 2 Oxygen Delivery Method Room Air Weight: 80 kg Body Mass Index (BMI) 28.3 Intake and Output for Last 24 Hours 07/10/18 07/11/18 07/12/18 23:59 23:59 23:59 Intake Total 635 / 635 3164 / 3164 1247 / 1247 Output Total 1125 / 1125 1435 / 1435 1325 / 1325 Balance -490 / -490 1729 / 1729 -78 / -78 Microbiology Past 72 Hours 07/09/18 22:14 Blood Culture - Preliminary Blood Culture (Wb) - Anticubital Left No growth in 48 hours. 07/09/18 22:02 Blood Culture - Preliminary Blood Culture (Wb) - Right Forearm No growth in 48 hours. 07/09/18 22:50 Urine Culture - Final Urine Catheter - Barrera Culture exhibits no growth. POC Glucose 07/12/18 07/12/18 07/12/18 16:28 11:29 05:28 POC Glucose 136 H 87 99 07/12/18 07/11/18 07/11/18 01:17 22:09 18:41 POC Glucose 90 101 108 Medical Necessity - Tobacco Use Smoking Status: Never smoker Tobacco Use: Non-smoker Assessment/Plan All Active Problems SBO (small bowel obstruction) (Acute) Acute electrocardiogram changes (Acute) small bowel obstruction - POD # 3 status post laparoscopic exploration with lysis of adhesions patient with much less NG output overnight. passing flatus, will D/C NG tube Patient with improved respiratory effort. Continue pulmonary toilet Will start clears if patient tolerating - will advance slowly. Do not feel need for antibiotics currently area did we'll follow patient SCDs and Lovenox for DVT prophylaxis.
[2018-07-13] VITALS (17 sets, daily range): BP systolic 115–147; BP diastolic 60–77; PULSE 92–115; RESP 16–20; TEMP 36.6–37.2; O2SAT 94–98
[2018-07-13] MEDS: Metoprolol Tartrate 5 MG/5 ML Vial IV ×2 (00:17→06:04)
[2018-07-13 00:30] LABS: Bedside Glucose 152 mg/dL (70-110)
[2018-07-13 06:16] LABS: Bedside Glucose 122 mg/dL (70-110)
[2018-07-13 07:05] LABS: Absolute Lymphocyte Count 1.26 X10^3/ul (0.83-4.51); Absolute Neutrophil Count 3.3 X10^3/uL (2.0-7.7); Basophil# 0.01 X10^3/uL; Basophil% 0.2 % (0-1); Eosinophil# 0.08 X10^3/uL; Eosinophils% 1.4 % (0-5); Hematocrit 35.8 % (37-47); Hemoglobin 11.8 g/dl (12.0-15.0); Lymphocyte # 1.26 X10^3/ul (4.0); Mean Corpuscular Hgb 28.3 pg (27.0-32.0); Mean Corpuscular Volume 85.9 fL (81-99); Mean Platelet Vol. 10.4 fl (6.2-12.0); Monocyte# 0.99 X10^3/uL; Monocyte% 17.2 % (0-10); Neutrophil # 3.34 X10^3/uL (2.7-7.7); Neutrophil % 58.2 % (47-70); Platelet Count 232 K/mm3 (150-450); RBC Distribution Width CV 13.8 % (11.6-14.6); RBC Distribution Width SD 43.4 fl (35.1-43.9); Red Blood Count 4.17 M/mm3 (4.2-5.4); White Blood Count 5.7 K/mm3 (4.4-11.0)
[2018-07-13 07:08] LABS: POSITIVE COUNT NO; POSITIVE DIFFERENTIAL NO; POSITIVE MORPHOLOGY NO
[2018-07-13 07:33] LABS: ALB/GLOB Ratio 0.7 RATIO (0.9-2.4); AST(SGOT) 16 U/L (15-37); Alanine Aminotransfer ALT/SGPT 16 U/L (13-56); Albumin, Serum 2.4 g/dL (3.2-5.0); Alkaline Phosphatase 47 U/L (45-117); Anion Gap 9 (5-15); BUN 2 mg/dL (7-18); BUN/Creat Ratio 6.3 RATIO (10-20); Calcium,Total 8.6 mg/dL (8.5-10.1); Chloride 94 mmol/L (98-107); Creatinine, Serum 0.32 mg/dL (0.55-1.02); EST Glomerular Filtration Rate 216 mL/min (>60); Est Glom Filt Rate - Afr Amer 262 mL/min (>60); Globulin 3.4 g/dL (2.2-4.2); Glucose 117 mg/dL (74-106); Potassium 2.6 mmol/L (3.5-5.1); Protein, Total 5.8 g/dL (6.4-8.2); Sodium Level 138 mmol/L (136-145)
--- NOTE | 2018-07-13 07:54 | PCM.PN.SRG ---
Patient Problems: Active and Suspected Problems SBO (small bowel obstruction) (Acute) Acute electrocardiogram changes (Acute) Subjective: tolerating liquids, fatigued - Physical Exam General: Alert, Oriented x3, Cooperative Lungs: Clear to auscultation, Normal air movement Cardiovascular: Regular rate, Regular Rhythm, Tachycardic Abdomen: Soft, Hypoactive Bowel Sounds, Tender - at incisions Vital Signs Temp Pulse Resp BP Pulse Ox 98.1 F 104 H 18 133/77 H 94 07/13/18 06:00 07/13/18 06:04 07/13/18 06:00 07/13/18 06:04 07/13/18 06:00 Oxygen Flow Rate (L/min) 2 Oxygen Delivery Method Room Air Weight: 80 kg Body Mass Index (BMI) 28.3 Intake and Output for Last 24 Hours 07/11/18 07/12/18 07/13/18 23:59 23:59 23:59 Intake Total 3164 / 3164 2487 / 2487 833 / 833 Output Total 1435 / 1435 1325 / 1325 Balance 1729 / 1729 1162 / 1162 833 / 833 Microbiology Past 72 Hours 07/09/18 22:14 Blood Culture - Preliminary Blood Culture (Wb) - Anticubital Left No growth in 48 hours. 07/09/18 22:02 Blood Culture - Preliminary Blood Culture (Wb) - Right Forearm No growth in 48 hours. 07/09/18 22:50 Urine Culture - Final Urine Catheter - Barrera Culture exhibits no growth. Laboratory Tests Past 24 Hrs 07/13/18 07/13/18 06:14 06:14 WBC 5.7 RBC 4.17 L Hgb 11.8 L Hct 35.8 L MCV 85.9 MCH 28.3 MCHC 33.0 RDW 13.8 RDW Differential 43.4 Plt Count 232 MPV 10.4 Immature Gran % (Auto) 1.000 H Neut % (Auto) 58.2 Lymph % (Auto) 22.0 [place] % (Auto) 17.2 H Eos % (Auto) 1.4 Baso % (Auto) 0.2 Absolute Neuts (auto) 3.3 Absolute Lymphs (auto) 1.26 Total Counted Not Reportable Sodium 138 Potassium 2.6 L* Chloride 94 L Carbon Dioxide 35.0 H Anion Gap 9 BUN 2 L Creatinine 0.32 L Estim Creat Clear Calc 44.80 Est GFR (MDRD) Af Amer 262 Est GFR (MDRD) Non-Af 216 BUN/Creatinine Ratio 6.3 L Glucose 117 H Calcium 8.6 Total Bilirubin 0.50 AST 16 ALT 16 Alkaline Phosphatase 47 Total Protein 5.8 L Albumin 2.4 L Globulin 3.4 Albumin/Globulin Ratio 0.7 L POC Glucose 07/13/18 07/13/18 07/12/18 05:56 00:14 16:28 POC Glucose 122 H 152 H 136 H 07/12/18 11:29 POC Glucose 87 Medical Necessity - Tobacco Use Smoking Status: Never smoker Tobacco Use: Non-smoker Assessment/Plan All Active Problems SBO (small bowel obstruction) (Acute) Acute electrocardiogram changes (Acute) small bowel obstruction - POD # 4 status post laparoscopic exploration with lysis of adhesions Patient tolerating liquids, will advance as tolerated Patient with improved respiratory effort. Continue pulmonary toilet Will start clears if patient tolerating - will advance slowly. Do not feel need for antibiotics currently area did we'll follow patient SCDs and Lovenox for DVT prophylaxis. Patient debilitated - PT and OT continuing, anticipate patient will need transitional care for strengthening
[2018-07-13] MEDS: Ipratropium/Albuterol Sulfate 3 ML AMPUL.NEB INHALATION ×3 (07:56→18:45)
[2018-07-13] MEDS: Budesonide Respules 0.5 MG/2 ML AMPUL.NEB. INHALATION ×2 (07:56→18:46)
[2018-07-13 08:24] LABS: Magnesium 1.6 mg/dL (1.6-2.6)
--- NOTE | 2018-07-13 08:49 | PN_ITS ---
Patient Problems: Active and Suspected Problems SBO (small bowel obstruction) (Acute) Acute electrocardiogram changes (Acute) Subjective: Chief complaint: Follow-up after admission for small bowel obstruction status post laparoscopic exploration and laparoscopic lysis of adhesions. Patient seen and examined. No acute events overnight. Abdominal pain is improving, she has been passing flatus. Tolerating clear liquids, no nausea vomiting. Apart from mild tachycardia, other vital signs are stable. - Physical Exam General: Alert, Oriented x3, Cooperative, No apparent distress HEENT: Atraumatic, PERRLA, EOMI, Normocephalic Oral: Moist Mucosa, No Gingival or Mucosal Lesions/ Ulcerations Neck: Supple, No JVD, Negative Carotid Bruits, Trachea Midline, Thyroid Normal Size and Texture Lungs: Clear to auscultation, No rhonchi, No wheeze, No rales, Diminished Cardiovascular: Regular rate, Regular Rhythm, Normal S1, Normal S2, PMI Normal, Tachycardic Abdomen: Bowel Sounds Present, Soft, Non-Distended, No Hepato-splenomegaly, Tender - Minimal tenderness. Extremities: No clubbing, No cyanosis, No edema Skin: No rashes, No breakdown Lymphatic: No Cervical, Supraclavicular, or Inguinal Adenopathy Neurological: Cranial nerves II-XII grossly intact, Neuro grossly intact Psych/Mental Status: Normal Affect, Appropriate, Alert and oriented to time, place, person, mood and affect Vital Signs Temp Pulse Resp BP Pulse Ox 98.1 F 98 16 133/77 H 96 07/13/18 06:00 07/13/18 07:56 07/13/18 07:56 07/13/18 06:04 07/13/18 07:56 Oxygen Flow Rate (L/min) 1 Oxygen Delivery Method Nasal Cannula Weight: 176 lb 5.917 oz Body Mass Index (BMI) 28.3 Intake and Output for Last 24 Hours 07/11/18 07/12/18 07/13/18 23:59 23:59 23:59 Intake Total 3164 / 3164 2487 / 2487 833 / 833 Output Total 1435 / 1435 1325 / 1325 Balance 1729 / 1729 1162 / 1162 833 / 833 Microbiology Past 72 Hours 07/09/18 22:14 Blood Culture - Preliminary Blood Culture (Wb) - Anticubital Left No growth in 48 hours. 07/09/18 22:02 Blood Culture - Preliminary Blood Culture (Wb) - Right Forearm No growth in 48 hours. 07/09/18 22:50 Urine Culture - Final Urine Catheter - Barrera Culture exhibits no growth. Laboratory Tests Past 24 Hrs 07/13/18 07/13/18 07/13/18 06:14 06:14 06:14 WBC 5.7 RBC 4.17 L Hgb 11.8 L Hct 35.8 L MCV 85.9 MCH 28.3 MCHC 33.0 RDW 13.8 RDW Differential 43.4 Plt Count 232 MPV 10.4 Immature Gran % (Auto) 1.000 H Neut % (Auto) 58.2 Lymph % (Auto) 22.0 Tyrrell % (Auto) 17.2 H Eos % (Auto) 1.4 Baso % (Auto) 0.2 Absolute Neuts (auto) 3.3 Absolute Lymphs (auto) 1.26 Total Counted Not Reportable Sodium 138 Potassium 2.6 L* Chloride 94 L Carbon Dioxide 35.0 H Anion Gap 9 BUN 2 L Creatinine 0.32 L Estim Creat Clear Calc 44.80 Est GFR (MDRD) Af Amer 262 Est GFR (MDRD) Non-Af 216 BUN/Creatinine Ratio 6.3 L Glucose 117 H Calcium 8.6 Magnesium 1.6 Total Bilirubin 0.50 AST 16 ALT 16 Alkaline Phosphatase 47 Total Protein 5.8 L Albumin 2.4 L Globulin 3.4 Albumin/Globulin Ratio 0.7 L POC Glucose 07/13/18 07/13/18 07/12/18 05:56 00:14 16:28 POC Glucose 122 H 152 H 136 H 07/12/18 11:29 POC Glucose 87 Medical Necessity - Tobacco Use Smoking Status: Never smoker Tobacco Use: Non-smoker Assessment/Plan All Active Problems SBO (small bowel obstruction) (Acute) Acute electrocardiogram changes (Acute) This is a 78 years old female patient presented to the emergency room because of abdominal pain with nausea and vomiting and she was found to have small bowel obstruction, underwent laparoscopic exploration and laparoscopic lysis of adhesions, also found to have EKG changes without symptoms of chest pain shortness of breath. #1 small bowel obstruction: Status post laparoscopic exploration and laparoscopic lysis of adhesions, postoperative day 3. Tolerating clear liquids, symptoms are improving, passing flatus. Slightly tachycardic, blood pressure slightly elevated, other vital signs are stable. Potassium still very low. General surgery on the case. Plan to replace potassium, advance diet as tolerated, patient will probably need placement to custodial facility. #2 EKG changes: Without chest pain or shortness of breath. Her troponin is negative x3. 2D echocardiogram revealed ejection fraction of 75%, stage I diastolic dysfunction and mild aortic stenosis. ACS ruled out. #3 hypokalemia: Today's potassium is 2.6 mEq/L. Started on oral K Dur twice daily. Plan to check magnesium, replace if needed, Repeat BMP tomorrow morning. #4 type 2 diabetes mellitus: Blood sugar stable. Continue sliding scale. #5 hypertension: Blood pressure slightly elevated, continue Norvasc, Altace and as needed IV hydralazine, she is on IV metoprolol as well. #6 hyperlipidemia: Continue statins. #7 chronic asthma: Clinically stable, Continue DuoNeb, albuterol as needed and Pulmicort twice daily. #8 DVT prophylaxis: SCDs.. This note was generated with [employer] dictation software. It may contain incorrect words, spelling, and punctuation that were not noted in checking the note before signing. Code Visit Inpatient E&M: 86934 Subs Hosp L2
[2018-07-13] MEDS: hydroCHLOROthiazide 25 MG Tablet PO (09:49)
[2018-07-13] MEDS: Ramipril 10 MG Capsule PO (09:49)
[2018-07-13] MEDS: Menthol/Lanolin/Calamine/Znox 113 GM Tube 1 APPLIC TOPICAL (09:49)
[2018-07-13] MEDS: Atorvastatin Calcium 40 MG Tablet PO (09:50)
[2018-07-13] MEDS: amLODIPine 10 MG Tablet PO (09:51)
[2018-07-13] MEDS: Famotidine 20mg IV Push Syringe Q12 300 MG IV ×2 (09:51→22:11)
[2018-07-13] MEDS: Metoprolol(XL)Succ 100 MG Tablet PO (09:52)
[2018-07-13] MEDS: Lactated Ringers 1,000 ML 50 ML IV (10:01)
--- NOTE | 2018-07-13 10:57 | CASEMGMT ---
Social Work [facility] Spoke with Dr. Tay today who is recommending either rehab or group home level of care for this patient at time of discharge. Physician reports patient prefers to stay within [facility] if possible. Collaborated with Angela Ross RN, CM about possible placement for this patient. Per KRISTEN DAY the original plan was for return home with skilled HHC. Spoke with patient, introduced to role. Patient reports that surgeon has also suggested to patient recommendation for further care prior to returning home. 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 Patient reports that may be able to manage at home with HHC, with assist of friends, but this will take much longer to recover and patient needs to be able to get back to work sooner than later. Talked about options for patient. Patient reports that not interested in going to a community based SNF. Patient reports preference to remain in the hospital for continued recovery. Patient reports to have [employer] as primary (due to still working) and then Medicare A as secondary. Educated patient that can make referral, will need to see how patient continues to progress through the weekend, see what level of care may be most appropriate for patient, look at bed availability and then would have to get insurance authorization. Agreed to make initial referral and then socila worker would follow up with patient after the weekend with an update. Addressed patient's coping at this time. Patient reports to feel well emotionally, that has intellectually knows patient needs to care for self but it is the physical body that is giving patient a hard time right now. Called [facility] post acute referral line at extension [phone]. Message left of referral and social work therapist to contact on Sunday. Plan: Social work following for possible placement. -TREVOR Phillip, TRACK LAYER
[2018-07-13 11:45] LABS: Bedside Glucose 129 mg/dL (70-110)
[2018-07-13 16:50] LABS: Bedside Glucose 124 mg/dL (70-110)
[2018-07-14] VITALS (14 sets, daily range): BP systolic 118–134; BP diastolic 70–76; PULSE 81–107; RESP 16–18; TEMP 36.5–36.9; O2SAT 95–98
[2018-07-14 00:05] LABS: Bedside Glucose 149 mg/dL (70-110)
[2018-07-14] MEDS: Lactated Ringers 1,000 ML 50 ML IV (05:06)
[2018-07-14 07:24] LABS: Anion Gap 7 (5-15); BUN 4 mg/dL (7-18); BUN/Creat Ratio 10.6 RATIO (10-20); Calcium,Total 8.9 mg/dL (8.5-10.1); Chloride 99 mmol/L (98-107); Creatinine, Serum 0.38 mg/dL (0.55-1.02); EST Glomerular Filtration Rate 177 mL/min (>60); Est Glom Filt Rate - Afr Amer 214 mL/min (>60); Glucose 109 mg/dL (74-106); Sodium Level 140 mmol/L (136-145)
[2018-07-14] MEDS: Budesonide Respules 0.5 MG/2 ML AMPUL.NEB. INHALATION (07:32)
[2018-07-14] MEDS: Ipratropium/Albuterol Sulfate 3 ML AMPUL.NEB INHALATION ×3 (07:32→19:30)
[2018-07-14 07:56] LABS: Bedside Glucose 114 mg/dL (70-110)
--- NOTE | 2018-07-14 08:32 | PN_ITS ---
Patient Problems: Active and Suspected Problems SBO (small bowel obstruction) (Acute) Acute electrocardiogram changes (Acute) Subjective: Chief complaint: Follow-up after admission for small bowel obstruction status post laparoscopic exploration and laparoscopic lysis of adhesions. Patient seen and examined. No acute events overnight. Today, she is feeling significantly better. Abdominal pain is almost resolved, still having discomfort from the surgery. No nausea vomiting. She has been passing flatus. Vital signs are stable. - Physical Exam General: Alert, Oriented x3, Cooperative, No apparent distress HEENT: Atraumatic, PERRLA, EOMI, Normocephalic Oral: Moist Mucosa, No Gingival or Mucosal Lesions/ Ulcerations Neck: Supple, No JVD, Negative Carotid Bruits, Trachea Midline, Thyroid Normal Size and Texture Lungs: Clear to auscultation, No rhonchi, No wheeze, No rales, Diminished Cardiovascular: Regular rate, Regular Rhythm, Normal S1, Normal S2, PMI Normal Abdomen: Bowel Sounds Present, Soft, Non-Distended, No Hepato-splenomegaly, - - Minimal tenderness. Extremities: No clubbing, No cyanosis, No edema Skin: No rashes, No breakdown Lymphatic: No Cervical, Supraclavicular, or Inguinal Adenopathy Neurological: Cranial nerves II-XII grossly intact, Neuro grossly intact Psych/Mental Status: Normal Affect, Appropriate Vital Signs Temp Pulse Resp BP Pulse Ox 97.7 F L 82 16 123/76 H 95 07/14/18 04:00 07/14/18 07:33 07/14/18 07:33 07/14/18 04:00 07/14/18 07:33 Oxygen Flow Rate (L/min) 1 Oxygen Delivery Method Room Air Weight: 176 lb 5.917 oz Body Mass Index (BMI) 28.3 Intake and Output for Last 24 Hours 07/12/18 07/13/18 07/14/18 23:59 23:59 22:59 Intake Total 2487 / 2487 2135 / 2135 601 / 601 Output Total 1325 / 1325 Balance 1162 / 1162 2135 / 2135 601 / 601 Microbiology Past 72 Hours 07/09/18 22:14 Blood Culture - Preliminary Blood Culture (Wb) - Anticubital Left No growth in 48 hours. 07/09/18 22:02 Blood Culture - Preliminary Blood Culture (Wb) - Right Forearm No growth in 48 hours. 07/09/18 22:50 Urine Culture - Final Urine Catheter - Barrera Culture exhibits no growth. Laboratory Tests Past 24 Hrs 07/14/18 06:00 Sodium 140 Potassium 3.0 L Chloride 99 Carbon Dioxide 34.0 H Anion Gap 7 BUN 4 L Creatinine 0.38 L Estim Creat Clear Calc 44.80 Est GFR (MDRD) Af Amer 214 Est GFR (MDRD) Non-Af 177 BUN/Creatinine Ratio 10.6 Glucose 109 H Calcium 8.9 POC Glucose 07/14/18 07/13/18 07/13/18 07:50 22:07 16:41 POC Glucose 114 H 149 H 124 H 07/13/18 11:42 POC Glucose 129 H Medical Necessity - Tobacco Use Smoking Status: Never smoker Tobacco Use: Non-smoker Assessment/Plan All Active Problems SBO (small bowel obstruction) (Acute) Acute electrocardiogram changes (Acute) This is a 78 years old female patient presented to the emergency room because of abdominal pain with nausea and vomiting and she was found to have small bowel obstruction, underwent laparoscopic exploration and laparoscopic lysis of adhesions, also found to have EKG changes without symptoms of chest pain shortness of breath. #1 small bowel obstruction: Status post laparoscopic exploration and laparoscopic lysis of adhesions, postoperative day 4. Tolerating diet, symptoms are significantly better. She has been passing flatus. Her vital signs are stable, no more tachycardia. Potassium still low but improved. General surgery on the case. Plan to replace potassium, repeat potassium tomorrow morning, ambulate, awaiting insurance approval for [facility] to [facility]. #2 EKG changes: Without chest pain or shortness of breath. Her troponin is negative x3. 2D echocardiogram revealed ejection fraction of 75%, stage I diastolic dysfunction and mild aortic stenosis. ACS ruled out. #3 hypokalemia: Today's potassium is 3 mEq/L. She is on oral K Dur twice daily. Today's potassium is still low, plan to add IV potassium chloride, repeat potassium tomorrow morning. #4 type 2 diabetes mellitus: Blood sugar stable. Continue sliding scale. #5 hypertension: Blood pressure slightly elevated, continue Norvasc, Altace and as needed IV hydralazine, she is on IV metoprolol as well. #6 hyperlipidemia: Continue statins. #7 chronic asthma: Clinically stable, pulse ox is maintained on room air. Continue DuoNeb, albuterol as needed and Pulmicort twice daily. #8 DVT prophylaxis: SCDs.. This note was generated with [employer] dictation software. It may contain incorrect words, spelling, and punctuation that were not noted in checking the note before signing. Code Visit Inpatient E&M: 57418 Subs Hosp L2
[2018-07-14] MEDS: Ramipril 10 MG Capsule PO (09:37)
[2018-07-14] MEDS: Pantoprazole Sodium 40 MG Tablet PO (09:37)
[2018-07-14] MEDS: hydroCHLOROthiazide 25 MG Tablet PO (09:38)
[2018-07-14] MEDS: Menthol/Lanolin/Calamine/Znox 113 GM Tube 1 APPLIC TOPICAL (09:38)
[2018-07-14] MEDS: amLODIPine 10 MG Tablet PO (09:38)
[2018-07-14] MEDS: Atorvastatin Calcium 40 MG Tablet PO (09:38)
[2018-07-14] MEDS: Metoprolol(XL)Succ 100 MG Tablet PO (09:39)
--- NOTE | 2018-07-14 09:43 | PCM.PN.SRG ---
Patient Problems: Active and Suspected Problems SBO (small bowel obstruction) (Acute) Acute electrocardiogram changes (Acute) - Physical Exam General: Alert, Oriented x3 Lungs: Clear to auscultation, Normal air movement Cardiovascular: Regular rate, Regular Rhythm Abdomen: Bowel Sounds Present, Soft, Non Tender Vital Signs Temp Pulse Resp BP Pulse Ox 97.7 F L 101 H 16 123/76 H 95 07/14/18 04:00 07/14/18 09:39 07/14/18 07:33 07/14/18 04:00 07/14/18 07:33 Oxygen Flow Rate (L/min) 1 Oxygen Delivery Method Room Air Weight: 80 kg Body Mass Index (BMI) 28.3 Intake and Output for Last 24 Hours 07/12/18 07/13/18 07/14/18 23:59 23:59 22:59 Intake Total 2487 / 2487 2135 / 2135 601 / 601 Output Total 1325 / 1325 Balance 1162 / 1162 2135 / 2135 601 / 601 Microbiology Past 72 Hours 07/09/18 22:14 Blood Culture - Preliminary Blood Culture (Wb) - Anticubital Left No growth in 48 hours. 07/09/18 22:02 Blood Culture - Preliminary Blood Culture (Wb) - Right Forearm No growth in 48 hours. 07/09/18 22:50 Urine Culture - Final Urine Catheter - Barrera Culture exhibits no growth. Laboratory Tests Past 24 Hrs 07/14/18 06:00 Sodium 140 Potassium 3.0 L Chloride 99 Carbon Dioxide 34.0 H Anion Gap 7 BUN 4 L Creatinine 0.38 L Estim Creat Clear Calc 44.80 Est GFR (MDRD) Af Amer 214 Est GFR (MDRD) Non-Af 177 BUN/Creatinine Ratio 10.6 Glucose 109 H Calcium 8.9 POC Glucose 07/14/18 07/13/18 07/13/18 07:50 22:07 16:41 POC Glucose 114 H 149 H 124 H 07/13/18 11:42 POC Glucose 129 H Medical Necessity - Tobacco Use Smoking Status: Never smoker Tobacco Use: Non-smoker Assessment/Plan All Active Problems SBO (small bowel obstruction) (Acute) Acute electrocardiogram changes (Acute) small bowel obstruction - POD # 5 status post laparoscopic exploration with lysis of adhesions Patient tolerating liquids, will advance as tolerated Patient with improved respiratory effort. Continue pulmonary toilet Will start clears if patient tolerating - will advance slowly. Do not feel need for antibiotics currently area did we'll follow patient SCDs and Lovenox for DVT prophylaxis. Patient debilitated - PT and OT continuing, anticipate patient will need transitional care for strengthening/rehab prior to being sent home
[2018-07-14 11:40] LABS: Bedside Glucose 113 mg/dL (70-110)
[2018-07-14] MEDS: Glucerna Shake 120 ML LIQUID PO (17:01)
[2018-07-14 17:41] LABS: Bedside Glucose 115 mg/dL (70-110)
[2018-07-14 22:26] LABS: Bedside Glucose 152 mg/dL (70-110)
[2018-07-15] VITALS (10 sets, daily range): BP systolic 123–128; BP diastolic 69–81; PULSE 88–101; RESP 16–24; TEMP 36.7–37.1; O2SAT 96–99
[2018-07-15] MEDS: Lactated Ringers 1,000 ML 50 ML IV (00:21)
[2018-07-15 06:22] LABS: Potassium 3.7 mmol/L (3.5-5.1)
[2018-07-15 06:40] LABS: Bedside Glucose 120 mg/dL (70-110)
[2018-07-15] MEDS: Ipratropium/Albuterol Sulfate 3 ML AMPUL.NEB INHALATION (07:14)
[2018-07-15] MEDS: Budesonide Respules 0.5 MG/2 ML AMPUL.NEB. INHALATION (07:14)
[2018-07-15] MEDS: Menthol/Lanolin/Calamine/Znox 113 GM Tube 1 APPLIC TOPICAL (08:44)
[2018-07-15] MEDS: Pantoprazole Sodium 40 MG Tablet PO (08:45)
[2018-07-15] MEDS: Atorvastatin Calcium 40 MG Tablet PO (08:45)
[2018-07-15] MEDS: amLODIPine 10 MG Tablet PO (08:47)
[2018-07-15] MEDS: hydroCHLOROthiazide 25 MG Tablet PO (08:47)
[2018-07-15] MEDS: Ramipril 10 MG Capsule PO (08:47)
[2018-07-15] MEDS: Metoprolol(XL)Succ 100 MG Tablet PO (08:48)
--- NOTE | 2018-07-15 10:22 | CASEMGMT ---
Addendum entered by Angela Waterman 07/15/18 10:31: Spoke with [facility] and they will keep patient's on file and if HHC is need at discharge from TCU, [facility] would be happy to follow the patient. Original Note: KRISTEN DAY received message from [facility] that HHC was arranged for patient with [facility] [phone]. Patient was approved for TCU. KRISTEN DAY called [facility] to update regarding discharge plans.
--- NOTE | 2018-07-15 10:30 | CASEMGMT ---
Social Work Note SW met with pt to confirm plans. Pt confirms that she wishes to discharge to TCU. SW explained to pt that she is doing well with therapy (walking 410ft) and she may get denied for SNF. Pt states that she wishes to try to still go to TCU. SW explained that pt will need pre-cert. Pt states understanding. SW placed a call to Maya in TCU. Per Maya she has a bed for pt and will submit for pre-cert. CLARISSE spoke with Maya in TCU who states pre-cert has been obtained and pt is able to discharge today. CLARISSE updated pt, KRISTEN Loo and physician of discharge to TCU. Plan: TCU today Angela Etienne MARKETING INFORMATION MANAGER, EMULSIFICATION OPERATOR
--- NOTE | 2018-07-15 11:07 | PCM.TXEXTCAR ---
- Diet 07/13/18 07:57 Diet: No Gastric Stimulus/Low Residue Is pt able to select menu?: Yes Diet Comments: No Carbonated beverages - Routine Orders/Code Status Code Status: Full Code - Wound(s) ABD Wound Type: Surgical Incision Dressing Change: Dry Sterile Dressing - Therapies Physical Therapy: Eval and Treat Occupational Therapy: Eval and Treat Speech Therapy: Eval and Treat - Allergies/Procedures Done in Hospital Allergies/Adverse Reactions: Allergies Penicillins [PCN] Allergy (Verified 07/04/18 19:44) Rash albuterol [From Ventolin HFA] Adverse Reaction (Verified 07/04/18 19:44) Other - Type of Care/Length of Stay Estimated LOS: Convalescent Care Less Than 30 days Type of Care Needed: Skilled Rehab Potential: Good Prognosis: Good - Additional Orders/Day of Discharge Day of Discharge: 07/15/18 - Dietary and Speech Recommendations Dietitian Recommendations/Changes: Please check current wt. Will d/c ONS medpass r/t pt refusals. - Follow Up Care Primary Care Physician: Meryl Mott MD [Primary Care Provider] - Please Follow Up With: Maxim Sultana MD - call When: to be seen in 1-2 weeks after discharge, please call for date and time
--- NOTE | 2018-07-15 11:09 | DS.PCM_ITS ---
Discharge Date and Diagnosis Date of Admission: 07/04/18 Date of Discharge: 07/15/18 - Primary Discharge Diagnosis Active and Suspected Problems SBO (small bowel obstruction) (Acute) Acute electrocardiogram changes (Acute) - Secondary Discharge Diagnosis Chronic Problems HTN (hypertension) (Chronic) HLD (hyperlipidemia) (Chronic) Diabetes mellitus, type II (Chronic) Hospital Course and Treatment Summary of Care Provided: This is a 78 years old female patient presented with abdominal pain associated with nausea and vomiting. An assessment of small bowel obstruction made admitted to regular nursing floor for further management 1. Small bowel obstruction secondary to adhesions. Patient underwent laparoscopic exploration and laparoscopic lysis of adhesions, 07/09/[address] Callejas. Plan is for patient to follow-up with 2 weeks following her discharge 1. EKG changes. Echo demonstrated preserved ejection fraction with EF of 75% stage I diastolic dysfunction and mild aortic stenosis cardiac enzymes remain negative patient did not experience any chest pain 3. Hypokalemia corrected per protocol 4. Diabetes mellitus type 2 5. Essential hypertension 6. Dyslipidemia 7. Mild intermittent asthma 8. DVT prophylaxis SCDs 9. Physical deconditioning requested for PT OT eval patient was discharged to a retirement facility to continue with his therapy - Physical Exam General: Alert HEENT: Atraumatic Neck: Supple Lungs: Diminished Cardiovascular: Regular rate Neurological: Neuro grossly intact Vital Signs Temp Pulse Resp BP Pulse Ox 98.6 F 100 24 H 128/69 H 98 07/15/18 07:45 07/15/18 09:01 07/15/18 07:45 07/15/18 07:45 07/15/18 10:41 Oxygen Flow Rate (L/min) 1 Oxygen Delivery Method Room Air Weight: 80 kg Body Mass Index (BMI) 28.3 Intake and Output for Last 24 Hours 07/14/18 07/14/18 07/15/18 00:59 23:59 23:59 Intake Total 673 / 673 Output Total Balance 673 / 673 Microbiology Past 72 Hours 07/09/18 22:14 Blood Culture - Final Blood Culture (Wb) - Anticubital Left No growth in 5 days. 07/09/18 22:02 Blood Culture - Final Blood Culture (Wb) - Right Forearm No growth in 5 days. 07/09/18 22:50 Urine Culture - Final Urine Catheter - Barrera Culture exhibits no growth. Laboratory Tests Past 24 Hrs 07/15/18 05:45 Potassium 3.7 POC Glucose 07/15/18 07/14/18 07/14/18 06:28 22:15 17:11 POC Glucose 120 H 152 H 115 H 07/14/18 11:35 POC Glucose 113 H Discharge Diet: No Restrictions Discharge Activity: Return to Normal Activity, May not drive while taking narcotic pain medications. Home Medications: Medications to take at Discharge Albuterol IH (ProAir) [Proair Hfa] 2 puff INHALATION Q4H PRN PRN 07/04/18 Aspirin E.C. [Ecotrin] 325 mg PO DAILY 07/04/18 Atorvastatin Calcium [Lipitor] 40 mg PO DAILY 07/04/18 Budesonide/Formoterol 160/4.5 [Symbicort 160/4.5 Mcg Inhaler (SP)] 2 puff INHALATION BID PRN 07/04/18 Felodipine [Plendil] 10 mg PO DAILY 07/04/18 Hydrochlorothiazide [Hctz] 25 mg PO DAILY 07/04/18 Metoprolol Succinate 100 mg PO DAILY 07/04/18 Potassium Chloride 10 meq PO DAILY 07/04/18 Ramipril 10 mg PO DAILY 07/04/18 Insulin Lispro [Humalog KwikPen] See Protocol SC ACHS insuln.pen 07/15/18 Ipratropium/Albuterol Sulfate [Duoneb] 3 ml INHALATION Q6HWA.RT ampul.neb 07/15/18 Magnesium Hydroxide [Milk Of Magnesia] 30 ml PO DAILY PRN PRN udc 07/15/18 Menthol/Lanolin/Calamine/Znox [Calmoseptine Ointment] 1 applic TOPICAL BID tube 07/15/18 Pantoprazole Sodium [Protonix] 40 mg PO DAILY tablet 07/15/18 Phenol/Sodium Phenolate [Chloraseptic (BKC)] 5 spray MM Q2H PRN PRN ml 07/15/18 Primary Care Physician: Meryl Mott MD [Primary Care Provider] - Please Follow Up With: Maxim Sultana MD - call When: to be seen in 1-2 weeks after discharge, please call for date and time Disposition: Residential facility Minutes spent on discharge:: 35 Patient Condition:: Stable Medical Necessity - Tobacco Use Smoking Status: Never smoker Tobacco Use: Non-smoker Meaningful Use Info Meaningful Use Diagnoses (Choose all that apply): None applicable Code Visit Inpatient E&M: 26043 Disch Hosp
[2018-07-15 11:51] LABS: Bedside Glucose 109 mg/dL (70-110)
--- NOTE | 2018-07-15 17:50 | PCM.PN.SRG ---
Subjective: passing flatus, small bowel movement, appetite-fair - Physical Exam General: Alert, Oriented x3 Lungs: Clear to auscultation, Normal air movement Cardiovascular: Regular rate, Regular Rhythm Abdomen: Bowel Sounds Present, Soft, Non Tender Vital Signs Temp Pulse Resp BP Pulse Ox 98.1 F 95 24 H 125/72 H 99 07/15/18 12:05 07/15/18 12:05 07/15/18 12:05 07/15/18 12:05 07/15/18 12:05 Oxygen Flow Rate (L/min) 1 Oxygen Delivery Method Room Air Weight: 80 kg Body Mass Index (BMI) 28.3 Intake and Output for Last 24 Hours 07/14/18 07/14/18 07/15/18 00:59 23:59 23:59 Intake Total 673 / 673 Output Total Balance 673 / 673 Microbiology Past 72 Hours 07/09/18 22:14 Blood Culture - Final Blood Culture (Wb) - Anticubital Left No growth in 5 days. 07/09/18 22:02 Blood Culture - Final Blood Culture (Wb) - Right Forearm No growth in 5 days. Laboratory Tests Past 24 Hrs 07/15/18 05:45 Potassium 3.7 POC Glucose 07/15/18 07/15/18 07/14/18 11:42 06:28 22:15 POC Glucose 109 120 H 152 H Medical Necessity - Tobacco Use Smoking Status: Never smoker Tobacco Use: Non-smoker Assessment/Plan All Active Problems SBO (small bowel obstruction) (Acute) Acute electrocardiogram changes (Acute) small bowel obstruction - POD # 6 status post laparoscopic exploration with lysis of adhesions Patient tolerating solid food appetite fair Patient with improved respiratory effort. Continue pulmonary toilet SCDs and Lovenox for DVT prophylaxis. Patient debilitated - PT and OT continuing, anticipate patient will need transitional care for strengthening/rehab prior to being sent home
== END 2018-07-15 12:38 | disposition skilled nursing facility (03) | DRG 337 ==
LOC: ED 07-05 00:04 → MS3 07-05 00:39
PROVIDERS: Family Medicine; Hospitalist; Surgery; Admitting Provider Family Medicine; Emergency Provider Emergency Medicine; Family Provider Internal Medicine; PCP Internal Medicine; Visit Provider Internal Medicine
PROC: 0DN84ZZ Release Small Intestine, Percutaneous Endoscopic Approach (ICD-10-PCS; CPT 44202; principal; 2018-07-09 07:10)
DX: K56.51 Intestinal adhesions [bands], with partial obstruction (principal); E11.9 Type 2 diabetes mellitus without complications; E78.5 Hyperlipidemia, unspecified; K57.30 Diverticulosis of large intestine without perforation or abscess without bleeding; I10 Essential (primary) hypertension; E87.6 Hypokalemia; J45.20 Mild intermittent asthma, uncomplicated; R94.31 Abnormal electrocardiogram [ECG] [EKG]; I35.0 Nonrheumatic aortic (valve) stenosis; Z79.84 Long term (current) use of oral hypoglycemic drugs
CPT/HCPCS: 36415; 71045; 74018; 74019; 74177; 80048; 80053; 80076; 81001; 82962; 83605; 83690; 83735; 84100; 84132; 84484; 85025; 87040; 87086; 93005; 93306; 94640; 97110; 97162; 97530; 97802; 99285; J7030; J7040; J7120; Q9967; A4216; J2405; J3490

== ENCOUNTER 2018-07-15 12:42 | Inpatient (IN) | payer OTHER, MEDICARE, SELFPAY ==
[2018-07-15 13:34] VITALS: BP 116/70; PULSE 83; RESP 16; TEMP 36.9; O2SAT 97; BMI 27.1; BMI 27.2
--- NOTE | 2018-07-15 13:42 | NURSING ---
pt arrived from [facility] via WC at 1242
[2018-07-15 15:42] VITALS: BP 122/78; PULSE 85; RESP 16; TEMP 36.7; O2SAT 98
[2018-07-15 16:50] LABS: Bedside Glucose 113 mg/dL (70-110)
[2018-07-15] MEDS: Menthol/Lanolin/Calamine/Znox 113 GM Tube 1 APPLIC TOPICAL (17:29)
--- NOTE | 2018-07-15 20:18 | PCM.HP.STD ---
Problem List (1) Abdominal pain Status: Acute (2) Nausea & vomiting Status: Acute (3) Debility Status: Acute (4) Asthma Status: Chronic (5) Hypokalemia Status: Acute (6) SBO (small bowel obstruction) Status: Acute (7) HTN (hypertension) Status: Chronic Qualifiers: (8) HLD (hyperlipidemia) Status: Chronic Qualifiers: (9) Diabetes mellitus, type II Status: Chronic Qualifiers: History of Present Illness Date of Admission: 07/15/18 Chief Complaint: Here for rehabilitation, strengthening, prior to discharge home alone. The patient is a 78 year old Female with below past medical history presented to [facility] Emergency Department 07/04/2018 with abdominal pain. 07/04/2018 CT abdomen/pelvis showed small bowel obstruction, ascites, diverticulosis of colon. Nausea, vomiting, abdominal pain x 2 days. Constipation. Morphine, Zofran IV given. CBC, CMP okay, Glucose 147. UA negative, Troponin negative, Lactic Acid 1.9. EKG sinus rhythm, anterior, lateral, inferior T wave inversions, T wave inversions more pronounced compared to previous. NG tube. 07/04/2018 Admit to Hospital. NPO, NG suction, IV Fluids. Famotidine IV, Pain management. Cycle cardiac enzymes. 07/05/2018 Dr. Sultana consulted, recommended conservative management at first, cited 70% on small bowel obstruction resolved without invasive intervention. 07/05/2018 Echo Mild concentric Left ventricular Hypertrophy. EF 75% Stage 1 diastolic dysfunction. Right ventricular systolic pressure 32mm HG. 07/09/2018 Dr. Sultana performed laparoscopic lysis of adhesions. Cardiac enzymes negative. Hypokalemia corrected per protocol. Patient debilitated, 11 days in hospital, 8 days NPO. 07/15/2018 Admit to TCU with debility, here for rehabilitation, strengthening, prior to discharge home alone. 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 Past Medical History Past Medical History (Chronic Problems): Chronic Problems HTN (hypertension) (Chronic) HLD (hyperlipidemia) (Chronic) Diabetes mellitus, type II (Chronic) Asthma (Chronic) Allergies Penicillins [PCN] Allergy (Verified 07/04/18 19:44) Rash albuterol [From Ventolin HFA] Adverse Reaction (Verified 07/04/18 19:44) Other Home Medications: Ambulatory Orders Medication Instructions Recorded Albuterol IH (ProAir) [Proair Hfa] 2 puff INHALATION Q4H PRN PRN 07/04/18 Aspirin E.C. [Ecotrin] 325 mg PO DAILY 07/04/18 Atorvastatin Calcium [Lipitor] 40 mg PO DAILY 07/04/18 Budesonide/Formoterol 160/4.5 2 puff INHALATION BID PRN 07/04/18 [Symbicort 160/4.5 Mcg Inhaler (SP)] Felodipine [Plendil] 10 mg PO DAILY 07/04/18 Hydrochlorothiazide [Hctz] 25 mg PO DAILY 07/04/18 Metoprolol Succinate 100 mg PO DAILY 07/04/18 Potassium Chloride 10 meq PO DAILY 07/04/18 Ramipril 10 mg PO DAILY 07/04/18 Insulin Lispro [Humalog KwikPen] See Protocol SC ACHS 07/15/18 Ipratropium/Albuterol Sulfate 3 ml INHALATION Q6HWA.RT 07/15/18 [Duoneb] Magnesium Hydroxide [Milk Of 30 ml PO DAILY PRN PRN udc 07/15/18 Magnesia] Menthol/Lanolin/Calamine/Znox 1 applic TOPICAL BID 07/15/18 [Calmoseptine Ointment] Pantoprazole Sodium [Protonix] 40 mg PO DAILY 07/15/18 Phenol/Sodium Phenolate 5 spray MM Q2H PRN PRN ml 07/15/18 [Chloraseptic (BKC)] Surgical History: arthroscopy, knee - Right., tonsillectomy, - - Fibroid myomectomy, bilateral hand surgery, laparoscopic lysis of adhesions. 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 Paternal History Items: - - Patient notes a maternal and paternal family history of heart disease with [place] in her father at age 45 and in her mother at age 87 as well as a history of diabetes in both. Review of Systems Constitutional: Denies: Chills, Fever, Weight Change HEENT: Denies: Head Aches, Sinus Congestion, Sinus Drainage Cardiovascular: Denies: Chest Pain, Palpitations Respiratory: Denies: Cough, Shortness of breath at rest, Sputum production Gastrointestinal: Denies: Abdominal Pain, Nausea, Vomiting Genitourinary: Denies: Dysuria Musculoskeletal: Denies: Joint Pain, Joint Tenderness Skin: Denies: Rash, Wounds Neurological: Denies: Numbness, Tingling, Focal weakness Psychiatric: Denies: Anxiety, Depression, Homicidal Ideations, Suicidal Ideations Hematologic/ Lymphatic: Denies: Easy Bruising, Easy Bleeding VTE Information - Inpt Only VTE Present on Admission: No VTE Mechan Device Prophylaxis: Knee High TURNER Hose VTE Pharm Prophylaxis ordered?: Yes Patient Problems: Active and Suspected Problems Abdominal pain (Acute) Nausea & vomiting (Acute) Debility (Acute) Hypokalemia (Acute) - Physical Exam General: Alert, Oriented x3, Cooperative HEENT: Atraumatic, PERRLA, EOMI, Normocephalic Neck: Supple, No JVD, Negative Carotid Bruits Lungs: Clear to auscultation, Normal air movement Cardiovascular: Regular rate, No murmurs Abdomen: Bowel Sounds Present, Soft, Non Tender Extremities: No edema, Capillary Refill Less than 3 Seconds Skin: No rashes, No breakdown Musculoskeletal: No Tenderness to Palpation of Joints or Extremities Neurological: Cranial nerves II-XII grossly intact Psych/Mental Status: Normal Affect, Appropriate Vital Signs Temp Pulse Resp BP Pulse Ox 98.1 F 85 16 122/78 H 98 07/15/18 15:42 07/15/18 15:42 07/15/18 15:42 07/15/18 15:42 07/15/18 15:42 Oxygen Delivery Method Room Air Weight: 76.374 kg Body Mass Index (BMI) 27.1 Intake and Output for Last 24 Hours 07/14/18 07/14/18 07/15/18 00:59 23:59 23:59 Intake Total 480 / 480 Balance 480 / 480 POC Glucose 07/15/18 16:42 POC Glucose 113 H Assessment/Plan All Active Problems SBO (small bowel obstruction) (Acute) Acute electrocardiogram changes (Acute) Abdominal pain (Acute) Nausea & vomiting (Acute) Debility (Acute) Hypokalemia (Acute) 78 year old female with below past medical history hospitalized for small bowel obstruction, requiring laparoscopic lysis of adhesions 07/09/[address] Sultana, admitted with debility, here for rehabilitation, strengthening, prior to discharge home alone. Debility - PT/OT. Pain - Tylenol 1000MG Q8H PRN mild pain. Bowel - Miralax 17GM daily, Senna/colace 1 tablet BID, Dulcolax 10MG PO daily PRN. Pneumonia vaccination - Administer Prevnar 13 and/or Pneumovax 23 as necessary. DVT prophylaxis - Lovenox 40MG SC daily. Asthma - Duoneb 3ML Q6H, Albuterol 2 puffs Q4H PRN. Hypertension - Metoprolol succinate 100MG daily, Ramipril 10MG daily, Amlodipine 10MG daily, HCTZ 25MG daily. CV prophylaxis - Aspirin 325MG daily. Hyperlipidemia - Atorvastatin 40MG QHS. Skin irritation - Calmoseptine BID bilateral buttocks. GERD - Pantoprazole 40MG daily. Sore throat - Chloraseptic 5 spray Q2H PRN. Hypokalemia - K-Dur 10MEQ daily.
--- NOTE | 2018-07-15 20:25 | HP.PCM_ITS ---
Problem List (1) Abdominal pain Status: Acute (2) Nausea & vomiting Status: Acute (3) Debility Status: Acute (4) Asthma Status: Chronic (5) Hypokalemia Status: Acute (6) SBO (small bowel obstruction) Status: Acute (7) HTN (hypertension) Status: Chronic Qualifiers: (8) HLD (hyperlipidemia) Status: Chronic Qualifiers: (9) Diabetes mellitus, type II Status: Chronic Qualifiers: History of Present Illness Date of Admission: 07/15/18 Chief Complaint: Here for rehabilitation, strengthening, prior to discharge home alone. The patient is a 78 year old Female with below past medical history presented to [facility] Emergency Department 07/04/2018 with abdominal pain. 07/04/2018 CT abdomen/pelvis showed small bowel obstruction, ascites, diverticulosis of colon. Nausea, vomiting, abdominal pain x 2 days. Constipation. Morphine, Zofran IV given. CBC, CMP okay, Glucose 147. UA negative, Troponin negative, Lactic Acid 1.9. EKG sinus rhythm, anterior, lateral, inferior T wave inversions, T wave inversions more pronounced compared to previous. NG tube. 07/04/2018 Admit to Hospital. NPO, NG suction, IV Fluids. Famotidine IV, Pain management. Cycle cardiac enzymes. 07/05/2018 Dr. Sultana consulted, recommended conservative management at first, cited 70% on small bowel obstruction resolved without invasive intervention. 07/05/2018 Echo Mild concentric Left ventricular Hypertrophy. EF 75% Stage 1 diastolic dysfunction. Right ventricular systolic pressure 32mm HG. 07/09/2018 Dr. Sultana performed laparoscopic lysis of adhesions. Cardiac enzymes negative. Hypokalemia corrected per protocol. Patient debilitated, 11 days in hospital, 8 days NPO. 07/15/2018 Admit to TCU with debility, here for rehabilitation, strengthening, prior to discharge home alone. 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 Past Medical History Past Medical History (Chronic Problems): Chronic Problems HTN (hypertension) (Chronic) HLD (hyperlipidemia) (Chronic) Diabetes mellitus, type II (Chronic) Asthma (Chronic) Allergies Penicillins [PCN] Allergy (Verified 07/04/18 19:44) Rash albuterol [From Ventolin HFA] Adverse Reaction (Verified 07/04/18 19:44) Other Home Medications: Ambulatory Orders Medication Instructions Recorded Albuterol IH (ProAir) [Proair Hfa] 2 puff INHALATION Q4H PRN PRN 07/04/18 Aspirin E.C. [Ecotrin] 325 mg PO DAILY 07/04/18 Atorvastatin Calcium [Lipitor] 40 mg PO DAILY 07/04/18 Budesonide/Formoterol 160/4.5 2 puff INHALATION BID PRN 07/04/18 [Symbicort 160/4.5 Mcg Inhaler (SP)] Felodipine [Plendil] 10 mg PO DAILY 07/04/18 Hydrochlorothiazide [Hctz] 25 mg PO DAILY 07/04/18 Metoprolol Succinate 100 mg PO DAILY 07/04/18 Potassium Chloride 10 meq PO DAILY 07/04/18 Ramipril 10 mg PO DAILY 07/04/18 Insulin Lispro [Humalog KwikPen] See Protocol SC ACHS 07/15/18 Ipratropium/Albuterol Sulfate 3 ml INHALATION Q6HWA.RT 07/15/18 [Duoneb] Magnesium Hydroxide [Milk Of 30 ml PO DAILY PRN PRN udc 07/15/18 Magnesia] Menthol/Lanolin/Calamine/Znox 1 applic TOPICAL BID 07/15/18 [Calmoseptine Ointment] Pantoprazole Sodium [Protonix] 40 mg PO DAILY 07/15/18 Phenol/Sodium Phenolate 5 spray MM Q2H PRN PRN ml 07/15/18 [Chloraseptic (BKC)] Surgical History: arthroscopy, knee - Right., tonsillectomy, - - Fibroid myomectomy, bilateral hand surgery, laparoscopic lysis of adhesions. 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 Paternal History Items: - - Patient notes a maternal and paternal family history of heart disease with [place] in her father at age 45 and in her mother at age 87 as well as a history of diabetes in both. Review of Systems Constitutional: Denies: Chills, Fever, Weight Change HEENT: Denies: Head Aches, Sinus Congestion, Sinus Drainage Cardiovascular: Denies: Chest Pain, Palpitations Respiratory: Denies: Cough, Shortness of breath at rest, Sputum production Gastrointestinal: Denies: Abdominal Pain, Nausea, Vomiting Genitourinary: Denies: Dysuria Musculoskeletal: Denies: Joint Pain, Joint Tenderness Skin: Denies: Rash, Wounds Neurological: Denies: Numbness, Tingling, Focal weakness Psychiatric: Denies: Anxiety, Depression, Homicidal Ideations, Suicidal Ideations Hematologic/ Lymphatic: Denies: Easy Bruising, Easy Bleeding VTE Information - Inpt Only VTE Present on Admission: No VTE Mechan Device Prophylaxis: Knee High TURNER Hose VTE Pharm Prophylaxis ordered?: Yes Patient Problems: Active and Suspected Problems Abdominal pain (Acute) Nausea & vomiting (Acute) Debility (Acute) Hypokalemia (Acute) - Physical Exam General: Alert, Oriented x3, Cooperative HEENT: Atraumatic, PERRLA, EOMI, Normocephalic Neck: Supple, No JVD, Negative Carotid Bruits Lungs: Clear to auscultation, Normal air movement Cardiovascular: Regular rate, No murmurs Abdomen: Bowel Sounds Present, Soft, Non Tender Extremities: No edema, Capillary Refill Less than 3 Seconds Skin: No rashes, No breakdown Musculoskeletal: No Tenderness to Palpation of Joints or Extremities Neurological: Cranial nerves II-XII grossly intact Psych/Mental Status: Normal Affect, Appropriate Vital Signs Temp Pulse Resp BP Pulse Ox 98.1 F 85 16 122/78 H 98 07/15/18 15:42 07/15/18 15:42 07/15/18 15:42 07/15/18 15:42 07/15/18 15:42 Oxygen Delivery Method Room Air Weight: 76.374 kg Body Mass Index (BMI) 27.1 Intake and Output for Last 24 Hours 07/14/18 07/14/18 07/15/18 00:59 23:59 23:59 Intake Total 480 / 480 Balance 480 / 480 POC Glucose 07/15/18 16:42 POC Glucose 113 H Assessment/Plan All Active Problems SBO (small bowel obstruction) (Acute) Acute electrocardiogram changes (Acute) Abdominal pain (Acute) Nausea & vomiting (Acute) Debility (Acute) Hypokalemia (Acute) 78 year old female with below past medical history hospitalized for small bowel obstruction, requiring laparoscopic lysis of adhesions 07/09/[address] Sultana, admitted with debility, here for rehabilitation, strengthening, prior to discharge home alone. * Debility - PT/OT. * Pain - Tylenol 1000MG Q8H PRN mild pain. * Bowel - Miralax 17GM daily, Senna/colace 1 tablet BID, Dulcolax 10MG PO daily PRN. * Pneumonia vaccination - Administer Prevnar 13 and/or Pneumovax 23 as necessary. * DVT prophylaxis - Lovenox 40MG SC daily. * Asthma - Duoneb 3ML Q6H, Albuterol 2 puffs Q4H PRN. * Hypertension - Metoprolol succinate 100MG daily, Ramipril 10MG daily, Amlodipine 10MG daily, HCTZ 25MG daily. * CV prophylaxis - Aspirin 325MG daily. * Hyperlipidemia - Atorvastatin 40MG QHS. * Skin irritation - Calmoseptine BID bilateral buttocks. * GERD - Pantoprazole 40MG daily. * Sore throat - Chloraseptic 5 spray Q2H PRN. * Hypokalemia - K-Dur 10MEQ daily.
[2018-07-15 21:41] LABS: Bedside Glucose 110 mg/dL (70-110)
[2018-07-16 05:45] VITALS: BP 142/83; PULSE 86
[2018-07-16] MEDS: Metoprolol(XL)Succ 100 MG Tablet PO (05:45)
[2018-07-16] MEDS: Senna/Docusate Sodium 1 Tablet PO ×2 (05:46→17:58)
[2018-07-16] MEDS: hydroCHLOROthiazide 25 MG Tablet PO (05:46)
[2018-07-16] MEDS: amLODIPine 10 MG Tablet PO (05:46)
[2018-07-16] MEDS: Pantoprazole Sodium 40 MG Tablet PO (05:46)
[2018-07-16] MEDS: Ramipril 10 MG Capsule PO (05:46)
[2018-07-16] MEDS: Menthol/Lanolin/Calamine/Znox 113 GM Tube 1 APPLIC TOPICAL ×2 (05:47→18:01)
[2018-07-16 06:19] LABS: Absolute Lymphocyte Count 1.64 X10^3/ul (0.83-4.51); Absolute Neutrophil Count 3.1 X10^3/uL (2.0-7.7); Basophil# 0.01 X10^3/uL; Basophil% 0.2 % (0-1); Eosinophil# 0.17 X10^3/uL; Hematocrit 37.3 % (37-47); Hemoglobin 11.9 g/dl (12.0-15.0); Lymphocyte # 1.64 X10^3/ul (4.0); Lymphocyte % 28.8 % (19-41); Mean Corp Hgb Conc 31.9 g/gl (32-36); Mean Corpuscular Hgb 28.1 pg (27.0-32.0); Mean Platelet Vol. 10.4 fl (6.2-12.0); Monocyte# 0.73 X10^3/uL; Monocyte% 12.8 % (0-10); Neutrophil # 3.06 X10^3/uL (2.7-7.7); Neutrophil % 53.8 % (47-70); Platelet Count 253 K/mm3 (150-450); RBC Distribution Width CV 14.3 % (11.6-14.6); RBC Distribution Width SD 45.7 fl (35.1-43.9); Red Blood Count 4.24 M/mm3 (4.2-5.4); White Blood Count 5.7 K/mm3 (4.4-11.0)
[2018-07-16 06:32] LABS: POSITIVE COUNT NO; POSITIVE DIFFERENTIAL NO; POSITIVE MORPHOLOGY NO
[2018-07-16 06:37] LABS: Anion Gap 7 (5-15); BUN 7 mg/dL (7-18); BUN/Creat Ratio 16.6 RATIO (10-20); Calcium,Total 9.2 mg/dL (8.5-10.1); Chloride 103 mmol/L (98-107); Creatinine, Serum 0.42 mg/dL (0.55-1.02); EST Glomerular Filtration Rate 155 mL/min (>60); Est Glom Filt Rate - Afr Amer 188 mL/min (>60); Glucose 102 mg/dL (74-106); Potassium 3.7 mmol/L (3.5-5.1); Sodium Level 139 mmol/L (136-145)
[2018-07-16 06:56] LABS: Bedside Glucose 107 mg/dL (70-110)
[2018-07-16] MEDS: Ipratropium/Albuterol Sulfate 3 ML AMPUL.NEB INHALATION ×2 (07:30→19:05)
[2018-07-16] MEDS: Aspirin E.C. 325 MG Tablet PO (08:16)
[2018-07-16 08:30] VITALS: PULSE 81; RESP 18
[2018-07-16] MEDS: Tuberculin,Purif.prot.deriv. 50 TU/ML Vial 5 ML ID (12:19)
[2018-07-16 16:00] VITALS: BP 126/72; PULSE 78; RESP 18; TEMP 36.4; O2SAT 97
[2018-07-16 19:05] VITALS: PULSE 80; RESP 18
[2018-07-16 20:00] VITALS: PULSE 90; RESP 16; O2SAT 93
[2018-07-16] MEDS: Atorvastatin Calcium 40 MG Tablet PO (20:28)
[2018-07-17] MEDS: amLODIPine 10 MG Tablet PO (06:35)
[2018-07-17] MEDS: hydroCHLOROthiazide 25 MG Tablet PO (06:35)
[2018-07-17] MEDS: Pantoprazole Sodium 40 MG Tablet PO (06:35)
[2018-07-17] MEDS: Menthol/Lanolin/Calamine/Znox 113 GM Tube 1 APPLIC TOPICAL ×2 (06:35→18:12)
[2018-07-17] MEDS: Ramipril 10 MG Capsule PO (06:35)
[2018-07-17 06:36] VITALS: BP 118/77; PULSE 86
[2018-07-17] MEDS: Metoprolol(XL)Succ 100 MG Tablet PO (06:36)
[2018-07-17] MEDS: Senna/Docusate Sodium 1 Tablet PO ×2 (06:36→18:12)
[2018-07-17 06:45] LABS: Bedside Glucose 116 mg/dL (70-110)
[2018-07-17] MEDS: Ipratropium/Albuterol Sulfate 3 ML AMPUL.NEB INHALATION ×2 (06:57→19:10)
[2018-07-17 07:27] VITALS: PULSE 82; RESP 20; O2SAT 98
[2018-07-17] MEDS: Aspirin E.C. 325 MG Tablet PO (08:34)
[2018-07-17 13:03] VITALS: PULSE 82; RESP 18
--- NOTE | 2018-07-17 15:19 | CASEMGMT ---
Insurance Clinical information faxed. Pending continued stay approval at this time. Auth#[id number] DIVINA Holden, MEDICAL OFFICE MANAGER
[2018-07-17 16:00] VITALS: BP 108/69; PULSE 88; RESP 16; TEMP 36.6; O2SAT 98
--- NOTE | 2018-07-17 16:17 | CHAPLAIN ---
Type of Pastoral Visit _x__ Initial Visit ___ Follow-up Visit ___ On-call Visit ___ General Patient Visit ___ Spiritual Assessment ___ Family Conference ___ Bereavement ___ Rapid Response ___ Code Blue ___ Other (describe below) Pastoral Care Referral From _x__ Patient ___ Family ___ Nurse ___ Physician ___ Mine Environmental Engineer ___ Infrastructure Technician ___ Other (describe below) Sacrament/Intervention _x__ Active listening ___ Anointing ___ Hoahaoism ___ Bereavement ___ Communion _x__ Estrella exploration ___ _x__ Life review _x__ Prayer ___ Reconciliation ___ Sacrament of Sick _x__ Supportive presence ___ Wedding ___ Other (describe below) Pastoral Comments patient displays good attitude and has appreciation for God's care, people's support, and her purpose in life; pt would like to use this time for reflection and new understanding; prayer welcomed
--- NOTE | 2018-07-17 16:25 | PCM.PN.RX ---
<SilverroxicristianoEric - Last Filed: 07/17/18 16:25> Progress Note - Pharmacy Subjective: TCU Admission Objective: Allergies Penicillins [PCN] Allergy (Verified 07/04/18 19:44) Rash albuterol [From Ventolin HFA] Adverse Reaction (Verified 07/04/18 19:44) Other Current Medications Generic Name Dose Route Start Last Admin Trade Name Freq PRN Reason Stop Dose Admin Acetaminophen 1,000 mg 07/15/18 20:35 Tylenol PO Q8H PRN PRN MILD PAIN (1-310) Albuterol Sulfate 2 puff 07/15/18 13:42 Ventolin Hfa (Sp) INHALATION Q4H PRN PRN SOB &/OR WHEEZING Albuterol/Ipratropium 3 ml 07/15/18 13:45 07/17/18 06:57 Duoneb INHALATION 3 ml Q6HWA.RT JP Administration Amlodipine Besylate 10 mg 07/16/18 06:00 07/17/18 06:35 Norvasc PO 10 mg DAILY JP Administration Aspirin 325 mg 07/16/18 08:00 07/17/18 08:34 Ecotrin PO 325 mg DAILYCM JP Administration Atorvastatin Calcium 40 mg 07/16/18 22:00 07/16/18 20:28 Lipitor PO 40 mg QHS JP Administration Bisacodyl 10 mg 07/15/18 20:37 Dulcolax PO DAILY PRN Constipation Calamine/Phenol 1 applic 07/15/18 18:00 07/17/18 06:35 Calmoseptine Ointment TOPICAL 1 applicatio BID JP Administration Protocol Hydrochlorothiazide 25 mg 07/16/18 06:00 07/17/18 06:35 Hctz PO 25 mg DAILY JP Administration Metoprolol Succinate 100 mg 07/16/18 06:00 07/17/18 06:36 Toprol Xl (Beta Vitor) PO 100 mg DAILY JP Administration Nutritional Formula (Lactose Free) 120 ml 07/16/18 17:00 07/17/18 12:05 Ensure Clear PO Not Given 4X/DAY JP Pantoprazole Sodium 40 mg 07/16/18 06:00 07/17/18 06:35 Protonix PO 40 mg DAILY JP Administration Phenol/Menthol 5 spray 07/15/18 13:42 Chloraseptic (Bkc) MM Q2H PRN PRN SORE THROAT Polyethylene Glycol 17 gm 07/16/18 06:00 07/17/18 06:37 Miralax PO Not Given DAILY JP Potassium Chloride 10 meq 07/16/18 08:00 07/17/18 08:34 K-Dur PO 10 meq DAILYCM JP Administration Ramipril 10 mg 07/16/18 06:00 07/17/18 06:35 Altace PO 10 mg DAILY JP Administration Senna/Docusate Sodium 1 tablet 07/16/18 06:00 07/17/18 06:36 Senokot-S, Magdalene-Colace PO 1 tablet BID JP Administration Tuberculin PPD 5 tu 07/23/18 10:00 Tubersol, Aplisol, Ppd ID 07/23/18 10:01 X1 ONE Problem List Abdominal pain (Acute) Nausea & vomiting (Acute) Debility (Acute) Asthma (Chronic) Hypokalemia (Acute) Vital Signs Temp Pulse Resp BP Pulse Ox 97.8 F 88 16 108/69 98 07/17/18 16:00 07/17/18 16:00 07/17/18 16:00 07/17/18 16:00 07/17/18 16:00 Oxygen Delivery Method Room Air Weight: 76.345 kg Body Mass Index (BMI) 27.1 Sodium 139 mmol/L (136-145) 07/16/18 05:05 Potassium 3.7 mmol/L (3.5-5.1) 07/16/18 05:05 Chloride 103 mmol/L (98-107) 07/16/18 05:05 Carbon Dioxide 29.0 mmol/L (21.0-32.0) 07/16/18 05:05 Anion Gap 7 (5-15) 07/16/18 05:05 BUN 7 mg/dL (7-18) 07/16/18 05:05 Creatinine 0.42 mg/dL (0.55-1.02) L 07/16/18 05:05 Est GFR (MDRD) Af Amer 188 mL/min (>60) 07/16/18 05:05 Est GFR (MDRD) Non-Af 155 mL/min (>60) 07/16/18 05:05 BUN/Creatinine Ratio 16.6 RATIO (10-20) 07/16/18 05:05 Glucose 102 mg/dL (74-106) 07/16/18 05:05 Assessment/Plan: 1) Pain APAP for mild pain. Continue to monitor prn medication use, daily pain scores. 2) HTN Amlodipine, HCTZ, metoprolol, ramipril. Continue to monitor BP/HR, renal function, electrolytes (patient also taking KCl supplement). 3) CV PPx ASA daily. Continue to monitor s/s bleeding/clot. 4) HLD Atorvastatin daily. Continue to monitor lipids. 5) GI Pantoprazole daily. Continue to monitor for s/s GI distress. Psychotropic Medications: None Unnecessary Medications: None Bowel Regimen: 6) Senna/s, PEG, prn bisacodyl. Continue to monitor prn medication use, for constipation/diarrhea. Date of Note:: 07/17/18 - Provider Comments Provider responsibility: Provider responsible to enter orders to implement recommendations <Ganesh Kirby Chi - Last Filed: 07/17/18 17:53> Progress Note - Pharmacy Subjective: [] Objective: Allergies Penicillins [PCN] Allergy (Verified 07/04/18 19:44) Rash albuterol [From Ventolin HFA] Adverse Reaction (Verified 07/04/18 19:44) Other Current Medications Generic Name Dose Route Start Last Admin Trade Name Freq PRN Reason Stop Dose Admin Acetaminophen 1,000 mg 07/15/18 20:35 Tylenol PO Q8H PRN PRN MILD PAIN (1-3/10) Albuterol Sulfate 2 puff 07/15/18 13:42 Ventolin Hfa (Sp) INHALATION Q4H PRN PRN SOB &/OR WHEEZING Albuterol/Ipratropium 3 ml 07/15/18 13:45 07/17/18 06:57 Duoneb INHALATION 3 ml Q6HWA.RT JP Administration Amlodipine Besylate 10 mg 07/16/18 06:00 07/17/18 06:35 Norvasc PO 10 mg DAILY JP Administration Aspirin 325 mg 07/16/18 08:00 07/17/18 08:34 Ecotrin PO 325 mg DAILYCM JP Administration Atorvastatin Calcium 40 mg 07/16/18 22:00 07/16/18 20:28 Lipitor PO 40 mg QHS JP Administration Bisacodyl 10 mg 07/15/18 20:37 Dulcolax PO DAILY PRN Constipation Calamine/Phenol 1 applic 07/15/18 18:00 07/17/18 06:35 Calmoseptine Ointment TOPICAL 1 applicatio BID JP Administration Protocol Hydrochlorothiazide 25 mg 07/16/18 06:00 07/17/18 06:35 Hctz PO 25 mg DAILY JP Administration Metoprolol Succinate 100 mg 07/16/18 06:00 07/17/18 06:36 Toprol Xl (Beta Vitor) PO 100 mg DAILY JP Administration Nutritional Formula (Lactose Free) 120 ml 07/16/18 17:00 07/17/18 12:05 Ensure Clear PO Not Given 4X/DAY JP Pantoprazole Sodium 40 mg 07/16/18 06:00 07/17/18 06:35 Protonix PO 40 mg DAILY JP Administration Phenol/Menthol 5 spray 07/15/18 13:42 Chloraseptic (Bkc) MM Q2H PRN PRN SORE THROAT Polyethylene Glycol 17 gm 07/16/18 06:00 07/17/18 06:37 Miralax PO Not Given DAILY JP Potassium Chloride 10 meq 07/16/18 08:00 07/17/18 08:34 K-Dur PO 10 meq DAILYCM JP Administration Ramipril 10 mg 07/16/18 06:00 07/17/18 06:35 Altace PO 10 mg DAILY JP Administration Senna/Docusate Sodium 1 tablet 07/16/18 06:00 07/17/18 06:36 Senokot-S, Magdalene-Colace PO 1 tablet BID JP Administration Tuberculin PPD 5 tu 07/23/18 10:00 Tubersol, Aplisol, Ppd ID 07/23/18 10:01 X1 ONE Problem List Abdominal pain (Acute) Nausea & vomiting (Acute) Debility (Acute) Asthma (Chronic) Hypokalemia (Acute) Vital Signs Temp Pulse Resp BP Pulse Ox 97.8 F 88 16 108/69 98 07/17/18 16:00 07/17/18 16:00 07/17/18 16:00 07/17/18 16:00 07/17/18 16:00 Oxygen Delivery Method Room Air Weight: 76.345 kg Body Mass Index (BMI) 27.1 Sodium 139 mmol/L (136-145) 07/16/18 05:05 Potassium 3.7 mmol/L (3.5-5.1) 07/16/18 05:05 Chloride 103 mmol/L (98-107) 07/16/18 05:05 Carbon Dioxide 29.0 mmol/L (21.0-32.0) 07/16/18 05:05 Anion Gap 7 (5-15) 07/16/18 05:05 BUN 7 mg/dL (7-18) 07/16/18 05:05 Creatinine 0.42 mg/dL (0.55-1.02) L 07/16/18 05:05 Est GFR (MDRD) Af Amer 188 mL/min (>60) 07/16/18 05:05 Est GFR (MDRD) Non-Af 155 mL/min (>60) 07/16/18 05:05 BUN/Creatinine Ratio 16.6 RATIO (10-20) 07/16/18 05:05 Glucose 102 mg/dL (74-106) 07/16/18 05:05 Assessment/Plan: Psychotropic Medications: Unnecessary Medications: Bowel Regimen: - Provider Comments Provider responsibility: Provider responsible to enter orders to implement recommendations Provider Comments to Recommendations by Pharmacy: Agree
[2018-07-17 19:10] VITALS: PULSE 85; RESP 18
[2018-07-17 21:00] VITALS: PULSE 97; RESP 16; O2SAT 96
[2018-07-17] MEDS: Atorvastatin Calcium 40 MG Tablet PO (21:07)
[2018-07-18 05:24] VITALS: BP 106/70; PULSE 96
[2018-07-18] MEDS: Metoprolol(XL)Succ 100 MG Tablet PO (05:24)
[2018-07-18] MEDS: hydroCHLOROthiazide 25 MG Tablet PO (05:24)
[2018-07-18] MEDS: Senna/Docusate Sodium 1 Tablet PO (05:24)
[2018-07-18] MEDS: amLODIPine 10 MG Tablet PO (05:24)
[2018-07-18] MEDS: Ramipril 10 MG Capsule PO (05:24)
[2018-07-18] MEDS: Pantoprazole Sodium 40 MG Tablet PO (05:24)
[2018-07-18] MEDS: Menthol/Lanolin/Calamine/Znox 113 GM Tube 1 APPLIC TOPICAL (05:28)
[2018-07-18 06:45] VITALS: PULSE 90; RESP 18; O2SAT 95
[2018-07-18] MEDS: Ipratropium/Albuterol Sulfate 3 ML AMPUL.NEB INHALATION ×2 (06:45→13:03)
[2018-07-18 06:51] LABS: Bedside Glucose 121 mg/dL (70-110)
[2018-07-18] MEDS: Aspirin E.C. 325 MG Tablet PO (09:05)
[2018-07-18 13:03] VITALS: PULSE 84; RESP 18
[2018-07-18 15:37] VITALS: BP 118/66; PULSE 84; RESP 14; TEMP 37; O2SAT 96
[2018-07-18 20:00] VITALS: PULSE 82; RESP 18; O2SAT 99
[2018-07-18] MEDS: Atorvastatin Calcium 40 MG Tablet PO (20:41)
[2018-07-19 06:22] VITALS: BP 117/62; PULSE 88
[2018-07-19] MEDS: Metoprolol(XL)Succ 100 MG Tablet PO (06:22)
[2018-07-19] MEDS: amLODIPine 10 MG Tablet PO (06:22)
[2018-07-19] MEDS: Pantoprazole Sodium 40 MG Tablet PO (06:22)
[2018-07-19] MEDS: hydroCHLOROthiazide 25 MG Tablet PO (06:22)
[2018-07-19] MEDS: Nystatin Powder 15gm Bottle 1 APPLIC TOPICAL ×2 (06:23→20:48)
[2018-07-19] MEDS: Menthol/Lanolin/Calamine/Znox 113 GM Tube 1 APPLIC TOPICAL ×2 (06:23→17:01)
[2018-07-19] MEDS: Ramipril 10 MG Capsule PO (06:26)
[2018-07-19 06:42] VITALS: PULSE 82; RESP 18; O2SAT 98
[2018-07-19] MEDS: Ipratropium/Albuterol Sulfate 3 ML AMPUL.NEB INHALATION ×3 (06:42→20:30)
[2018-07-19] MEDS: Aspirin E.C. 325 MG Tablet PO (08:15)
[2018-07-19 08:36] LABS: Bedside Glucose 99 mg/dL (70-110)
--- NOTE | 2018-07-19 09:54 | CASEMGMT ---
Brief interview for mental status (BIMS) and mood (PHQ-9) completed on this day. BIMS score 14/15. PHQ-9 score 10/06. Pradeep Chamorro social work student
[2018-07-19 10:00] VITALS: PULSE 80; RESP 18; O2SAT 18
--- NOTE | 2018-07-19 11:31 | CASEMGMT ---
Insurance/Social Work Continued stay denied with last covered day today 07/19/18 and d/c tomorrow 07/20/18. Auth #[id number] Met with pt in room and explained denial. Pt is agreeable to d/c home tomorrow. Pt lives alone but does have a support system of friends to assist. Therapy is not recommending continued therapy services at this time. Pt does need a standard cane. Pt states she will call her support system of friends and mobilize them to assist her with transportation and obtaining groceries and other at home needs for tomorrow. Pt denies need for SW to call anyone to notify of d/c plan as she will take care of this. Referral made to [facility] for standard cane. They have made arrangements for Brett to provide cane for pt and are aware pt will need it for d/c tomorrow. Brett will contact pt with delivery information. No further d/c needs at this time. Plan: Home alone 07/20/18 DIVINA Stephens
[2018-07-19 13:05] VITALS: PULSE 79; RESP 16
--- NOTE | 2018-07-19 13:54 | PCM.PN.SRG ---
Patient Problems: Active and Suspected Problems Abdominal pain (Acute) Nausea & vomiting (Acute) Debility (Acute) Hypokalemia (Acute) Subjective: tolerating diet, feeling stronger - ready for discharge tomorrow - Physical Exam Vital Signs Temp Pulse Resp BP Pulse Ox 98.6 F 79 16 117/62 98 07/18/18 15:37 07/19/18 13:05 07/19/18 13:05 07/19/18 06:22 07/19/18 06:42 Oxygen Delivery Method Room Air Weight: 76.345 kg Body Mass Index (BMI) 27.1 Intake and Output for Last 24 Hours 07/17/18 07/18/18 07/19/18 23:59 23:59 23:59 Intake Total 1740 / 1740 900 / 900 920 / 920 Balance 1740 / 1740 900 / 900 920 / 920 POC Glucose 07/19/18 06:38 POC Glucose 99 Medical Necessity - Tobacco Use Smoking Status: Never smoker Tobacco Use: Non-smoker Assessment/Plan All Active Problems SBO (small bowel obstruction) (Acute) Acute electrocardiogram changes (Acute) Abdominal pain (Acute) Nausea & vomiting (Acute) Debility (Acute) Hypokalemia (Acute) s/p laparoscopic lysis of adhesions - doing well with reconditioning/strengthening. anticipate dfischarge tomorrow. will check labs at discharge including nutrition parameters. please have patient call my office for follow up next week - (T, or Sun... - [phone])
--- NOTE | 2018-07-19 13:57 | PCM.DC.SUM ---
Discharge Date and Diagnosis - Problem List Patient Problems: Active and Suspected Problems Abdominal pain (Acute) Nausea & vomiting (Acute) Debility (Acute) Hypokalemia (Acute) Date of Admission: 07/15/18 - Primary Discharge Diagnosis Active and Suspected Problems Abdominal pain (Acute) Nausea & vomiting (Acute) Debility (Acute) Hypokalemia (Acute) - Secondary Discharge Diagnosis Chronic Problems HTN (hypertension) (Chronic) HLD (hyperlipidemia) (Chronic) Diabetes mellitus, type II (Chronic) Asthma (Chronic) Hospital Course and Treatment Summary of Care Provided: The patient is a 78 year old F [] Patient Problems: Active and Suspected Problems Abdominal pain (Acute) Nausea & vomiting (Acute) Debility (Acute) Hypokalemia (Acute) - Physical Exam Vital Signs Temp Pulse Resp BP Pulse Ox 98.6 F 79 16 117/62 98 07/18/18 15:37 07/19/18 13:05 07/19/18 13:05 07/19/18 06:22 07/19/18 06:42 Oxygen Delivery Method Room Air Weight: 76.345 kg Body Mass Index (BMI) 27.1 Intake and Output for Last 24 Hours 07/17/18 07/18/18 07/19/18 23:59 23:59 23:59 Intake Total 1740 / 1740 900 / 900 920 / 920 Balance 1740 / 1740 900 / 900 920 / 920 POC Glucose 07/19/18 06:38 POC Glucose 99 Home Medications: Medications to take at Discharge Albuterol IH (ProAir) [Proair Hfa] 2 puff INHALATION Q4H PRN PRN 07/04/18 Aspirin E.C. [Ecotrin] 325 mg PO DAILY 07/04/18 Atorvastatin Calcium [Lipitor] 40 mg PO DAILY 07/04/18 Budesonide/Formoterol 160/4.5 [Symbicort 160/4.5 Mcg Inhaler (SP)] 2 puff INHALATION BID PRN 07/04/18 Felodipine [Plendil] 10 mg PO DAILY 07/04/18 Hydrochlorothiazide [Hctz] 25 mg PO DAILY 07/04/18 Metoprolol Succinate 100 mg PO DAILY 07/04/18 Potassium Chloride 10 meq PO DAILY 07/04/18 Ramipril 10 mg PO DAILY 07/04/18 Menthol/Lanolin/Calamine/Znox [Calmoseptine Ointment] 1 applic TOPICAL BID 07/15/18 Phenol/Sodium Phenolate [Chloraseptic (BKC)] 5 spray MM Q2H PRN PRN ml 07/15/18 Acetaminophen [Tylenol] 1,000 mg PO Q8H PRN PRN tablet 07/19/18 Nystatin Powder [Mycostatin Powder] 1 applic TOPICAL 0600,2200 bottle 07/19/18 Pantoprazole Sodium [Protonix] 40 mg PO DAILY #30 tab 07/19/18 Following Prescrptions Were Given to Patient: Pantoprazole Sodium [Protonix] 40 mg PO DAILY #30 tab Primary Care Physician: Meryl Mott MD [Primary Care Provider] - Please Follow Up With: Meryl Mott MD Please Follow Up With: Maxim Sultana MD - Sunday, of Sunday next week When: [phone] Medical Necessity - Tobacco Use Smoking Status: Never smoker Tobacco Use: Non-smoker Meaningful Use Info Meaningful Use Diagnoses (Choose all that apply): None applicable
--- NOTE | 2018-07-19 14:09 | PCM.DC ---
- Discharge Diagnoses Current Active Problems: Current Active and Chronic Problems Abdominal pain (Acute) Nausea & vomiting (Acute) Debility (Acute) Asthma (Chronic) Hypokalemia (Acute) You will use the following diet at home:: No restrictions, Regular Your food should be the consistency of: Regular Your liquids should be the consistency of: Regular/Thin Discharge Activity: Return to Normal Activity, Use Walker Weight Bearing Status: Weight bearing as tolerated Call your doctor if you observe: Fever of 101 or Higher, Inability to urinate, Inability to have a bowel movement, Shortness of breath, Chest pain, Uncontrolled pain Allergies/Adverse Reactions: Allergies Penicillins [PCN] Allergy (Verified 07/04/18 19:44) Rash albuterol [From Ventolin HFA] Adverse Reaction (Verified 07/04/18 19:44) Other Medications to take at Discharge Albuterol IH (ProAir) [Proair Hfa] 2 puff INHALATION Q4H PRN PRN 07/04/18 Aspirin E.C. [Ecotrin] 325 mg PO DAILY 07/04/18 Atorvastatin Calcium [Lipitor] 40 mg PO DAILY 07/04/18 Budesonide/Formoterol 160/4.5 [Symbicort 160/4.5 Mcg Inhaler (SP)] 2 puff INHALATION BID PRN 07/04/18 Felodipine [Plendil] 10 mg PO DAILY 07/04/18 Hydrochlorothiazide [Hctz] 25 mg PO DAILY 07/04/18 Metoprolol Succinate 100 mg PO DAILY 07/04/18 Potassium Chloride 10 meq PO DAILY 07/04/18 Ramipril 10 mg PO DAILY 07/04/18 Menthol/Lanolin/Calamine/Znox [Calmoseptine Ointment] 1 applic TOPICAL BID 07/15/18 Phenol/Sodium Phenolate [Chloraseptic (BKC)] 5 spray MM Q2H PRN PRN ml 07/15/18 Acetaminophen [Tylenol] 1,000 mg PO Q8H PRN PRN tablet 07/19/18 Nystatin Powder [Mycostatin Powder] 1 applic TOPICAL 0600,2200 bottle 07/19/18 Pantoprazole Sodium [Protonix] 40 mg PO DAILY #30 tab 07/19/18 The following prescriptions were given: Pantoprazole Sodium [Protonix] 40 mg PO DAILY #30 tab Primary Care Physician: Meryl Mott MD [Primary Care Provider] - Please follow up with your Primary Care Physician in: 1 week. Test Results: Test results from this visit will be discussed in further detail at your follow-up appointment, if applicable. Please Follow Up With: Meryl Mott MD Please Follow Up With: Maxim Sultana MD - Sunday, of Sunday next week When: [phone] Proposed Discharge Date: 07/20/18
--- NOTE | 2018-07-19 14:09 | CASEMGMT ---
Student SW documentation reviewed. DIVINA Stephens
--- NOTE | 2018-07-19 14:12 | DCINST_ITS ---
- Discharge Diagnoses Current Active Problems: Current Active and Chronic Problems Abdominal pain (Acute) Nausea & vomiting (Acute) Debility (Acute) Asthma (Chronic) Hypokalemia (Acute) You will use the following diet at home:: No restrictions, Regular Your food should be the consistency of: Regular Your liquids should be the consistency of: Regular/Thin Discharge Activity: Return to Normal Activity, Use Walker Weight Bearing Status: Weight bearing as tolerated Call your doctor if you observe: Fever of 101 or Higher, Inability to urinate, Inability to have a bowel movement, Shortness of breath, Chest pain, Uncontrolled pain Allergies/Adverse Reactions: Allergies Penicillins [PCN] Allergy (Verified 07/04/18 19:44) Rash albuterol [From Ventolin HFA] Adverse Reaction (Verified 07/04/18 19:44) Other Medications to take at Discharge Albuterol IH (ProAir) [Proair Hfa] 2 puff INHALATION Q4H PRN PRN 07/04/18 Aspirin E.C. [Ecotrin] 325 mg PO DAILY 07/04/18 Atorvastatin Calcium [Lipitor] 40 mg PO DAILY 07/04/18 Budesonide/Formoterol 160/4.5 [Symbicort 160/4.5 Mcg Inhaler (SP)] 2 puff INHALATION BID PRN 07/04/18 Felodipine [Plendil] 10 mg PO DAILY 07/04/18 Hydrochlorothiazide [Hctz] 25 mg PO DAILY 07/04/18 Metoprolol Succinate 100 mg PO DAILY 07/04/18 Potassium Chloride 10 meq PO DAILY 07/04/18 Ramipril 10 mg PO DAILY 07/04/18 Menthol/Lanolin/Calamine/Znox [Calmoseptine Ointment] 1 applic TOPICAL BID 07/15/18 Phenol/Sodium Phenolate [Chloraseptic (BKC)] 5 spray MM Q2H PRN PRN ml 07/15/18 Acetaminophen [Tylenol] 1,000 mg PO Q8H PRN PRN tablet 07/19/18 Nystatin Powder [Mycostatin Powder] 1 applic TOPICAL 0600,2200 bottle 07/19/18 Pantoprazole Sodium [Protonix] 40 mg PO DAILY #30 tab 07/19/18 The following prescriptions were given: Pantoprazole Sodium [Protonix] 40 mg PO DAILY #30 tab Primary Care Physician: Meryl Mott MD [Primary Care Provider] - Please follow up with your Primary Care Physician in: 1 week. Test Results: Test results from this visit will be discussed in further detail at your follow- up appointment, if applicable. Please Follow Up With: Meryl Mott MD Please Follow Up With: Maxim Sultana MD - Sunday, of Sunday next week When: [phone] Proposed Discharge Date: 07/20/18
--- NOTE | 2018-07-19 14:14 | PCM.DC.SUM ---
Discharge Date and Diagnosis - Problem List Patient Problems: Active and Suspected Problems Abdominal pain (Acute) Nausea & vomiting (Acute) Debility (Acute) Hypokalemia (Acute) Date of Admission: 07/15/18 Date of Discharge: 07/20/18 - Primary Discharge Diagnosis Active and Suspected Problems Abdominal pain (Acute) Nausea & vomiting (Acute) Debility (Acute) Hypokalemia (Acute) - Secondary Discharge Diagnosis Chronic Problems HTN (hypertension) (Chronic) HLD (hyperlipidemia) (Chronic) Diabetes mellitus, type II (Chronic) Asthma (Chronic) Hospital Course and Treatment Imaging Results: 07/15/18 13:50 Diet: No Gastric Stimulus/Low Residue Is pt able to select menu?: Yes Diet Comments: no carbonated beverages Labs (Last 48 Hours) 07/18/18 07/19/18 06:39 06:38 POC Glucose 121 H 99 Operations: None Procedures: None Summary of Care Provided: The patient is a 78 year old Female with below past medical history hospitalized for small bowel obstruction, requiring laparoscopic lysis of adhesions 07/09/[address] Sultana, admitted with debility, here for rehabilitation, strengthening, prior to discharge home alone. [] Discharge home alone. Patient Problems: Active and Suspected Problems Abdominal pain (Acute) Nausea & vomiting (Acute) Debility (Acute) Hypokalemia (Acute) - Physical Exam Vital Signs Temp Pulse Resp BP Pulse Ox 98.6 F 79 16 117/62 98 07/18/18 15:37 07/19/18 13:05 07/19/18 13:05 07/19/18 06:22 07/19/18 06:42 Oxygen Delivery Method Room Air Weight: 76.345 kg Body Mass Index (BMI) 27.1 Intake and Output for Last 24 Hours 07/17/18 07/18/18 07/19/18 23:59 23:59 23:59 Intake Total 1740 / 1740 900 / 900 920 / 920 Balance 1740 / 1740 900 / 900 920 / 920 POC Glucose 07/19/18 06:38 POC Glucose 99 Discharge Diet: No Restrictions Discharge Activity: Return to Normal Activity, Use Walker Weight Bearing Status: Weight bearing as tolerated Call your doctor if you observe: Fever of 101 or Higher, Inability to urinate, Inability to have a bowel movement, Shortness of breath, Chest pain, Uncontrolled pain Home Medications: Medications to take at Discharge Albuterol IH (ProAir) [Proair Hfa] 2 puff INHALATION Q4H PRN PRN 07/04/18 Aspirin E.C. [Ecotrin] 325 mg PO DAILY 07/04/18 Atorvastatin Calcium [Lipitor] 40 mg PO DAILY 07/04/18 Budesonide/Formoterol 160/4.5 [Symbicort 160/4.5 Mcg Inhaler (SP)] 2 puff INHALATION BID PRN 07/04/18 Felodipine [Plendil] 10 mg PO DAILY 07/04/18 Hydrochlorothiazide [Hctz] 25 mg PO DAILY 07/04/18 Metoprolol Succinate 100 mg PO DAILY 07/04/18 Potassium Chloride 10 meq PO DAILY 07/04/18 Ramipril 10 mg PO DAILY 07/04/18 Menthol/Lanolin/Calamine/Znox [Calmoseptine Ointment] 1 applic TOPICAL BID 07/15/18 Phenol/Sodium Phenolate [Chloraseptic (BKC)] 5 spray MM Q2H PRN PRN ml 07/15/18 Acetaminophen [Tylenol] 1,000 mg PO Q8H PRN PRN tablet 07/19/18 Nystatin Powder [Mycostatin Powder] 1 applic TOPICAL 0600,2200 bottle 07/19/18 Pantoprazole Sodium [Protonix] 40 mg PO DAILY #30 tab 07/19/18 Following Prescrptions Were Given to Patient: Pantoprazole Sodium [Protonix] 40 mg PO DAILY #30 tab Primary Care Physician: Meryl Mott MD [Primary Care Provider] - Please follow up with your Primary Care Physician in: 1 week. Please Follow Up With: Meryl Mott MD Please Follow Up With: Maxim Sultana MD - Sunday, of Sunday next week When: [phone] Disposition: Home Minutes spent on discharge:: 30 Patient Condition:: Stable Medical Necessity - Tobacco Use Smoking Status: Never smoker Tobacco Use: Non-smoker Meaningful Use Info Meaningful Use Diagnoses (Choose all that apply): None applicable
[2018-07-19 16:00] VITALS: BP 115/51; PULSE 77; RESP 18; TEMP 36.6; O2SAT 96
[2018-07-19] MEDS: Senna/Docusate Sodium 1 Tablet PO (17:01)
[2018-07-19 20:30] VITALS: PULSE 89; RESP 18
[2018-07-19] MEDS: Atorvastatin Calcium 40 MG Tablet PO (20:48)
[2018-07-20 06:51] LABS: Bedside Glucose 101 mg/dL (70-110)
[2018-07-20] MEDS: Ramipril 10 MG Capsule PO (06:52)
[2018-07-20] MEDS: hydroCHLOROthiazide 25 MG Tablet PO (06:52)
[2018-07-20] MEDS: amLODIPine 10 MG Tablet PO (06:52)
[2018-07-20 06:53] VITALS: BP 121/66; PULSE 82
[2018-07-20] MEDS: Pantoprazole Sodium 40 MG Tablet PO (06:53)
[2018-07-20] MEDS: Metoprolol(XL)Succ 100 MG Tablet PO (06:53)
[2018-07-20] MEDS: Senna/Docusate Sodium 1 Tablet PO (06:53)
[2018-07-20] MEDS: Menthol/Lanolin/Calamine/Znox 113 GM Tube 1 APPLIC TOPICAL (06:54)
[2018-07-20] MEDS: Nystatin Powder 15gm Bottle 1 APPLIC TOPICAL (06:55)
[2018-07-20 07:08] VITALS: PULSE 81; RESP 20
[2018-07-20] MEDS: Ipratropium/Albuterol Sulfate 3 ML AMPUL.NEB INHALATION (07:08)
[2018-07-20 08:03] LABS: Absolute Lymphocyte Count 1.68 X10^3/ul (0.83-4.51); Absolute Neutrophil Count 2.7 X10^3/uL (2.0-7.7); Basophil# 0.05 X10^3/uL; Eosinophil# 0.18 X10^3/uL; Eosinophils% 3.5 % (0-5); Hematocrit 35.5 % (37-47); Hemoglobin 11.5 g/dl (12.0-15.0); Lymphocyte # 1.68 X10^3/ul (4.0); Lymphocyte % 32.3 % (19-41); Mean Corp Hgb Conc 32.4 g/gl (32-36); Mean Corpuscular Hgb 28.5 pg (27.0-32.0); Mean Corpuscular Volume 88.1 fL (81-99); Mean Platelet Vol. 10.5 fl (6.2-12.0); Monocyte# 0.57 X10^3/uL; Neutrophil % 51.8 % (47-70); POSITIVE COUNT NO; POSITIVE DIFFERENTIAL NO; POSITIVE MORPHOLOGY NO; Platelet Count 282 K/mm3 (150-450); RBC Distribution Width CV 14.1 % (11.6-14.6); RBC Distribution Width SD 44.8 fl (35.1-43.9); Red Blood Count 4.03 M/mm3 (4.2-5.4); White Blood Count 5.2 K/mm3 (4.4-11.0)
[2018-07-20 08:33] LABS: ALB/GLOB Ratio 0.7 RATIO (0.9-2.4); AST(SGOT) 29 U/L (15-37); Alanine Aminotransfer ALT/SGPT 60 U/L (13-56); Albumin, Serum 2.7 g/dL (3.2-5.0); Alkaline Phosphatase 64 U/L (45-117); Anion Gap 9 (5-15); BUN 11 mg/dL (7-18); BUN/Creat Ratio 22.1 RATIO (10-20); Calcium,Total 9.1 mg/dL (8.5-10.1); Chloride 104 mmol/L (98-107); EST Glomerular Filtration Rate 128 mL/min (>60); Est Glom Filt Rate - Afr Amer 155 mL/min (>60); Glucose 103 mg/dL (74-106); Magnesium 1.9 mg/dL (1.6-2.6); Potassium 3.6 mmol/L (3.5-5.1); Prealbumin 11.7 mg/dL (20.0-40.0); Protein, Total 6.7 g/dL (6.4-8.2); Sodium Level 140 mmol/L (136-145)
[2018-07-20] MEDS: Aspirin E.C. 325 MG Tablet PO (09:32)
[2018-07-20 09:36] VITALS: PULSE 90; O2SAT 95
[2018-07-20 10:50] VITALS: BP 105/62; PULSE 85; RESP 18; TEMP 36.4; O2SAT 97
--- NOTE | 2018-07-22 12:44 | CASEMGMT ---
insurance insurance notified of d/c on 07/20/18. Auth #[id number] DIVINA Stephens
--- NOTE | 2018-07-23 15:14 | MDS.RN ---
Information for the mds was obtained from review of the clinical record, interview of resident, staff, and direct observation of resident's care.
== END 2018-07-20 12:30 | disposition home or self-care (01) | DRG 948 ==
PROVIDERS: Surgery; Admitting Provider Family Medicine Geriatric Medicine; Family Provider Internal Medicine; PCP Internal Medicine; Referring Provider Family Medicine Geriatric Medicine; Visit Provider Family Medicine Geriatric Medicine
DX: R53.81 Other malaise (principal); K21.9 Gastro-esophageal reflux disease without esophagitis; E87.6 Hypokalemia; E78.5 Hyperlipidemia, unspecified; I10 Essential (primary) hypertension; J45.909 Unspecified asthma, uncomplicated; E11.9 Type 2 diabetes mellitus without complications; Z98.890 Other specified postprocedural states; K57.30 Diverticulosis of large intestine without perforation or abscess without bleeding
CPT/HCPCS: 36415; 80048; 80053; 82962; 83735; 84100; 84134; 85025; 94640; 94762; 97110; 97116; 97163; 97166; 97530; 97535; 97802

== ENCOUNTER → 2019-01-02 | Outpatient (CLI) | payer OTHER, SELFPAY ==
--- NOTE | 2019-01-02 | BRBX_PTH ---
PATIENT: CARO BARRON LOC: [facility] U#:[id number] AGE/SX: 78/F ROOM: RE01/02/[address]: Dr. Lizeth Moreno MD : [id number] BED: DIS: 01/02/2019 SPEC #: [id number] RECD: 01/02/19 12:49 STATUS: SILVIA RETravis #: [id number] JOSE ANTONIO: 01/02/19 00:[address]: Lizeth Moreno DEPT: SURGICAL PATHOLOGY RECD BY: Parveen López ENTERED: 01/02/19 12:50 SP TYPE: BREAST BX OTHR DR: Dr. Meryl Mott MD Tissues: Right breast, NOS Procedures: Surgery Specimen Level IV HEADER OPERATION: Right stereotactic breast biopsy PRE-OP DIAGNOSIS: Right 3 o'clock anterior depth microcalcifications TISSUE SUBMITTED: Right breast core tissue ISCHEMIC TIME: 1 minute FIXATION TIME: 11 hours MICROSCOPIC DIAGNOSIS Right breast, stereotactic core biopsy: Intraductal hyperplasia without atypia. Fibroadenomatous change. Focal fibrocystic change. Banal microcalcifications. No evidence of malignancy. AM:ashwin 01/03/19 MICROSCOPIC DESCRIPTION Slides are reviewed. GROSS DESCRIPTION Received is one container labeled with the patient's name and not further designated. The specimen consists of multiple elongated fragments of alcazar-yellow fibroadipose tissue that in aggregate measure 5 x 3 x 0.3 cm. The entire specimen is submitted in two cassettes. / ROMEO:ashwin 01/02/19 TC:5 CPT: 36663
--- NOTE | 2019-01-02 12:23 | OP.PCM_ITS ---
Report of Operation Date of Procedure: 01/02/19 Pre-Operative Diagnosis: abnormal calcifications of right breast mammograms Post-Operative Diagnosis: same as above Surgery/Procedure Performed:: right stereotactic breast biopsy Description of Surgical Findings:: abnormal calcifications of right breast mammograms Type of Anesthesia:: Local - 1% xylocaine Specimen's removed: right breast tissue Estimated Blood Loss (mL): minimal Description of Procedure: After informed consent was given, the patient was brought into the breast biopsy suite. Appropriate time out protocol was followed. She was then placed in the prone position on the stereotactic biopsy table. The patient?s right breast was then placed at the opening at the head of the table. A avionics systems integration specialist compression mammogram was then obtained in the lateral view. The suspicious radiological lesion was then identified. Stereo pictures of the lesion were then taken for XYZ coordinates. The Mammotome biopsy stylus was then positioned where it would be entering into the patient?s breast. The skin at this site was then cleansed with a surgical skin preparation. The skin and subcutaneous tissues at this site were then infiltrated with 1% xylocaine. A small skin incision was made with an 11 blade scalpel. The biopsy stylus was then positioned into the patient?s breast at the proper coordinates of depth. Using the Mammotome vacuum-assist device, several core samples of breast tissue were obtained. A specimen mammogram was the obtained and revealed that the suspicious lesion was within the specimen. A hemostatic marker clip was then placed into the biopsy cavity and a avionics systems integration specialist film revealed that it was properly deployed. The patient was then placed in the supine position and pressure was applied to the breast until no active bleeding was noted. A 3-0 nylon suture was placed to reapproximate the skin. A unilateral mammogram in the CC and MLO view were then taken which revealed that the marker clip was in the same area as the previous suspicious lesion. The patient tolerated the procedure well and was discharged from the breast biopsy suite in good condition. - Complications none noted
== END | disposition home or self-care (01) ==
LOC: BIRAD 07:30
PROVIDERS: Family Provider Internal Medicine; PCP Internal Medicine; Referring Provider Surgery; Visit Provider Surgery
DX: N60.91 Unspecified benign mammary dysplasia of right breast (principal); D24.1 Benign neoplasm of right breast; N60.11 Diffuse cystic mastopathy of right breast
CPT/HCPCS: 19081; 88305; J7050